=== PATIENT | female | born 1945 | race Caucasian/White ===

== ENCOUNTER 2017-08-01 13:46 | Inpatient (IN) | payer MEDICARE, BC ==
[2017-08-01] MEDS ORDERED: Sodium Chloride 0.9% 1,000 ML IV ONE ×2 (14:16→17:19)
[2017-08-01] MEDS ORDERED: Sodium Chloride 0.9% 10 ML Syringe FLUSH PRN (14:18)
--- NOTE | 2017-08-01 14:34 | EDM.PDOC ---
ED HPI GENERAL MEDICAL PROBLEM - General Chief Complaint: Neurological Problem Stated Complaint: WEAK,AND CONFUSED Time Seen by Provider: 08/01/17 14:34 Source of Information: Reports: Patient, Family (, daughter) History Limitations: Reports: No Limitations - History of Present Illness INITIAL COMMENTS - FREE TEXT/NARRATIVE: 68-year-old female presents with her and daughter for evaluation and treatment of confusion and weakness. Reportedly the first appreciated confusion yesterday. She is alert and orientated 3 will here in the ER. She does take longer than expected to respond to questions such as day, name and date of . She is currently denying any pain. She denies any chest pain, abdominal pain, headaches, cough, nausea and vomiting. Patient is a diabetic. Blood sugar upon arrival in the ER is 126. Patient has a diabetic foot ulcer to the right medial ball of her foot. Unclear exactly how long this has been going on for. Reportedly she has diabetic neuropathy. Right foots and distal lower leg are erythematous, swollen and warm to touch. Duration: Day(s): (2) - Related Data Allergies Allergy/AdvReac Type Severity Reaction Status Date / Time No Known Allergies Allergy Verified 07/03/14 19:52 Home Meds: Home Meds Pregabalin [Lyrica] 200 mg PO TID 07/03/14 [History] metFORMIN [Glucophage] 500 mg PO TIDM 07/03/14 [History] Insulin Glarg,Human.Rec.Analog [Lantus] 28 unit SUBCUT QPM 07/04/14 [History] Allopurinol [Zyloprim] 100 mg PO DAILY 08/01/17 [History] DULoxetine [Cymbalta] 60 mg PO BID 08/01/17 [History] Levothyroxine 75 mg PO DAILY 08/01/17 [History] Methocarbamol 500 - 1,000 mg PO TID PRN 08/01/17 [History] Metoprolol Tartrate 12.5 mg PO BID 08/01/17 [History] Simvastatin [Zocor] 10 mg PO BEDTIME 08/01/17 [History] fentaNYL [Fentanyl] 50 mcg TOP Q3D 08/01/17 [History] Social & Family History - Tobacco Use Smoking Status *Q: Never Smoker Second Hand Smoke Exposure: No - Alcohol Use Days Per Week of Alcohol Use: 0 - Recreational Drug Use Recreational Drug Use: No ED ROS GENERAL - Review of Systems Review Of Systems: See Below Constitutional: Reports: Weakness. Denies: Fever, Chills Respiratory: Denies: Shortness of Breath Cardiovascular: Denies: Chest Pain GI/Abdominal: Denies: Abdominal Pain, Nausea, Vomiting Skin: Reports: Wound (right ventral foot, diabetic foot ulcer) Neurological: Reports: Confusion, Weakness. Denies: Headache - Physical Exam Exam: See Below Exam Limited By: No Limitations General Appearance: Alert, WD/WN, No Apparent Distress Eye Exam: Bilateral Eye: PERRL Ears: Normal External Exam, Normal Canal, Hearing Grossly Normal, Normal TMs Nose: Normal Inspection Throat/Mouth: Other (dry muscus membranes) Neck: Normal Inspection, Full Range of Motion Respiratory/Chest: No Respiratory Distress, Lungs Clear, Normal Breath Sounds Cardiovascular: Normal Peripheral Pulses, Regular Rate, Rhythm, No Murmur GI/Abdominal: Normal Bowel Sounds, Soft, Non-Tender Neuro Exam (Abbreviated): Alert (AxOx3), Slow to Respond Skin Exam: Warm, Dry, Normal Color, Erythema (right foot and distal lower leg), Increased Warmth (right foot and distal lower leg), Wound/Incision ( approximately 2cm in diameter diabetic ulcer to the right medial ventral foot over the first metatarsal) EKG INTERPRETATION EKG Date: 08/01/17 Time: 15:35 Rhythm: NSR Rate (Beats/Min): 68 [place]: Normal P-Wave: Present QRS: Normal ST-T: Normal QT: Normal EKG Interpretation Comments: NSR at 68 bpm. No acute changes. Reviewed by myself a Dr. Gómez. Course - Vital Signs Last Recorded V/S: Last Vital Signs Temp 38.2 C H 08/01/17 17:38 Pulse 82 08/01/17 14:05 Resp 20 08/01/17 16:24 BP 146/62 H 08/01/17 16:24 Pulse Ox 95 08/01/17 16:24 - Orders/Labs/Meds Orders: Active Orders 24 hr Category Date Time Status Blood Glucose Check, Bedside [RC] ONETIME Care 08/01/17 14:05 Active Blood Glucose Check, Bedside [RC] QIDACANDBED Care 08/01/17 17:24 Active Cardiac Monitoring [RC] . DIRECTED Care 08/01/17 14:16 Active EKG Documentation Completion [RC] ASDIRECTED Care 08/01/17 14:17 Active Height and Weight [RC] DAILY Care 08/01/17 17:11 Active Intake and Output [RC] QSHIFT Care 08/01/17 17:11 Active Oxygen Therapy [RC] PRN Care 08/01/17 17:11 Active Peripheral IV Care [RC] . DIRECTED Care 08/01/17 14:18 Active RT Aerosol Therapy [RC] ASDIRECTED Care 08/01/17 17:15 Active Up With Assistance [RC] ASDIRECTED Care 08/01/17 17:11 Active Up ad [place] [RC] ASDIRECTED Care 08/01/17 17:11 Active VTE/DVT Education [RC] PER UNIT ROUTINE Care 08/01/17 17:11 Active Vital Signs [RC] Q4H Care 08/01/17 17:11 Active Consult to Case Management [CONS] Routine Cons 08/01/17 17:16 Active Consult to Diabetic Nurse Specialist [CONS] Routine Cons 08/01/17 17:16 Active Consult to Linux Network Engineer [CONS] Routine Cons 08/01/17 17:16 Active Consult to Cupola Melter Helper [CONS] Routine Cons 08/01/17 17:16 Active Consult to Spiritual Care [CONS] Routine Cons 08/01/17 17:16 Active OT Evaluation and Treatment [CONS] Routine Cons 08/01/17 17:16 Active PT Evaluation and Treatment [CONS] Routine Cons 08/01/17 17:16 Active Consistent Carbohydrate Diet [DIET] Diet 08/01/17 Dinner Active Chest 2V [CR] Stat Exams 08/01/17 14:16 Taken Foot Comp Min 3V Rt [CR] Stat Exams 08/01/17 14:18 Taken BASIC METABOLIC PANEL,BMP [CHEM] AM Lab 08/02/17 05:11 Ordered BASIC METABOLIC PANEL,BMP [CHEM] AM Lab 08/03/17 05:11 Ordered BASIC METABOLIC PANEL,BMP [CHEM] AM Lab 08/04/17 05:11 Ordered BASIC METABOLIC PANEL,BMP [CHEM] AM Lab 08/05/17 05:11 Ordered BASIC METABOLIC PANEL,BMP [CHEM] AM Lab 08/06/17 05:11 Ordered C-REACTIVE PROTEIN [CHEM] AM Lab 08/02/17 05:11 Ordered C-REACTIVE PROTEIN [CHEM] AM Lab 08/03/17 05:11 Ordered C-REACTIVE PROTEIN [CHEM] AM Lab 08/04/17 05:11 Ordered C-REACTIVE PROTEIN [CHEM] AM Lab 08/05/17 05:11 Ordered C-REACTIVE PROTEIN [CHEM] AM Lab 08/06/17 05:11 Ordered CBC WITH AUTO DIFF [HEME] AM Lab 08/02/17 05:11 Ordered CBC WITH AUTO DIFF [HEME] AM Lab 08/03/17 05:11 Ordered CBC WITH AUTO DIFF [HEME] AM Lab 08/04/17 05:11 Ordered CBC WITH AUTO DIFF [HEME] AM Lab 08/05/17 05:11 Ordered CBC WITH AUTO DIFF [HEME] AM Lab 08/06/17 05:11 Ordered CULTURE BLOOD [BC] Stat Lab 08/01/17 14:17 Ordered CULTURE BLOOD [BC] Stat Lab 08/01/17 14:41 Received CULTURE MRSA [RM] Stat Lab 08/01/17 17:16 Uncollected CULTURE URINE [RM] Stat Lab 08/01/17 15:45 Received MAGNESIUM [CHEM] AM Lab 08/02/17 05:11 Ordered MAGNESIUM [CHEM] AM Lab 08/03/17 05:11 Ordered MAGNESIUM [CHEM] AM Lab 08/04/17 05:11 Ordered MAGNESIUM [CHEM] AM Lab 08/05/17 05:11 Ordered VANCOMYCIN RANDOM [CHEM] Stat Lab 08/02/17 07:00 Ordered Acetaminophen [Tylenol] Med 08/01/17 17:11 Active 650 mg PO Q4H PRN Acetaminophen/HYDROcodone [[place] 325-5 MG] Med 08/01/17 17:11 Active 1 tab PO Q4H PRN Albuterol/Ipratropium [DuoNeb 3.0-0.5 MG/3 ML] Med 08/01/17 17:11 Active 3 ml NEB Q4H PRN Allopurinol [Zyloprim] Med 08/02/17 09:00 Active 100 mg PO DAILY Bisacodyl [Dulcolax] Med 08/01/17 17:11 Active 5 mg PO DAILY PRN DULoxetine [Cymbalta] Med 08/01/17 21:00 Active 60 mg PO BID Dextrose 50% in Water Med 08/01/17 17:24 Active 50 ml IVPUSH ASDIRECTED PRN Docusate Sodium [Colace] Med 08/01/17 17:11 Active 100 mg PO BID PRN Docusate Sodium/Sennosides [Senna Plus] Med 08/01/17 17:11 Active 1 tab PO BID PRN Enoxaparin [Lovenox] Med 08/02/17 09:00 Active 40 mg SUBCUT DAILY HYDROmorphone [Dilaudid] Med 08/01/17 17:11 Active 0.25 mg IVPUSH Q2H PRN Insulin Aspart [NovoLOG] Med 08/01/17 22:00 Active See Protocol SUBCUT QIDACANDBED Insulin Detemir [Levemir] Med 08/01/17 21:00 Active 14 unit SUBCUT BID LORazepam [Ativan] Med 08/01/17 17:11 Active 0.25 mg IV Q6H PRN Levothyroxine Med 08/02/17 09:00 Pending 75,000 mcg PO DAILY Magnesium Rep Pharmacy to Dose [Pharmacy to Dose - Med 08/01/17 17:30 Pending Magnesium Replacement] 1 dose .XX ASDIRECTED Methocarbamol [Robaxin] Med 08/01/17 17:19 Pending 500 - 1,000 mg PO TID PRN Metoprolol Tartrate [Lopressor] Med 08/01/17 21:00 Active 12.5 mg PO BID Metoprolol Tartrate [Lopressor] Med 08/01/17 17:21 Active 5 mg IVPUSH Q4H PRN Ondansetron [Zofran] Med 08/01/17 17:11 Active 4 mg IV Q6H PRN Piperacillin/Tazobactam [Zosyn] 4.5 gm Med 08/02/17 02:00 Active Sodium Chloride 0.9% [Normal Saline] 100 ml IV Q8H Polyethylene Glycol 3350 [MiraLAX] Med 08/01/17 17:11 Active 17 gm PO DAILY PRN Potassium Rep Pharmacy to Dose [Pharmacy to Dose - Med 08/01/17 17:30 Pending Potassium Replacement] 1 dose .XX ASDIRECTED Pregabalin Med 08/01/17 21:00 Pending 200 mg PO TID Promethazine [Phenergan] 12.5 mg Med 08/01/17 17:11 Active Sodium Chloride 0.9% [Normal Saline] 50 ml IV Q6H Saccharomyces Boulardii [Florastor] Med 08/01/17 21:00 Active 250 mg PO TID Simvastatin [Zocor] Med 08/01/17 21:00 Active 10 mg PO BEDTIME Sodium Chloride 0.9% [Normal Saline] 1,000 ml Med 08/01/17 17:15 Active IV ASDIRECTED Sodium Chloride 0.9% [Normal Saline] 1,000 ml Med 08/01/17 17:19 Active IV ONETIME Sodium Chloride 0.9% [Saline Flush] Med 08/01/17 14:18 Active 10 ml FLUSH ASDIRECTED PRN Temazepam [Restoril] Med 08/01/17 17:11 Active 7.5 mg PO BEDTIME PRN Vancomycin 1 gm Med 08/02/17 16:00 Active Vancomycin 250 mg Sodium Chloride 0.9% [Normal Saline] 500 ml IV Q24H Vancomycin Pharmacy to Dose [Pharmacy to Dose - Med 08/01/17 17:30 Pending Vancomycin] 1 dose .XX ASDIRECTED fentaNYL [Fentanyl] Med 08/01/17 17:30 Pending 50 mcg TOP Q3D hydrALAZINE [Apresoline] Med 08/01/17 17:21 Active 20 mg IVPUSH Q4H PRN metFORMIN [Glucophage] Med 08/02/17 07:00 Active 500 mg PO TIDM Blood Culture x2 Reflex Set [OM.PC] Stat Oth 08/01/17 14:16 Ordered Peripheral IV Insertion Adult [OM.PC] Routine Oth 08/01/17 14:18 Ordered Resuscitation Status Routine Resus Stat 08/01/17 17:11 Ordered EKG 12 Lead [EK] Stat Ther 08/01/17 14:16 Ordered Medication Orders Acetaminophen (Tylenol) 650 mg PO Q4H PRN PRN Reason: Pain (Mild 1-3)/fever Hydrocodone Bitart/Acetaminophen ([place] 325-5 Mg) 1 tab PO Q4H PRN PRN Reason: Pain (moderate 4-6) Albuterol/Ipratropium (Duoneb 3.0-0.5 Mg/3 Ml) 3 ml NEB Q4H PRN PRN Reason: Shortness Of Breath/wheezing Allopurinol (Zyloprim) 100 mg PO DAILY [facility]ENE Bisacodyl (Dulcolax) 5 mg PO DAILY PRN PRN Reason: Constipation Dextrose/Water (Dextrose 50% In Water) 50 ml IVPUSH ASDIRECTED PRN PRN Reason: Hypoglycemia Docusate Sodium (Colace) 100 mg PO BID PRN PRN Reason: Constipation Duloxetine HCl (Cymbalta) 60 mg PO BID [facility] Enoxaparin Sodium (Lovenox) 40 mg SUBCUT DAILY [facility] Hydralazine HCl (Apresoline) 20 mg IVPUSH Q4H PRN PRN Reason: Hypertension Hydromorphone HCl (Dilaudid) 0.25 mg IVPUSH Q2H PRN PRN Reason: Pain (severe 7-10) Sodium Chloride (Normal Saline) 1,000 mls @ 100 mls/hr IV ONETIME ONE Stop: 08/02/17 03:18 Last Admin: 08/01/17 17:24 Dose: 100 mls/hr Promethazine HCl 12.5 mg/ (Sodium Chloride) 50.5 mls @ 100 mls/hr IV Q6H PRN PRN Reason: Nausea/Vomiting Sodium Chloride (Normal Saline) 1,000 mls @ 50 mls/hr IV ASDIRECTED [facility] Piperacillin Sod/Tazobactam (Sod 4.5 gm/ Sodium Chloride) 100 mls @ 25 mls/hr IV Q8H [facility] Vancomycin HCl 1 gm/Vancomycin HCl 250 mg/ Sodium Chloride 500 mls @ 333.333 mls/hr IV Q24H [facility] Insulin Aspart (Novolog) 0 unit SUBCUT QIDACANDBED [facility] PRN Reason: Protocol Insulin Detemir (Levemir) 14 unit SUBCUT BID [facility] Levothyroxine Sodium (Levothyroxine) 75,000 mcg PO DAILY [facility] Lorazepam (Ativan) 0.25 mg IV Q6H PRN PRN Reason: Anxiety Magnesium Sulfate (Pharmacy To Dose - Magnesium Replacement) 1 dose .XX ASDIRECTED [facility] Metformin HCl (Glucophage) 500 mg PO TIDM [facility] Methocarbamol (Robaxin) 500 - 1,000 mg PO TID PRN PRN Reason: Spasms Metoprolol Tartrate (Lopressor) 12.5 mg PO BID [facility] Metoprolol Tartrate (Lopressor) 5 mg IVPUSH Q4H PRN PRN Reason: Tachycardia Non-Formulary Medication (Fentanyl [Fentanyl]) 50 mcg TOP Q3D [facility] Non-Formulary Medication (Pregabalin) 200 mg PO TID [facility] Ondansetron HCl (Zofran) 4 mg IV Q6H PRN PRN Reason: Nausea/Vomiting Polyethylene Glycol (Miralax) 17 gm PO DAILY PRN PRN Reason: Constipation Potassium Chloride (Pharmacy To Dose - Potassium Replacement) 1 dose .XX ASDIRECTED [facility] Saccharomyces Boulardii (Florastor) 250 mg PO TID HELENE Senna/Docusate Sodium (Senna Plus) 1 tab PO BID PRN PRN Reason: Constipation Simvastatin (Zocor) 10 mg PO BEDTIME [facility] Sodium Chloride (Saline Flush) 10 ml FLUSH ASDIRECTED PRN PRN Reason: Keep Vein Open Last Admin: 08/01/17 14:46 Dose: 10 ml Temazepam (Restoril) 7.5 mg PO BEDTIME PRN PRN Reason: Sleep Vancomycin HCl (Pharmacy To Dose - Vancomycin) 1 dose .XX ASDIRECTED [facility] Labs: Laboratory Tests 08/01/17 08/01/17 08/01/17 Range/Units 14:08 14:15 14:15 WBC 21.77 H (3.98-10.04) K/mm3 RBC 4.02 (3.98-5.22) M/mm3 Hgb 11.9 (11.2-15.7) gm/L Hct 36.6 (34.1-44.9) % MCV 91.0 (79.4-94.8) fl MCH 29.6 (25.6-32.2) pg MCHC 32.5 (32.2-35.5) g/dl RDW Std Deviation 47.3 H (36.4-46.3) fL Plt Count 245 (182-369) K/mm3 MPV 9.9 (9.4-12.3) fl Neutrophils % (Manual) 81 H (40-60) % Band Neutrophils % 2 (0-10) % Lymphocytes % (Manual) 13 L (20-40) % Atypical Lymphs % 0 % Monocytes % (Manual) 4 (2-10) % Eosinophils % (Manual) 0 L (0.7-5.8) % Basophils % (Manual) 0 L (0.1-1.2) Platelet Estimate Adequate RBC Morph Comment Normal ESR (0-20) mm/hr PT (8.0-13.0) SECONDS INR APTT (22-36) SECONDS Sodium 136 (136-145) mEq/L Potassium 3.8 (3.5-5.1) mEq/L Chloride 99 (98-107) mEq/L Carbon Dioxide 26 (21-32) mEq/L Anion Gap 14.8 (5-15) BUN 16 (7-18) mg/dL Creatinine 1.0 (0.55-1.02) mg/dL Est Cr Clr Drug Dosing 46.20 mL/min Estimated GFR (MDRD) 54 (>60) mL/min BUN/Creatinine Ratio 16.0 (14-18) Glucose 191 H (83-115) mg/dL POC Glucose 126 H (83-110) mg/dL Hemoglobin A1c (4.50-6.20) % Lactic Acid (0.4-2.0) mmol/L Calcium 8.8 (8.5-10.1) mg/dL Total Bilirubin 0.5 (0.2-1.0) mg/dL AST 37 (15-37) U/L ALT 19 (14-59) U/L Alkaline Phosphatase 58 (46-116) U/L CK-MB (CK-2) (0-3.6) ng/ml Troponin I (0.00-0.056) ng/mL C-Reactive Protein 16.0 H* (<1.0) mg/dL Total Protein 7.5 (6.4-8.2) g/dl Albumin 3.2 L (3.4-5.0) g/dl Globulin 4.3 gm/dL Albumin/Globulin Ratio 0.7 L (1-2) Urine Color (Yellow) Urine Appearance (Clear) Urine pH (5.0-8.0) Ur Specific [place] (1.005-1.030) Urine Protein (Negative) Urine Glucose (UA) (Negative) Urine Ketones (Negative) Urine Occult Blood (Negative) Urine Nitrite (Negative) Urine Bilirubin (Negative) Urine Urobilinogen (0.2-1.0) Ur Leukocyte Esterase (Negative) Urine RBC (0-5) /hpf Urine WBC (0-5) /hpf Ur Epithelial Cells (0-5) /hpf Urine Bacteria (FEW) /hpf Urine Mucus (FEW) /hpf Urine Opiates Screen (NEGATIVE) Ur Buprenorphine Scrn (NEGATIVE) Ur Oxycodone Screen (NEGATIVE) Urine Methadone Screen (NEGATIVE) Ur Propoxyphene Screen (NEGATIVE) Ur Barbiturates Screen (NEGATIVE) Ur Tricyclics Screen (NEGATIVE) Ur Phencyclidine Scrn (NEGATIVE) Ur Amphetamine Screen (NEGATIVE) U Methamphetamines Scrn (NEGATIVE) U Benzodiazepines Scrn (NEGATIVE) U Cocaine Metab Screen (NEGATIVE) U Marijuana (THC) Screen (NEGATIVE) Ethyl Alcohol 0.00 (0.00) gm% 08/01/17 08/01/17 08/01/17 Range/Units 14:15 14:15 14:15 WBC (3.98-10.04) K/mm3 RBC (3.98-5.22) M/mm3 Hgb (11.2-15.7) gm/L Hct (34.1-44.9) % MCV (79.4-94.8) fl MCH (25.6-32.2) pg MCHC (32.2-35.5) g/dl RDW Std Deviation (36.4-46.3) fL Plt Count (182-369) K/mm3 MPV (9.4-12.3) fl Neutrophils % (Manual) (40-60) % Band Neutrophils % (0-10) % Lymphocytes % (Manual) (20-40) % Atypical Lymphs % % Monocytes % (Manual) (2-10) % Eosinophils % (Manual) (0.7-5.8) % Basophils % (Manual) (0.1-1.2) Platelet Estimate RBC Morph Comment ESR 68 H (0-20) mm/hr PT 11.8 (8.0-13.0) SECONDS INR 1.08 APTT 29 (22-36) SECONDS Sodium (136-145) mEq/L Potassium (3.5-5.1) mEq/L Chloride (98-107) mEq/L Carbon Dioxide (21-32) mEq/L Anion Gap (5-15) BUN (7-18) mg/dL Creatinine (0.55-1.02) mg/dL Est Cr Clr Drug Dosing mL/min Estimated GFR (MDRD) (>60) mL/min BUN/Creatinine Ratio (14-18) Glucose (83-115) mg/dL POC Glucose (83-110) mg/dL Hemoglobin A1c (4.50-6.20) % Lactic Acid (0.4-2.0) mmol/L Calcium (8.5-10.1) mg/dL Total Bilirubin (0.2-1.0) mg/dL AST (15-37) U/L ALT (14-59) U/L Alkaline Phosphatase (46-116) U/L CK-MB (CK-2) 7.5 H (0-3.6) ng/ml Troponin I < 0.017 (0.00-0.056) ng/mL C-Reactive Protein (<1.0) mg/dL Total Protein (6.4-8.2) g/dl Albumin (3.4-5.0) g/dl Globulin gm/dL Albumin/Globulin Ratio (1-2) Urine Color (Yellow) Urine Appearance (Clear) Urine pH (5.0-8.0) Ur Specific [place] (1.005-1.030) Urine Protein (Negative) Urine Glucose (UA) (Negative) Urine Ketones (Negative) Urine Occult Blood (Negative) Urine Nitrite (Negative) Urine Bilirubin (Negative) Urine Urobilinogen (0.2-1.0) Ur Leukocyte Esterase (Negative) Urine RBC (0-5) /hpf Urine WBC (0-5) /hpf Ur Epithelial Cells (0-5) /hpf Urine Bacteria (FEW) /hpf Urine Mucus (FEW) /hpf Urine Opiates Screen (NEGATIVE) Ur Buprenorphine Scrn (NEGATIVE) Ur Oxycodone Screen (NEGATIVE) Urine Methadone Screen (NEGATIVE) Ur Propoxyphene Screen (NEGATIVE) Ur Barbiturates Screen (NEGATIVE) Ur Tricyclics Screen (NEGATIVE) Ur Phencyclidine Scrn (NEGATIVE) Ur Amphetamine Screen (NEGATIVE) U Methamphetamines Scrn (NEGATIVE) U Benzodiazepines Scrn (NEGATIVE) U Cocaine Metab Screen (NEGATIVE) U Marijuana (THC) Screen (NEGATIVE) Ethyl Alcohol (0.00) gm% 08/01/17 08/01/17 08/01/17 Range/Units 14:15 15:05 15:45 WBC (3.98-10.04) K/mm3 RBC (3.98-5.22) M/mm3 Hgb (11.2-15.7) gm/L Hct (34.1-44.9) % MCV (79.4-94.8) fl MCH (25.6-32.2) pg MCHC (32.2-35.5) g/dl RDW Std Deviation (36.4-46.3) fL Plt Count (182-369) K/mm3 MPV (9.4-12.3) fl Neutrophils % (Manual) (40-60) % Band Neutrophils % (0-10) % Lymphocytes % (Manual) (20-40) % Atypical Lymphs % % Monocytes % (Manual) (2-10) % Eosinophils % (Manual) (0.7-5.8) % Basophils % (Manual) (0.1-1.2) Platelet Estimate RBC Morph Comment ESR (0-20) mm/hr PT (8.0-13.0) SECONDS INR APTT (22-36) SECONDS Sodium (136-145) mEq/L Potassium (3.5-5.1) mEq/L Chloride (98-107) mEq/L Carbon Dioxide (21-32) mEq/L Anion Gap (5-15) BUN (7-18) mg/dL Creatinine (0.55-1.02) mg/dL Est Cr Clr Drug Dosing mL/min Estimated GFR (MDRD) (>60) mL/min BUN/Creatinine Ratio (14-18) Glucose (83-115) mg/dL POC Glucose (83-110) mg/dL Hemoglobin A1c 6.50 H (4.50-6.20) % Lactic Acid 1.9 (0.4-2.0) mmol/L Calcium (8.5-10.1) mg/dL Total Bilirubin (0.2-1.0) mg/dL AST (15-37) U/L ALT (14-59) U/L Alkaline Phosphatase (46-116) U/L CK-MB (CK-2) (0-3.6) ng/ml Troponin I (0.00-0.056) ng/mL C-Reactive Protein (<1.0) mg/dL Total Protein (6.4-8.2) g/dl Albumin (3.4-5.0) g/dl Globulin gm/dL Albumin/Globulin Ratio (1-2) Urine Color Yellow (Yellow) Urine Appearance Clear (Clear) Urine pH 5.5 (5.0-8.0) Ur Specific [place] 1.025 (1.005-1.030) Urine Protein 1+ H (Negative) Urine Glucose (UA) Negative (Negative) Urine Ketones Trace H (Negative) Urine Occult Blood Negative (Negative) Urine Nitrite Negative (Negative) Urine Bilirubin Negative (Negative) Urine Urobilinogen 0.2 (0.2-1.0) Ur Leukocyte Esterase Negative (Negative) Urine RBC 0-5 (0-5) /hpf Urine WBC 0-5 (0-5) /hpf Ur Epithelial Cells 0-5 (0-5) /hpf Urine Bacteria Moderate H (FEW) /hpf Urine Mucus Moderate H (FEW) /hpf Urine Opiates Screen (NEGATIVE) Ur Buprenorphine Scrn (NEGATIVE) Ur Oxycodone Screen (NEGATIVE) Urine Methadone Screen (NEGATIVE) Ur Propoxyphene Screen (NEGATIVE) Ur Barbiturates Screen (NEGATIVE) Ur Tricyclics Screen (NEGATIVE) Ur Phencyclidine Scrn (NEGATIVE) Ur Amphetamine Screen (NEGATIVE) U Methamphetamines Scrn (NEGATIVE) U Benzodiazepines Scrn (NEGATIVE) U Cocaine Metab Screen (NEGATIVE) U Marijuana (THC) Screen (NEGATIVE) Ethyl Alcohol (0.00) gm% 08/01/17 Range/Units 15:45 WBC (3.98-10.04) K/mm3 RBC (3.98-5.22) M/mm3 Hgb (11.2-15.7) gm/L Hct (34.1-44.9) % MCV (79.4-94.8) fl MCH (25.6-32.2) pg MCHC (32.2-35.5) g/dl RDW Std Deviation (36.4-46.3) fL Plt Count (182-369) K/mm3 MPV (9.4-12.3) fl Neutrophils % (Manual) (40-60) % Band Neutrophils % (0-10) % Lymphocytes % (Manual) (20-40) % Atypical Lymphs % % Monocytes % (Manual) (2-10) % Eosinophils % (Manual) (0.7-5.8) % Basophils % (Manual) (0.1-1.2) Platelet Estimate RBC Morph Comment ESR (0-20) mm/hr PT (8.0-13.0) SECONDS INR APTT (22-36) SECONDS Sodium (136-145) mEq/L Potassium (3.5-5.1) mEq/L Chloride (98-107) mEq/L Carbon Dioxide (21-32) mEq/L Anion Gap (5-15) BUN (7-18) mg/dL Creatinine (0.55-1.02) mg/dL Est Cr Clr Drug Dosing mL/min Estimated GFR (MDRD) (>60) mL/min BUN/Creatinine Ratio (14-18) Glucose (83-115) mg/dL POC Glucose (83-110) mg/dL Hemoglobin A1c (4.50-6.20) % Lactic Acid (0.4-2.0) mmol/L Calcium (8.5-10.1) mg/dL Total Bilirubin (0.2-1.0) mg/dL AST (15-37) U/L ALT (14-59) U/L Alkaline Phosphatase (46-116) U/L CK-MB (CK-2) (0-3.6) ng/ml Troponin I (0.00-0.056) ng/mL C-Reactive Protein (<1.0) mg/dL Total Protein (6.4-8.2) g/dl Albumin (3.4-5.0) g/dl Globulin gm/dL Albumin/Globulin Ratio (1-2) Urine Color (Yellow) Urine Appearance (Clear) Urine pH (5.0-8.0) Ur Specific [place] (1.005-1.030) Urine Protein (Negative) Urine Glucose (UA) (Negative) Urine Ketones (Negative) Urine Occult Blood (Negative) Urine Nitrite (Negative) Urine Bilirubin (Negative) Urine Urobilinogen (0.2-1.0) Ur Leukocyte Esterase (Negative) Urine RBC (0-5) /hpf Urine WBC (0-5) /hpf Ur Epithelial Cells (0-5) /hpf Urine Bacteria (FEW) /hpf Urine Mucus (FEW) /hpf Urine Opiates Screen Negative (NEGATIVE) Ur Buprenorphine Scrn Negative (NEGATIVE) Ur Oxycodone Screen Negative (NEGATIVE) Urine Methadone Screen Negative (NEGATIVE) Ur Propoxyphene Screen Negative (NEGATIVE) Ur Barbiturates Screen Negative (NEGATIVE) Ur Tricyclics Screen Negative (NEGATIVE) Ur Phencyclidine Scrn Negative (NEGATIVE) Ur Amphetamine Screen Negative (NEGATIVE) U Methamphetamines Scrn Negative (NEGATIVE) U Benzodiazepines Scrn Negative (NEGATIVE) U Cocaine Metab Screen Negative (NEGATIVE) U Marijuana (THC) Screen Negative (NEGATIVE) Ethyl Alcohol (0.00) gm% Meds: Medications Generic Name Dose Route Start Last Admin Trade Name Freq PRN Reason Stop Dose Admin Acetaminophen 650 mg 08/01/17 17:11 Tylenol PO Q4H PRN Pain (Mild 1-3)/fever Hydrocodone Bitart/Acetaminophen 1 tab 08/01/17 17:11 Varina 325-5 Mg PO Q4H PRN Pain (moderate 4-6) Albuterol/Ipratropium 3 ml 08/01/17 17:11 Duoneb 3.0-0.5 Mg/3 Ml NEB Q4H PRN Shortness Of Breath/wheezing Allopurinol 100 mg 08/02/17 09:00 Zyloprim PO DAILY [facility] Bisacodyl 5 mg 08/01/17 17:11 Dulcolax PO DAILY PRN Constipation Dextrose/Water 50 ml 08/01/17 17:24 Dextrose 50% In Water IVPUSH ASDIRECTED PRN Hypoglycemia Docusate Sodium 100 mg 08/01/17 17:11 Colace PO BID PRN Constipation Duloxetine HCl 60 mg 08/01/17 21:00 Cymbalta PO BID [facility] Enoxaparin Sodium 40 mg 08/02/17 09:00 Lovenox SUBCUT DAILY [facility] Hydralazine HCl 20 mg 08/01/17 17:21 Apresoline IVPUSH Q4H PRN Hypertension Hydromorphone HCl 0.25 mg 08/01/17 17:11 Dilaudid IVPUSH Q2H PRN Pain (severe 7-10) Sodium Chloride 1,000 mls @ 100 mls/hr 08/01/17 17:19 08/01/17 17:24 Normal Saline IV 08/02/17 03:18 100 mls/hr ONETIME ONE Administration Promethazine HCl 12.5 mg/ 50.5 mls @ 100 mls/hr 08/01/17 17:11 Sodium Chloride IV Q6H PRN Nausea/Vomiting Sodium Chloride 1,000 mls @ 50 mls/hr 08/01/17 17:15 Normal Saline IV ASDIRECTED [facility] Piperacillin Sod/Tazobactam 100 mls @ 25 mls/hr 08/02/17 02:00 Sod 4.5 gm/ Sodium Chloride IV Q8H [facility] Vancomycin HCl 1 gm/ 500 mls @ 333.333 mls/hr 08/02/17 16:00 Vancomycin HCl 250 mg/ Sodium IV Chloride Q24H [facility] Insulin Aspart 0 unit 08/01/17 22:00 Novolog SUBCUT QIDACANDBED [facility] Protocol Insulin Detemir 14 unit 08/01/17 21:00 Levemir SUBCUT BID [facility] Levothyroxine Sodium 75,000 mcg 08/02/17 09:00 Levothyroxine PO DAILY [facility] Lorazepam 0.25 mg 08/01/17 17:11 Ativan IV Q6H PRN Anxiety Magnesium Sulfate 1 dose 08/01/17 17:30 Pharmacy To Dose - Magnesium Replacement .XX ASDIRECTED [facility] [facility] Metformin HCl 500 mg 08/02/17 07:00 Glucophage PO TIDM [facility] Methocarbamol 500 - 1,000 mg 08/01/17 17:19 Robaxin PO TID PRN Spasms Metoprolol Tartrate 12.5 mg 08/01/17 21:00 Lopressor PO BID [facility] Metoprolol Tartrate 5 mg 08/01/17 17:21 Lopressor IVPUSH Q4H PRN Tachycardia Non-Formulary Medication 50 mcg 08/01/17 17:30 Fentanyl [Fentanyl] TOP Q3D [facility] Non-Formulary Medication 200 mg 08/01/17 21:00 Pregabalin PO TID [facility] Ondansetron HCl 4 mg 08/01/17 17:11 Zofran IV Q6H PRN Nausea/Vomiting Polyethylene Glycol 17 gm 08/01/17 17:11 Miralax PO DAILY PRN Constipation Potassium Chloride 1 dose 08/01/17 17:30 Pharmacy To Dose - Potassium Replacement .XX ASDIRECTED [facility] Saccharomyces Boulardii 250 mg 08/01/17 21:00 Florastor PO TID [facility] Senna/Docusate Sodium 1 tab 08/01/17 17:11 Senna Plus PO BID PRN Constipation Simvastatin 10 mg 08/01/17 21:00 Zocor PO BEDTIME [facility] Sodium Chloride 10 ml 08/01/17 14:18 08/01/17 14:46 Saline Flush FLUSH 10 ml ASDIRECTED PRN Administration Keep Vein Open Temazepam 7.5 mg 08/01/17 17:11 Restoril PO BEDTIME PRN Sleep Vancomycin HCl 1 dose 08/01/17 17:30 Pharmacy To Dose - Vancomycin .XX ASDIRECTED [facility] Discontinued Medications Generic Name Dose Route Start Last Admin Trade Name Freq PRN Reason Stop Dose Admin Acetaminophen 650 mg 08/01/17 17:30 08/01/17 17:38 Tylenol PO 08/01/17 17:31 650 mg NOW ONE Administration Sodium Chloride 1,000 mls @ 999 mls/hr 08/01/17 14:16 08/01/17 16:25 Normal Saline IV 08/01/17 15:16 999 mls/hr ONETIME ONE Infusion Ceftriaxone Sodium 2 gm/ 100 mls @ 200 mls/hr 08/01/17 16:01 Sodium Chloride IV 08/01/17 16:30 ONETIME ONE Vancomycin HCl 1 gm/ Sodium 250 mls @ 250 mls/hr 08/01/17 16:05 08/01/17 16: 26 Chloride IV 08/01/17 17:04 250 mls/hr ONETIME ONE Administration Piperacillin Sod/Tazobactam 100 mls @ 200 mls/hr 08/01/17 17:45 Sod 4.5 gm/ Sodium Chloride IV 08/01/17 18:14 ONETIME ONE Sodium Chloride Confirm 08/01/17 17:39 Normal Saline Administered 08/01/17 17:40 Dose 100 mls @ as directed .ROUTE .[facility] - Radiology Interpretation Free Text/Narrative:: Head CT Technique: Multiple axial sections brain were obtained. Intravenous contrast was not utilized. Comparison: No previous intracranial imaging is available. Findings: Ventricles along with basal cisterns and sulci over convexities are within normal limits for the patient's age. Very minimal areas of diminished density are noted within the periventricular white matter compatible with minimal small vessel ischemic demyelination change. No other abnormal parenchymal densities are seen. No evidence of intracranial hemorrhage. No midline shift or mass effect is seen. Bone window settings were reviewed which shows the visualized sinuses to appear clear. Incidental underaeration of the right mastoid sinus is noted as a normal variant. No acute calvarial abnormality is seen. Impression: 1. Incidental findings as described above. No acute intracranial abnormality is identified. Xray of the right foot shows no bony abnormality Xray of the chest shows no acute intrathoracic process. CT right foot Technique: Multiple axial sections through the right foot were obtained. Reconstructed coronal and sagittal images were obtained. Intravenous contrast was not utilized. Comparison: Previous plain film foot study performed on the same day (2:17 PM). Findings: Plantar spur is seen. Spur and several calcifications are seen at the attachment of the Achilles tendon to the calcaneus. Bony densities are seen off the medial malleolus compatible with old injury. Soft tissue swelling is seen dorsally. No acute fracture is seen. Soft tissue swelling also noted within the ball of the foot at the level of the first metatarsal. There is an area of focal osteoporosis within the shaft of the first metatarsal. This is likely due to focal osteopenia as no cortical erosions are seen in this area to indicate osteomyelitis. Other portions of the bony structures show no definite erosions. No acute fracture is identified. Impression: 1. Soft tissue swelling, calcaneal spurs and old bony densities are noted off the medial malleolus. 2. No acute bony abnormality is identified. If symptoms are persistent, MRI could be obtained to further evaluate for osteomyelitis. - Re-Assessments/Exams Free Text/Narrative Re-Assessment/Exam: 08/01/17 16:03 Awaiting influenza. Awaiting UA. Patient's lab results have (mostly) returned. Concern for sepsis. Etiology is urinary tract infection versus cellulitis. I'm still concerned for an osteomyelitis. We will obtain a CT of her foot to further evaluate. Nursing staff reports to me that the patient seems more confused than when she first arrived. She was alert and orientated 3 just slow to respond. She is now alert and orientated to person and place but not time. She has been receiving fluids at 100 an hour, asked nursing staff to give her a 1 L bolus. Case discussed with Dr. Gómez. Recommended starting vanco for concern over osteo. 08/01/17 17:15 Influenza returned negative UA has no nitrates and leukocytes. Moderate bacteria seen on microscopy. Urine has been sent for culture. Blood cultures are pending. CT returned. Osteomyelitis not identified on CT. I feel the cellulitis is likely the cause of her infection. I am concerned that she is septic. I discussed the case with Dr. Law, hospice on-call. He agrees to the admission. Departure - Departure Time of Disposition: 17:29 Disposition: Admitted As Inpatient 64 Condition: Poor Clinical Impression: Cellulitis of foot, Altered mental status - Discharge Information - My Orders Last 24 Hours: My Active Orders 08/01/17 14:05 Blood Glucose Check, Bedside [RC] ONETIME 08/01/17 14:16 Cardiac Monitoring [RC] . DIRECTED Chest 2V [CR] Stat Blood Culture x2 Reflex Set [OM.PC] Stat EKG 12 Lead [EK] Stat 08/01/17 14:17 EKG Documentation Completion [RC] ASDIRECTED CULTURE BLOOD [BC] Stat 08/01/17 14:18 Peripheral IV Care [RC] . DIRECTED Foot Comp Min 3V Rt [CR] Stat Sodium Chloride 0.9% [Saline Flush] 10 ml FLUSH ASDIRECTED PRN Peripheral IV Insertion Adult [OM.PC] Routine 08/01/17 14:41 CULTURE BLOOD [BC] Stat 08/01/17 15:45 CULTURE URINE [RM] Stat 08/01/17 17:19 Sodium Chloride 0.9% [Normal Saline] 1,000 ml IV ONETIME - Assessment/Plan Last 24 Hours: My Active Orders 08/01/17 14:05 Blood Glucose Check, Bedside [RC] ONETIME 08/01/17 14:16 Cardiac Monitoring [RC] . DIRECTED Chest 2V [CR] Stat Blood Culture x2 Reflex Set [OM.PC] Stat EKG 12 Lead [EK] Stat 08/01/17 14:17 EKG Documentation Completion [RC] ASDIRECTED CULTURE BLOOD [BC] Stat 08/01/17 14:18 Peripheral IV Care [RC] . DIRECTED Foot Comp Min 3V Rt [CR] Stat Sodium Chloride 0.9% [Saline Flush] 10 ml FLUSH ASDIRECTED PRN Peripheral IV Insertion Adult [OM.PC] Routine 08/01/17 14:41 CULTURE BLOOD [BC] Stat 08/01/17 15:45 CULTURE URINE [RM] Stat 08/01/17 17:19 Sodium Chloride 0.9% [Normal Saline] 1,000 ml IV ONETIME
--- NOTE | 2017-08-01 15:34 | CT ---
Head CT Technique: Multiple axial sections brain were obtained. Intravenous contrast was not utilized. Comparison: No previous intracranial imaging is available. Findings: Ventricles along with basal cisterns and sulci over convexities are within normal limits for the patient's age. Very minimal areas of diminished density are noted within the periventricular white matter compatible with minimal small vessel ischemic demyelination change. No other abnormal parenchymal densities are seen. No evidence of intracranial hemorrhage. No midline shift or mass effect is seen. Bone window settings were reviewed which shows the visualized sinuses to appear clear. Incidental underaeration of the right mastoid sinus is noted as a normal variant. No acute calvarial abnormality is seen. Impression: 1. Incidental findings as described above. No acute intracranial abnormality is identified. Diagnostic code #2
[2017-08-01] MEDS ORDERED: cefTRIAXone 2 GM in Sodium Chloride 0.9% 100 ML IV ONE (16:01)
--- NOTE | 2017-08-01 16:54 | CT ---
CT right foot Technique: Multiple axial sections through the right foot were obtained. Reconstructed coronal and sagittal images were obtained. Intravenous contrast was not utilized. Comparison: Previous plain film foot study performed on the same day (2:17 PM). Findings: Plantar spur is seen. Spur and several calcifications are seen at the attachment of the Achilles tendon to the calcaneus. Bony densities are seen off the medial malleolus compatible with old injury. Soft tissue swelling is seen dorsally. No acute fracture is seen. Soft tissue swelling also noted within the ball of the foot at the level of the first metatarsal. There is an area of focal osteoporosis within the shaft of the first metatarsal. This is likely due to focal osteopenia as no cortical erosions are seen in this area to indicate osteomyelitis. Other portions of the bony structures show no definite erosions. No acute fracture is identified. Impression: 1. Soft tissue swelling, calcaneal spurs and old bony densities are noted off the medial malleolus. 2. No acute bony abnormality is identified. If symptoms are persistent, MRI could be obtained to further evaluate for osteomyelitis. Diagnostic code #2
[2017-08-01] MEDS ORDERED: Acetaminophen 325 MG Tab PO PRN (17:11)
[2017-08-01] MEDS ORDERED: Ondansetron 4 MG/2 ML SDV IV PRN (17:11)
[2017-08-01] MEDS ORDERED: HYDROmorphone 0.5 MG/0.5 ML Syringe IVPUSH PRN (17:11)
[2017-08-01] MEDS ORDERED: Polyethylene Glycol 3350 Powder 17 GM Packet PO PRN (17:11)
[2017-08-01] MEDS ORDERED: Albuterol/Ipratropium 3.0-0.5 MG/3 ML Neb Soln NEB PRN (17:11)
[2017-08-01] MEDS ORDERED: Docusate Sodium 100 MG Cap PO PRN (17:11)
[2017-08-01] MEDS ORDERED: Acetaminophen/HYDROcodone 325-5 MG Tab PO PRN (17:11)
[2017-08-01] MEDS ORDERED: Temazepam 7.5 MG Cap PO PRN (17:11)
[2017-08-01] MEDS ORDERED: LORazepam 2 MG/ML MDV IV PRN (17:11)
[2017-08-01] MEDS ORDERED: Promethazine 12.5 MG in Sodium Chloride 0.9% 50 ML IV PRN (17:11)
[2017-08-01] MEDS ORDERED: Bisacodyl 5 MG Tab PO PRN (17:11)
--- NOTE | 2017-08-01 17:11 | PCM.HP ---
H&P History of Present Illness - General Date of Service: 08/01/17 Admit Problem/Dx: Follow Up Source of Information: Patient, Family, Old Records, Provider, RN Notes Reviewed History Limitations: Reports: Physical Impairment - History of Present Illness Initial Comments - Free Text/Narative: This is a 72 yo elderly white female with past medical hx/o hypertension, hyperlipidemia, peripheral neuropathy, opioid dependence for chronic pain syndrome, and hypothyroidism who was brought into the emergency department for evaluation of acute confusion associated with generalized weakness that started yesterday. Patient reports similar history back in 2013. However upon presentation to the emergency department, the patient was found to be alert awake and oriented 3. Patient carries a long-standing history of diabetes type 2. She reports having a good controlled blood sugar and an excellent A1c 6 months ago. In the emergency department, she was found to have an ulcerated foot localized to the right medial ball of her right foot. Her foot ulcers is associated with erythema and edema. However she denies any signs of systemic infections. Her initial workup in the emergency department shows a WBC of 21.77, RDW of 47.3 , 81% of neutrophils, lymphocytes of 18% and ESR of 68. Her coagulation studies are within normal limits. Her chemistry is remarkable for glucose of 191, hemoglobin A1c of 6.50, CK-MB of 7.5, CRP of 16 and albumin at 3.2. Her troponin is within normal limits. Her UA and UDS are within normal limits. Her blood alcohol level is 0. Head CT scan report reads no acute intracranial abnormality identified. Right foot CT scan without contrast report reads soft tissue edema, [place] heels spurs an old bony densities are noted of the medial malleolus. No acute abnormality is identified. Patient is being admitted for medical evaluation and management of altered mental status and diabetic foot ulcers/SSTI. She is CPR only. - Related Data Allergies/Adverse Reactions: Allergies Allergy/AdvReac Type Severity Reaction Status Date / Time No Known Allergies Allergy Verified 07/03/14 19:52 Home Medications: Home Meds Pregabalin [Lyrica] 200 mg PO TID 07/03/14 [History] metFORMIN [Glucophage] 500 mg PO TIDM 07/03/14 [History] Insulin Glarg,Human.Rec.Analog [Lantus] 28 unit SUBCUT QPM 07/04/14 [History] Allopurinol [Zyloprim] 100 mg PO DAILY 08/01/17 [History] DULoxetine [Cymbalta] 60 mg PO BID 08/01/17 [History] Levothyroxine 75 mg PO DAILY 08/01/17 [History] Methocarbamol 500 - 1,000 mg PO TID PRN 08/01/17 [History] Metoprolol Tartrate 12.5 mg PO BID 08/01/17 [History] Simvastatin [Zocor] 10 mg PO BEDTIME 08/01/17 [History] fentaNYL [Fentanyl] 50 mcg TOP Q3D 08/01/17 [History] Past Medical History HEENT History: Reports: Impaired Vision Cardiovascular History: Reports: High Cholesterol, Hypertension Genitourinary History: Reports: Renal Calculus Musculoskeletal History: Reports: Gout Neurological History: Reports: Neuropathy, Peripheral Endocrine/Metabolic History: Reports: Diabetes, Type II, Hypothyroidism - Past Surgical History HEENT Surgical History: Reports: Cataract Surgery, Oral Surgery Female Surgical History: Reports: Hysterectomy Musculoskeletal Surgical History: Reports: Other (See Below) Other Musculoskeletal Surgeries/Procedures:: left ankle surgery Social & Family History - Tobacco Use Smoking Status *Q: Never Smoker Second Hand Smoke Exposure: No - Caffeine Use Caffeine Use: Reports: Coffee, Soda - Alcohol Use Days Per Week of Alcohol Use: 0 - Recreational Drug Use Recreational Drug Use: No H&P Review of Systems - Review of Systems: Review Of Systems: See Below General: Reports: Weakness. Denies: Fever, Chills, Malaise, Fatigue, Night Sweats HEENT: Reports: No Symptoms Pulmonary: Denies: Shortness of Breath Cardiovascular: Reports: Edema. Denies: Chest Pain Gastrointestinal: Denies: Abdominal Pain, Nausea, Vomiting Genitourinary: Reports: No Symptoms Musculoskeletal: Reports: Leg Pain Skin: Reports: Erythema (right lower extremity), Other (dime like size black ulcer at the ball of the right foot) Psychiatric: Reports: Confusion. Denies: Mood Lability, Anxiety, Agitation, Suicidal Ideation, Homicidal Ideation Neurological: Reports: Weakness, Gait Disturbance. Denies: Dizziness, Difficulty Walking Hematologic/Lymphatic: Reports: No Symptoms Immunologic: Reports: No Symptoms Exam - Exam Exam: See Below - Vital Signs Vital Signs: Last Vital Signs Temp 37.8 C 08/01/17 16:24 Pulse 82 08/01/17 14:05 Resp 20 08/01/17 16:24 BP 146/62 H 08/01/17 16:24 Pulse Ox 95 08/01/17 16:24 Weight: 81.647 kg - Exam General: Alert, Oriented, Cooperative, Mild Distress HEENT: Conjunctiva Clear, EACs Clear, EOMI, Mucosa Moist & [place], Nares Patent, Normal Nasal Septum, Posterior Pharynx Clear, Pupils Equal, Pupils Reactive, TMs Clear, Other (Hearing Impairment). No: Hearing Intact Neck: Supple, Trachea Midline, +2 Carotid Pulse wo Bruit Lungs: Clear to Auscultation, Normal Respiratory Effort Cardiovascular: Regular Rate, Regular Rhythm GI/Abdominal Exam: Normal Bowel Sounds, Soft, Non-Tender, No Organomegaly, No Distention, No Abnormal Bruit, No Mass, Pelvis Stable (Female) Exam: Deferred Rectal (Female) Exam: Deferred Back Exam: Normal Inspection, Decreased Range of Motion Extremities: Normal Inspection (left lower extremity), Normal Range of Motion ( left lower extremity), Non-Tender (left lower extremity), No Pedal Edema (left lower extremity), Normal Capillary Refill (left lower extremity), Leg Pain ( right lower extremity), Limited Range of Motion (right lower extremity), Increased Warmth (right lower extremity), Redness (right lower extremity), Other (dime size ulcer on the medial ball of her right foot) Peripheral Pulses: 1+: Posterior Tibial (R), Dorsalis Pedis (R), 2+: Posterior Tibial (L), Dorsalis Pedis (L) Skin: Warm, Dry, Intact, Other (diabetic foot ulcer on right foot) Neuro Extensive - Mental Status: Oriented x3, Normal Cognition, Memory Intact Neuro Extensive - Motor, Sensory, Reflexes: CN II-XII Intact, Abnormal Gait Psychiatric: Alert, Normal Affect, Normal Mood - Patient Data Lab Results Last 24 hrs: Laboratory Results - last 24 hr 08/01/17 08/01/17 08/01/17 Range/Units 14:08 14:15 14:15 WBC 21.77 H (3.98-10.04) K/mm3 RBC 4.02 (3.98-5.22) M/mm3 Hgb 11.9 (11.2-15.7) gm/L Hct 36.6 (34.1-44.9) % MCV 91.0 (79.4-94.8) fl MCH 29.6 (25.6-32.2) pg MCHC 32.5 (32.2-35.5) g/dl RDW Std Deviation 47.3 H (36.4-46.3) fL Plt Count 245 (182-369) K/mm3 MPV 9.9 (9.4-12.3) fl Neutrophils % (Manual) 81 H (40-60) % Band Neutrophils % 2 (0-10) % Lymphocytes % (Manual) 13 L (20-40) % Atypical Lymphs % 0 % Monocytes % (Manual) 4 (2-10) % Eosinophils % (Manual) 0 L (0.7-5.8) % Basophils % (Manual) 0 L (0.1-1.2) Platelet Estimate Adequate RBC Morph Comment Normal PT (8.0-13.0) SECONDS INR APTT (22-36) SECONDS Sodium 136 (136-145) mEq/L Potassium 3.8 (3.5-5.1) mEq/L Chloride 99 (98-107) mEq/L Carbon Dioxide 26 (21-32) mEq/L Anion Gap 14.8 (5-15) BUN 16 (7-18) mg/dL Creatinine 1.0 (0.55-1.02) mg/dL Est Cr Clr Drug Dosing 46.20 mL/min Estimated GFR (MDRD) 54 (>60) mL/min BUN/Creatinine Ratio 16.0 (14-18) Glucose 191 H (83-115) mg/dL POC Glucose 126 H (83-110) mg/dL Lactic Acid (0.4-2.0) mmol/L Calcium 8.8 (8.5-10.1) mg/dL Total Bilirubin 0.5 (0.2-1.0) mg/dL AST 37 (15-37) U/L ALT 19 (14-59) U/L Alkaline Phosphatase 58 (46-116) U/L CK-MB (CK-2) (0-3.6) ng/ml Troponin I (0.00-0.056) ng/mL C-Reactive Protein 16.0 H* (<1.0) mg/dL Total Protein 7.5 (6.4-8.2) g/dl Albumin 3.2 L (3.4-5.0) g/dl Globulin 4.3 gm/dL Albumin/Globulin Ratio 0.7 L (1-2) Urine Color (Yellow) Urine Appearance (Clear) Urine pH (5.0-8.0) Ur Specific [place] (1.005-1.030) Urine Protein (Negative) Urine Glucose (UA) (Negative) Urine Ketones (Negative) Urine Occult Blood (Negative) Urine Nitrite (Negative) Urine Bilirubin (Negative) Urine Urobilinogen (0.2-1.0) Ur Leukocyte Esterase (Negative) Urine RBC (0-5) /hpf Urine WBC (0-5) /hpf Ur Epithelial Cells (0-5) /hpf Urine Bacteria (FEW) /hpf Urine Mucus (FEW) /hpf Urine Opiates Screen (NEGATIVE) Ur Buprenorphine Scrn (NEGATIVE) Ur Oxycodone Screen (NEGATIVE) Urine Methadone Screen (NEGATIVE) Ur Propoxyphene Screen (NEGATIVE) Ur Barbiturates Screen (NEGATIVE) Ur Tricyclics Screen (NEGATIVE) Ur Phencyclidine Scrn (NEGATIVE) Ur Amphetamine Screen (NEGATIVE) U Methamphetamines Scrn (NEGATIVE) U Benzodiazepines Scrn (NEGATIVE) U Cocaine Metab Screen (NEGATIVE) U Marijuana (THC) Screen (NEGATIVE) Ethyl Alcohol 0.00 (0.00) gm% 08/01/17 08/01/17 08/01/17 Range/Units 14:15 14:15 15:05 WBC (3.98-10.04) K/mm3 RBC (3.98-5.22) M/mm3 Hgb (11.2-15.7) gm/L Hct (34.1-44.9) % MCV (79.4-94.8) fl MCH (25.6-32.2) pg MCHC (32.2-35.5) g/dl RDW Std Deviation (36.4-46.3) fL Plt Count (182-369) K/mm3 MPV (9.4-12.3) fl Neutrophils % (Manual) (40-60) % Band Neutrophils % (0-10) % Lymphocytes % (Manual) (20-40) % Atypical Lymphs % % Monocytes % (Manual) (2-10) % Eosinophils % (Manual) (0.7-5.8) % Basophils % (Manual) (0.1-1.2) Platelet Estimate RBC Morph Comment PT 11.8 (8.0-13.0) SECONDS INR 1.08 APTT 29 (22-36) SECONDS Sodium (136-145) mEq/L Potassium (3.5-5.1) mEq/L Chloride (98-107) mEq/L Carbon Dioxide (21-32) mEq/L Anion Gap (5-15) BUN (7-18) mg/dL Creatinine (0.55-1.02) mg/dL Est Cr Clr Drug Dosing mL/min Estimated GFR (MDRD) (>60) mL/min BUN/Creatinine Ratio (14-18) Glucose (83-115) mg/dL POC Glucose (83-110) mg/dL Lactic Acid 1.9 (0.4-2.0) mmol/L Calcium (8.5-10.1) mg/dL Total Bilirubin (0.2-1.0) mg/dL AST (15-37) U/L ALT (14-59) U/L Alkaline Phosphatase (46-116) U/L CK-MB (CK-2) 7.5 H (0-3.6) ng/ml Troponin I < 0.017 (0.00-0.056) ng/mL C-Reactive Protein (<1.0) mg/dL Total Protein (6.4-8.2) g/dl Albumin (3.4-5.0) g/dl Globulin gm/dL Albumin/Globulin Ratio (1-2) Urine Color (Yellow) Urine Appearance (Clear) Urine pH (5.0-8.0) Ur Specific [place] (1.005-1.030) Urine Protein (Negative) Urine Glucose (UA) (Negative) Urine Ketones (Negative) Urine Occult Blood (Negative) Urine Nitrite (Negative) Urine Bilirubin (Negative) Urine Urobilinogen (0.2-1.0) Ur Leukocyte Esterase (Negative) Urine RBC (0-5) /hpf Urine WBC (0-5) /hpf Ur Epithelial Cells (0-5) /hpf Urine Bacteria (FEW) /hpf Urine Mucus (FEW) /hpf Urine Opiates Screen (NEGATIVE) Ur Buprenorphine Scrn (NEGATIVE) Ur Oxycodone Screen (NEGATIVE) Urine Methadone Screen (NEGATIVE) Ur Propoxyphene Screen (NEGATIVE) Ur Barbiturates Screen (NEGATIVE) Ur Tricyclics Screen (NEGATIVE) Ur Phencyclidine Scrn (NEGATIVE) Ur Amphetamine Screen (NEGATIVE) U Methamphetamines Scrn (NEGATIVE) U Benzodiazepines Scrn (NEGATIVE) U Cocaine Metab Screen (NEGATIVE) U Marijuana (THC) Screen (NEGATIVE) Ethyl Alcohol (0.00) gm% 08/01/17 08/01/17 Range/Units 15:45 15:45 WBC (3.98-10.04) K/mm3 RBC (3.98-5.22) M/mm3 Hgb (11.2-15.7) gm/L Hct (34.1-44.9) % MCV (79.4-94.8) fl MCH (25.6-32.2) pg MCHC (32.2-35.5) g/dl RDW Std Deviation (36.4-46.3) fL Plt Count (182-369) K/mm3 MPV (9.4-12.3) fl Neutrophils % (Manual) (40-60) % Band Neutrophils % (0-10) % Lymphocytes % (Manual) (20-40) % Atypical Lymphs % % Monocytes % (Manual) (2-10) % Eosinophils % (Manual) (0.7-5.8) % Basophils % (Manual) (0.1-1.2) Platelet Estimate RBC Morph Comment PT (8.0-13.0) SECONDS INR APTT (22-36) SECONDS Sodium (136-145) mEq/L Potassium (3.5-5.1) mEq/L Chloride (98-107) mEq/L Carbon Dioxide (21-32) mEq/L Anion Gap (5-15) BUN (7-18) mg/dL Creatinine (0.55-1.02) mg/dL Est Cr Clr Drug Dosing mL/min Estimated GFR (MDRD) (>60) mL/min BUN/Creatinine Ratio (14-18) Glucose (83-115) mg/dL POC Glucose (83-110) mg/dL Lactic Acid (0.4-2.0) mmol/L Calcium (8.5-10.1) mg/dL Total Bilirubin (0.2-1.0) mg/dL AST (15-37) U/L ALT (14-59) U/L Alkaline Phosphatase (46-116) U/L CK-MB (CK-2) (0-3.6) ng/ml Troponin I (0.00-0.056) ng/mL C-Reactive Protein (<1.0) mg/dL Total Protein (6.4-8.2) g/dl Albumin (3.4-5.0) g/dl Globulin gm/dL Albumin/Globulin Ratio (1-2) Urine Color Yellow (Yellow) Urine Appearance Clear (Clear) Urine pH 5.5 (5.0-8.0) Ur Specific [place] 1.025 (1.005-1.030) Urine Protein 1+ H (Negative) Urine Glucose (UA) Negative (Negative) Urine Ketones Trace H (Negative) Urine Occult Blood Negative (Negative) Urine Nitrite Negative (Negative) Urine Bilirubin Negative (Negative) Urine Urobilinogen 0.2 (0.2-1.0) Ur Leukocyte Esterase Negative (Negative) Urine RBC 0-5 (0-5) /hpf Urine WBC 0-5 (0-5) /hpf Ur Epithelial Cells 0-5 (0-5) /hpf Urine Bacteria Moderate H (FEW) /hpf Urine Mucus Moderate H (FEW) /hpf Urine Opiates Screen Negative (NEGATIVE) Ur Buprenorphine Scrn Negative (NEGATIVE) Ur Oxycodone Screen Negative (NEGATIVE) Urine Methadone Screen Negative (NEGATIVE) Ur Propoxyphene Screen Negative (NEGATIVE) Ur Barbiturates Screen Negative (NEGATIVE) Ur Tricyclics Screen Negative (NEGATIVE) Ur Phencyclidine Scrn Negative (NEGATIVE) Ur Amphetamine Screen Negative (NEGATIVE) U Methamphetamines Scrn Negative (NEGATIVE) U Benzodiazepines Scrn Negative (NEGATIVE) U Cocaine Metab Screen Negative (NEGATIVE) U Marijuana (THC) Screen Negative (NEGATIVE) Ethyl Alcohol (0.00) gm% Result Diagrams: 08/01/17 14:15 08/01/17 14:15 EKG INTERPRETATION EKG Date: 08/01/17 Time: 15:35 Rhythm: NSR Rate (Beats/Min): 68 [place]: Normal P-Wave: Present QRS: Normal ST-T: Normal QT: Normal *Q Meaningful Use (ADM) - VTE *Q VTE Criteria *Q: - Stroke *Q Stroke Criteria *Q: - AMI *Q AMI Criteria *Q: Problem List Initiated/Reviewed/Updated: Yes Orders Last 24hrs: Active Orders 24 hr Category Date Time Status Blood Glucose Check, Bedside [RC] ONETIME Care 08/01/17 14:05 Active Cardiac Monitoring [RC] . DIRECTED Care 08/01/17 14:16 Active EKG Documentation Completion [RC] ASDIRECTED Care 08/01/17 14:17 Active Peripheral IV Care [RC] . DIRECTED Care 08/01/17 14:18 Active Chest 2V [CR] Stat Exams 08/01/17 14:16 Taken Foot Comp Min 3V Rt [CR] Stat Exams 08/01/17 14:18 Taken CULTURE BLOOD [BC] Stat Lab 08/01/17 14:17 Ordered CULTURE BLOOD [BC] Stat Lab 08/01/17 14:41 Received CULTURE URINE [RM] Stat Lab 08/01/17 15:45 Received ESR [SEDIMENTATION RATE AUTO] [HEME] Stat Lab 08/01/17 14:15 Received INFLUENZA A+B AG SCREEN [RM] Stat Lab 08/01/17 16:36 Received Sodium Chloride 0.9% [Saline Flush] Med 08/01/17 14:18 Active 10 ml FLUSH ASDIRECTED PRN Blood Culture x2 Reflex Set [OM.PC] Stat Oth 08/01/17 14:16 Ordered Peripheral IV Insertion Adult [OM.PC] Routine Oth 08/01/17 14:18 Ordered EKG 12 Lead [EK] Stat Ther 08/01/17 14:16 Ordered Medication Orders Sodium Chloride (Saline Flush) 10 ml FLUSH ASDIRECTED PRN PRN Reason: Keep Vein Open Last Admin: 08/01/17 14:46 Dose: 10 ml Assessment/Plan Comment:: Assessment/Plan: Acute: AMS/Acute Encephalopathy -Likely from Home Meds: She is on the following Cymbalta 60 mg po BID, Robaxin 500-1000 mg po TID, Fentanyl 50 mcg po Q3D -She had similar presentation in 2014 "confused with lower extremity cellulitis" -UDS negative -Head CT scan showed no acute intra-cranial abnormality -She is no back to her baseline; very reasonable -Will work on adjusting her pain regimen; refer to pain clinic -She needs reversal agent on discharge Diabetic Foot Ulcer/SSTI -Right Lower Extremity -Foot CT Scan report: soft tissues swelling, calcaneal spurs and old bony densities are noted off the medial malleolus. No acute bony abnormality is identified -A1C 6.50 -WBC 21.77; CRP 16 -She runs in the low hundreds on average per patient -IV Levaquin and Vancomycin for pharmacy to dose -Oral Probiotic for supplement DM2 -Well controlled -20 year hx/o diabetes -A1C 6.50 -Accu-check and ISS QID AC and HS -No need for Diabetic Education Chronic: HTN HLD Hypothyroidism Gout Chronic Pain Syndrome-Opioid Dependent Peripheral Neuropathy Plan: Admit to the floor Resume Home Meds Routine AM Labs Blood Cultures UA negative DVT PPx: Lovenox SubQ daily PT/OT consult SW for possible Vibra placement Code status: CPR only
[2017-08-01] MEDS ORDERED: Sodium Chloride 0.9% 1,000 ML IV SCH (17:15)
[2017-08-01] MEDS ORDERED: Methocarbamol 500 MG Tab PO PRN (17:19)
[2017-08-01] MEDS ORDERED: hydrALAZINE 20 MG/ML SDV IVPUSH PRN (17:21)
[2017-08-01] MEDS ORDERED: Metoprolol Tartrate 5 MG/5 ML SDV IVPUSH PRN (17:21)
[2017-08-01] MEDS ORDERED: 50% Dextrose in Water 50 ML Syringe IVPUSH PRN (17:24)
[2017-08-01] MEDS ORDERED: Acetaminophen 325 MG Tab PO ONE (17:30)
[2017-08-01] MEDS ORDERED: Non-Formulary Medication 1 Each (Fentanyl [Fentanyl] 50 MCG) TOP SCH (17:30)
[2017-08-01] MEDS ORDERED: Sodium Chloride 0.9% 100 ML ONE (17:39)
[2017-08-01] MEDS ORDERED: Piperacillin/Tazobactam 4.5 GM in Sodium Chloride 0.9% 100 ML IV ONE ×2 (17:45→22:00)
[2017-08-01] MEDS ORDERED: PREGABALIN 200 MG PO SCH (21:00)
[2017-08-01] MEDS: Pregabalin 25 MG Cap PO SCH (21:56)
[2017-08-01] MEDS: Pregabalin 75 MG Cap PO SCH (21:56)
[2017-08-01] MEDS: Metoprolol Tartrate 25 MG Tab PO SCH (21:57)
[2017-08-01] MEDS: DULoxetine 30 MG Cap PO SCH (22:01)
[2017-08-01] MEDS: Saccharomyces Boulardii (Probiotic) 250 MG Cap PO SCH (22:02)
[2017-08-01] MEDS: Insulin Detemir 100 Units/ML 3 ML Pen SUBCUT SCH (22:34)
[2017-08-01] MEDS: Insulin Aspart 100 Units/ML 3 ML Pen SUBCUT SCH (22:34)
[2017-08-02] MEDS ORDERED: Piperacillin/Tazobactam 4.5 GM in Sodium Chloride 0.9% 100 ML IV SCH (02:00)
[2017-08-02] MEDS: Simvastatin 10 MG Tab PO SCH ×2 (02:47→20:55)
[2017-08-02] MEDS: Piperacillin/Tazobactam 4.5 GM in Sodium Chloride 0.9% 100 ML IV SCH ×4 (04:46→22:34)
[2017-08-02] MEDS: Insulin Aspart 100 Units/ML 3 ML Pen SUBCUT SCH ×4 (08:23→22:44)
[2017-08-02] MEDS: Saccharomyces Boulardii (Probiotic) 250 MG Cap PO SCH ×3 (08:40→20:53)
[2017-08-02] MEDS: Pregabalin 25 MG Cap PO SCH ×3 (08:40→20:54)
[2017-08-02] MEDS: Metoprolol Tartrate 25 MG Tab PO SCH ×2 (08:41→21:10)
--- NOTE | 2017-08-02 08:42 | CR ---
Right foot: Four views of the right foot were obtained. Comparison: No prior foot exam. Plantar spur is seen. Spur noted at the attachment of the Achilles tendon. Distal Achilles tendon calcifications are also incidentally noted. Soft tissue swelling is identified. No focal erosive change is seen. No acute fracture or other bony abnormality is appreciated. Impression: 1. Calcaneal spurs and soft tissue swelling. 2. No acute bony abnormality is identified on right foot study. Diagnostic code #2
--- NOTE | 2017-08-02 08:42 | CR ---
Chest: Two views of the chest were obtained. Comparison: Prior chest x-ray of 07/03/14. Heart size is normal. Tortuous thoracic aorta is seen. Lungs are clear with no acute infiltrates. Electro-stimulating device is noted within the lower thoracic spine. Impression: 1. Electro-stimulating device within the spine. Nothing acute is seen on two-view chest x-ray. Diagnostic code #2
[2017-08-02] MEDS: Allopurinol 100 MG Tab PO SCH (08:43)
[2017-08-02] MEDS: Pregabalin 75 MG Cap PO SCH ×3 (08:43→20:53)
[2017-08-02] MEDS: Levothyroxine 75 MCG Tab PO SCH (08:43)
[2017-08-02] MEDS: DULoxetine 30 MG Cap PO SCH ×2 (08:43→20:54)
[2017-08-02] MEDS: Enoxaparin 40 MG/0.4 ML Syringe SUBCUT SCH (08:44)
[2017-08-02] MEDS: Insulin Detemir 100 Units/ML 3 ML Pen SUBCUT SCH ×2 (08:44→22:38)
[2017-08-02] MEDS: metFORMIN 500 MG Tab PO SCH ×3 (08:44→17:34)
--- NOTE | 2017-08-02 09:45 | PCM.PN ---
- General Info Date of Service: 08/02/17 Admission Dx/Problem (Free Text): Follow Up Subjective Update: Follow Up Functional Status: Reports: Pain Controlled, Tolerating Diet, Urinating. Denies : New Symptoms - Review of Systems General: Denies: Fever, Weakness, Fatigue, Malaise, Chills HEENT: Reports: No Symptoms (Hard of Hearing), Other Pulmonary: Denies: Shortness of Breath Cardiovascular: Denies: Chest Pain Gastrointestinal: Denies: Abdominal Pain, Nausea, Vomiting Genitourinary: Reports: No Symptoms Musculoskeletal: Reports: Back Pain Skin: Reports: Rash Neurological: Denies: Confusion, Pre-Existing Deficit, Difficulty Walking, Weakness, Gait Disturbance Psychiatric: Denies: Depression, Anxiety, Agitation, Hallucinations Systems Review Comment:: No significant overnight or acute issues. She slept pretty good. Her pain is controlled. She has no new complaints. Her morning labs are better. Her vitals are stable. - Patient Data Vitals - Most Recent: Last Vital Signs Temp 36.6 C 08/02/17 07:58 Pulse 61 08/02/17 08:41 Resp 16 08/02/17 07:58 BP 138/59 L 08/02/17 08:41 Pulse Ox 93 L 08/02/17 07:58 Weight - Most Recent: 98.475 kg I&O - Last 24 Hours: Intake & Output 08/01/17 08/02/17 08/02/17 22:59 06:59 14:59 Intake Total 400 Output Total 1000 Balance -600 Lab Results Last 24 Hours: Laboratory Results - last 24 hr 08/01/17 08/01/17 08/02/17 Range/Units 21:39 23:00 06:59 WBC 16.76 H (3.98-10.04) K/mm3 RBC 3.73 L (3.98-5.22) M/mm3 Hgb 11.2 (11.2-15.7) gm/L Hct 33.8 L (34.1-44.9) % MCV 90.6 (79.4-94.8) fl MCH 30.0 (25.6-32.2) pg MCHC 33.1 (32.2-35.5) g/dl RDW Std Deviation 46.6 H (36.4-46.3) fL Plt Count 234 (182-369) K/mm3 MPV 9.9 (9.4-12.3) fl Neut % (Auto) 76.8 H (34.0-71.1) % Lymph % (Auto) 15.0 L (19.3-51.7) % Rich % (Auto) 7.3 (4.7-12.5) % Eos % (Auto) 0.3 L (0.7-5.8) Baso % (Auto) 0.2 (0.1-1.2) % Neut # (Auto) 12.88 H (1.56-6.13) K/mm3 Lymph # (Auto) 2.52 (1.18-3.74) K/mm3 Rich # (Auto) 1.22 H (0.24-0.36) K/mm3 Eos # (Auto) 0.05 (0.04-0.36) K/mm3 Baso # (Auto) 0.03 (0.01-0.08) K/mm3 Manual Slide Review Normal smear Sodium (136-145) mEq/L Potassium (3.5-5.1) mEq/L Chloride (98-107) mEq/L Carbon Dioxide (21-32) mEq/L Anion Gap (5-15) BUN (7-18) mg/dL Creatinine (0.55-1.02) mg/dL Est Cr Clr Drug Dosing mL/min Estimated GFR (MDRD) (>60) mL/min BUN/Creatinine Ratio (14-18) Glucose (83-115) mg/dL POC Glucose 149 H (83-110) mg/dL Uric Acid (2.6-6.0) mg/dL Calcium (8.5-10.1) mg/dL Magnesium (1.8-2.4) mg/dl C-Reactive Protein (<1.0) mg/dL Random Vancomycin ug/mL MRSA (PCR) Negative 08/02/17 08/02/17 Range/Units 06:59 06:59 WBC (3.98-10.04) K/mm3 RBC (3.98-5.22) M/mm3 Hgb (11.2-15.7) gm/L Hct (34.1-44.9) % MCV (79.4-94.8) fl MCH (25.6-32.2) pg MCHC (32.2-35.5) g/dl RDW Std Deviation (36.4-46.3) fL Plt Count (182-369) K/mm3 MPV (9.4-12.3) fl Neut % (Auto) (34.0-71.1) % Lymph % (Auto) (19.3-51.7) % Rich % (Auto) (4.7-12.5) % Eos % (Auto) (0.7-5.8) Baso % (Auto) (0.1-1.2) % Neut # (Auto) (1.56-6.13) K/mm3 Lymph # (Auto) (1.18-3.74) K/mm3 Rich # (Auto) (0.24-0.36) K/mm3 Eos # (Auto) (0.04-0.36) K/mm3 Baso # (Auto) (0.01-0.08) K/mm3 Manual Slide Review Sodium 140 (136-145) mEq/L Potassium 3.7 (3.5-5.1) mEq/L Chloride 104 (98-107) mEq/L Carbon Dioxide 24 (21-32) mEq/L Anion Gap 15.7 H (5-15) BUN 11 (7-18) mg/dL Creatinine 0.9 (0.55-1.02) mg/dL Est Cr Clr Drug Dosing 51.34 mL/min Estimated GFR (MDRD) > 60 (>60) mL/min BUN/Creatinine Ratio 12.2 L (14-18) Glucose 139 H (83-115) mg/dL POC Glucose (83-110) mg/dL Uric Acid 3.6 (2.6-6.0) mg/dL Calcium 8.6 (8.5-10.1) mg/dL Magnesium 1.6 L (1.8-2.4) mg/dl C-Reactive Protein 14.6 H* (<1.0) mg/dL Random Vancomycin 4.1 ug/mL MRSA (PCR) Med Orders - Current: Current Medications Acetaminophen (Tylenol) 650 mg PO Q4H PRN PRN Reason: Pain (Mild 1-3)/fever Hydrocodone Bitart/Acetaminophen ([place] 325-5 Mg) 1 tab PO Q4H PRN PRN Reason: Pain (moderate 4-6) Albuterol/Ipratropium (Duoneb 3.0-0.5 Mg/3 Ml) 3 ml NEB Q4H PRN PRN Reason: Shortness Of Breath/wheezing Allopurinol (Zyloprim) 100 mg PO DAILY [facility] Last Admin: 08/02/17 08:43 Dose: 100 mg Bisacodyl (Dulcolax) 5 mg PO DAILY PRN PRN Reason: Constipation Dextrose/Water (Dextrose 50% In Water) 50 ml IVPUSH ASDIRECTED PRN PRN Reason: Hypoglycemia Docusate Sodium (Colace) 100 mg PO BID PRN PRN Reason: Constipation Duloxetine HCl (Cymbalta) 60 mg PO BID [facility] Last Admin: 08/02/17 08:43 Dose: 60 mg Enoxaparin Sodium (Lovenox) 40 mg SUBCUT DAILY [facility] Last Admin: 08/02/17 08:44 Dose: 40 mg Hydralazine HCl (Apresoline) 20 mg IVPUSH Q4H PRN PRN Reason: Hypertension Hydromorphone HCl (Dilaudid) 0.25 mg IVPUSH Q2H PRN PRN Reason: Pain (severe 7-10) Promethazine HCl 12.5 mg/ (Sodium Chloride) 50.5 mls @ 100 mls/hr IV Q6H PRN PRN Reason: Nausea/Vomiting Sodium Chloride (Normal Saline) 1,000 mls @ 50 mls/hr IV ASDIRECTED [facility] Piperacillin Sod/Tazobactam (Sod 4.5 gm/ Sodium Chloride) 100 mls @ 25 mls/hr IV Q8H [facility] Last Admin: 08/02/17 08:22 Dose: Not Given Vancomycin HCl 1 gm/Vancomycin HCl 500 mg/ Sodium Chloride 500 mls @ 250 mls/ hr IV Q24H [facility] Magnesium Sulfate (Magnesium Sulfate 2 Gm In Water 50 Ml) 50 mls @ 25 mls/hr IV ONETIME ONE Stop: 08/02/17 11:59 Insulin Aspart (Novolog) 0 unit SUBCUT QIDACANDBED [facility] PRN Reason: Protocol Last Admin: 08/02/17 08:23 Dose: Not Given Insulin Detemir (Levemir) 14 unit SUBCUT BID [facility] Last Admin: 08/02/17 08:44 Dose: 14 units Levothyroxine Sodium (Levothyroxine) 75 mcg PO ACBREAKFAST [facility] Last Admin: 08/02/17 08:43 Dose: 75 mcg Lorazepam (Ativan) 0.25 mg IV Q6H PRN PRN Reason: Anxiety Magnesium Sulfate (Pharmacy To Dose - Magnesium Replacement) 1 dose .XX ASDIRECTED [facility] Metformin HCl (Glucophage) 500 mg PO TIDM [facility] Last Admin: 08/02/17 08:44 Dose: 500 mg Methocarbamol (Robaxin) 500 - 1,000 mg PO TID PRN PRN Reason: Spasms Metoprolol Tartrate (Lopressor) 12.5 mg PO BID [facility] Last Admin: 08/02/17 08:41 Dose: 12.5 mg Metoprolol Tartrate (Lopressor) 5 mg IVPUSH Q4H PRN PRN Reason: Tachycardia Non-Formulary Medication (Fentanyl [Fentanyl]) 50 mcg TOP Q3D [facility] Ondansetron HCl (Zofran) 4 mg IV Q6H PRN PRN Reason: Nausea/Vomiting Polyethylene Glycol (Miralax) 17 gm PO DAILY PRN PRN Reason: Constipation Potassium Chloride (Pharmacy To Dose - Potassium Replacement) 1 dose .XX ASDIRECTED [facility] Potassium Chloride (Klor-Con 10) 40 meq PO Q4H [facility] Stop: 08/02/17 14:01 Pregabalin (Lyrica) 50 mg PO TID [facility] Last Admin: 08/02/17 08:40 Dose: 50 mg Pregabalin (Lyrica) 150 mg PO TID [facility] Last Admin: 08/02/17 08:43 Dose: 150 mg Saccharomyces Boulardii (Florastor) 250 mg PO TID [facility] Last Admin: 08/02/17 08:40 Dose: 250 mg Senna/Docusate Sodium (Senna Plus) 1 tab PO BID PRN PRN Reason: Constipation Simvastatin (Zocor) 10 mg PO BEDTIME [facility] Last Admin: 08/02/17 02:47 Dose: Not Given Sodium Chloride (Saline Flush) 10 ml FLUSH ASDIRECTED PRN PRN Reason: Keep Vein Open Last Admin: 08/01/17 14:46 Dose: 10 ml Temazepam (Restoril) 7.5 mg PO BEDTIME PRN PRN Reason: Sleep Vancomycin HCl (Pharmacy To Dose - Vancomycin) 1 dose .XX ASDIRECTED [facility] Discontinued Medications Acetaminophen (Tylenol) 650 mg PO NOW ONE Stop: 08/01/17 17:31 Last Admin: 08/01/17 17:38 Dose: 650 mg Sodium Chloride (Normal Saline) 1,000 mls @ 999 mls/hr IV ONETIME ONE Stop: 08/01/17 15:16 Last Infusion: 08/01/17 16:25 Dose: 999 mls/hr Ceftriaxone Sodium 2 gm/ (Sodium Chloride) 100 mls @ 200 mls/hr IV ONETIME ONE Stop: 08/01/17 16:30 Vancomycin HCl 1 gm/ Sodium (Chloride) 250 mls @ 250 mls/hr IV ONETIME ONE Stop: 08/01/17 17:04 Last Admin: 08/01/17 16:26 Dose: 250 mls/hr Sodium Chloride (Normal Saline) 1,000 mls @ 100 mls/hr IV ONETIME ONE Stop: 08/02/17 03:18 Last Admin: 08/01/17 17:24 Dose: 100 mls/hr Piperacillin Sod/Tazobactam (Sod 4.5 gm/ Sodium Chloride) 100 mls @ 25 mls/hr IV Q8H HELENE Vancomycin HCl 1 gm/Vancomycin HCl 250 mg/ Sodium Chloride 500 mls @ 333.333 mls/hr IV Q24H HELENE Sodium Chloride (Normal Saline) Confirm Administered Dose 100 mls @ as directed .ROUTE .STK-MED ONE Stop: 08/01/17 17:40 Last Admin: 08/01/17 21:42 Dose: Not Given Piperacillin Sod/Tazobactam (Sod 4.5 gm/ Sodium Chloride) 100 mls @ 200 mls/hr IV ONETIME ONE Stop: 08/01/17 22:29 Last Admin: 08/01/17 22:37 Dose: 200 mls/hr Non-Formulary Medication (Pregabalin) 200 mg PO TID HELENE - Exam General: Alert, Oriented, Cooperative, No Acute Distress HEENT: Pupils Equal, Pupils Reactive, EOMI, Mucous Membr. Moist/[place] Neck: Supple, Trachea Midline, No JVD Lungs: Clear to Auscultation, Normal Respiratory Effort Cardiovascular: Regular Rate, Regular Rhythm GI/Abdominal Exam: Normal Bowel Sounds, Soft, Non-Tender, No Organomegaly, No Distention, No Abnormal Bruit, No Mass (Female) Exam: Deferred Back Exam: Normal Inspection, Decreased Range of Motion Extremities: Other (Right Leg: Erythema and Edema Improved; Left Leg- within normal limits) Peripheral Pulses: 2+: Dorsalis Pedis (L), Dorsalis Pedis (R) Skin: Warm, Dry, Intact Wound/Incisions: Erythema Improving Neurological: No New Focal Deficit Psy/Mental Status: Alert, Normal Affect, Normal Mood - Problem List Review Problem List Initiated/Reviewed/Updated: Yes - My Orders Last 24 Hours: My Active Orders 08/01/17 21:00 Pregabalin [Lyrica] 150 mg PO TID Pregabalin [Lyrica] 50 mg PO TID 08/02/17 06:00 Piperacillin/Tazobactam [Zosyn] 4.5 gm Sodium Chloride 0.9% [Normal Saline] 100 ml IV Q8H 08/02/17 10:00 Magnesium Sulfate/Water [Magnesium Sulfate 2 GM in Water 50 ML] 50 ml IV ONETIME Potassium Chloride [Klor-Con 10] 40 meq PO Q4H 08/02/17 12:00 Vancomycin 1 gm Vancomycin 500 mg Sodium Chloride 0.9% [Normal Saline] 500 ml IV Q24H 08/04/17 11:30 VANCOMYCIN TROUGH [CHEM] Routine - Plan Plan:: Assessment/Plan: Acute: Diabetic Foot Ulcer/SSTI -Right Lower Extremity -Foot CT Scan report: soft tissues swelling, calcaneal spurs and old bony densities are noted off the medial malleolus. No acute bony abnormality is identified -A1C 6.50 -WBC 21.77; CRP 16 -She runs in the low hundreds on average per patient -IV Levaquin and Vancomycin for pharmacy to dose -Oral Probiotic for supplement DM2 -BS well controlled -20 year hx/o diabetes -A1C 6.50 -Accu-check and ISS QID AC and HS -No need for Diabetic Education Chronic Pain Syndrome-Opioid Dependent -Cut down fentanyl dose to 25mcg Q3D -Oxycodone 5 mg po Q4H PRN for breakthrough pain -Refer to Dr. Swanson-Pain specialist in [facility] for further management Chronic: HTN HLD Hypothyroidism Gout Peripheral Neuropathy Plan: She is clinically better Routine AM Labs Influenza and UA negative Blood Culture pending DVT PPx: Lovenox SubQ daily Continue PT/OT Code status: CPR only Possibled d/c in AM
[2017-08-02] MEDS ORDERED: Magnesium Sulfate/Water 50 ML IV ONE ×2 (10:00→18:45)
[2017-08-02] MEDS ORDERED: oxyCODONE 5 MG Tab PO PRN (10:58)
[2017-08-02] MEDS: Vancomycin 1 GM, Vancomycin 500 MG in Sodium Chloride 0.9% 500 ML IV SCH (11:51)
[2017-08-02] MEDS: Potassium Chloride 10 MEQ Tab.ER PO SCH ×2 (11:52→14:11)
[2017-08-02] MEDS ORDERED: fentaNYL 25 MCG/HR Transdermal Patch TRDERM SCH (12:00)
[2017-08-03] MEDS: metFORMIN 500 MG Tab PO SCH ×2 (06:18→11:29)
[2017-08-03] MEDS: Levothyroxine 75 MCG Tab PO SCH (06:18)
[2017-08-03] MEDS: Piperacillin/Tazobactam 4.5 GM in Sodium Chloride 0.9% 100 ML IV SCH ×2 (06:19→14:20)
[2017-08-03] MEDS: Insulin Detemir 100 Units/ML 3 ML Pen SUBCUT SCH (08:36)
[2017-08-03] MEDS: Enoxaparin 40 MG/0.4 ML Syringe SUBCUT SCH (08:38)
[2017-08-03] MEDS: Insulin Aspart 100 Units/ML 3 ML Pen SUBCUT SCH ×2 (08:38→11:30)
[2017-08-03] MEDS: Pregabalin 75 MG Cap PO SCH ×2 (08:39→14:10)
[2017-08-03] MEDS: Pregabalin 25 MG Cap PO SCH ×2 (08:39→14:10)
[2017-08-03] MEDS: Metoprolol Tartrate 25 MG Tab PO SCH (08:39)
[2017-08-03] MEDS: DULoxetine 30 MG Cap PO SCH (08:40)
[2017-08-03] MEDS: Allopurinol 100 MG Tab PO SCH (08:40)
[2017-08-03] MEDS ORDERED: Saccharomyces Boulardii (Probiotic) 250 MG Cap PO SCH (09:00)
[2017-08-03] MEDS: Vancomycin 1 GM, Vancomycin 500 MG in Sodium Chloride 0.9% 500 ML IV SCH (11:39)
[2017-08-03 12:42] VITALS: BP 132/72
--- NOTE | 2017-08-03 15:06 | PCM.DCSUM1 ---
Discharge Summary - Hospital Course Brief History: This is a 72 yo elderly white female with past medical hx/o hypertension, hyperlipidemia, peripheral neuropathy, opioid dependence for chronic pain syndrome, and hypothyroidism who was brought into the emergency department for evaluation of acute confusion associated with generalized weakness. Patient reports similar history back in 2013. However upon presentation to the emergency department, the patient was found to be alert awake and oriented 3. - Discharge Data Discharge Date: 08/03/17 Discharge Disposition: Home, Self-Care 01 Condition: Good - Discharge Diagnosis/Problem(s) (1) Cellulitis of foot SNOMED Code(s): 845756679 ICD Code: L03.119 - CELLULITIS OF UNSPECIFIED PART OF LIMB Status: Acute Onset Date: 07/03/14 (2) Altered mental status SNOMED Code(s): 750704064 ICD Code: R41.82 - ALTERED MENTAL STATUS, UNSPECIFIED Status: Resolved Onset Date: 07/03/14 (3) Neuropathy SNOMED Code(s): 351154226 ICD Code: G62.9 - POLYNEUROPATHY, UNSPECIFIED Status: Chronic Onset Date : 07/03/14 (4) Chronic pain SNOMED Code(s): 03656361 ICD Code: G89.29 - OTHER CHRONIC PAIN Status: Chronic Qualifiers: Chronic pain type: chronic pain syndrome Qualified Code(s): G89.4 - Chronic pain syndrome (5) Opioid dependence with current use SNOMED Code(s): 952231100 ICD Code: F11.20 - OPIOID DEPENDENCE, UNCOMPLICATED Status: Chronic - Patient Summary/Data Operative Procedure(s) Performed: None Complications: None Consults: None Labs Pending at D/C: None Recommended Follow-up Testing/Procedures: None Planned Operative Procedure(s) after DC: None Hospital Course: Patient was primarily admitted for medical evaluation of acute altered mental status associated with right lower extremity diabetes foot ulcer. She carried a past history of it in the past with similar presentation. After initial workup to include diagnostic labs and review of her home routine medications, we believed the patient was overly sedated with multiple medications from opioids, muscle relaxant, antidepressant and neuropathic pain meds. Her head CT scan showed no acute intra-cranial abnormality. As for her right lower extremity cellulitis, we felt this was associated to her diabetes. However she improved immediately with intravenous antibiotic treatment. She was discharged immediately with additional course of antibiotic to take, after her blood cultures came back negative for 48 hrs. Her hospital course was uncomplicated. The rest of her chronic medical illness remained stable during this admission. Her chronic pain regimen was adjusted and patient was provided a reversal agent for possible opioid overdose. The patient was advised to follow-up with pain clinic and with her primary care doctor in 1-2 weeks. She was further advised to come back or seek immediate care should her symptoms persist or get worse. Patient expressed understanding and in agreement with the plans as discussed above. All questions were answered. - Patient Instructions Diet: Heart Healthy Diet, Usual Diet as Tolerated, Diabetic Diet Activity: As Tolerated Driving: Do Not Drive Showering/Bathing: May Shower Notify Provider of: Fever, Increased Pain, Nausea and/or Vomiting Other/Special Instructions: - Please take all new medications as directed. - Resume all home new medications except fentanyl. - Continue routine home activity w/o any restrictions. - Recommend you get a diabetic shoes. - Absolutely no barefoot walking! - Keep your appointment with Dr. Swanson once scheduled. - Follow up with your family doctor in 1 week. - Call your doctor for any questions or concerns right after discharge - Discharge Plan Prescriptions/Med Rec: Amoxicillin/Potassium Clav [Augmentin 875-125 Tablet] 1 each PO BID #14 tablet Bisacodyl [Dulcolax] 10 mg RC ASDIRECTED PRN #10 supp.rect PRN Reason: Other fentaNYL [Duragesic] 25 mcg TD Q72H #12 patch.td72 Lactobac Cmb #3/Fos/Pantethine [Probiotic & Acidophilus] 1 each PO BID #14 capsule Naloxone HCl [Narcan] 4 mg NS ASDIRECTED PRN #1 spray PRN Reason: Other oxyCODONE 5 mg PO Q4H PRN #15 tab PRN Reason: Pain Sennosides/Docusate Sodium [Senokot-S Tablet] 1 each PO BID #60 tablet Home Medications: Home Meds Pregabalin [Lyrica] 200 mg PO TID 07/03/14 [History] metFORMIN [Glucophage] 500 mg PO TIDM 07/03/14 [History] Insulin Glarg,Human.Rec.Analog [Lantus] 28 unit SUBCUT QPM 07/04/14 [History] Allopurinol [Zyloprim] 100 mg PO DAILY 08/01/17 [History] DULoxetine [Cymbalta] 60 mg PO BID 08/01/17 [History] Levothyroxine 75 mg PO DAILY 08/01/17 [History] Methocarbamol 500 - 1,000 mg PO TID PRN 08/01/17 [History] Metoprolol Tartrate 12.5 mg PO BID 08/01/17 [History] Simvastatin [Zocor] 10 mg PO BEDTIME 08/01/17 [History] Amoxicillin/Potassium Clav [Augmentin 875-125 Tablet] 1 each PO BID #14 tablet 08/03/17 [Rx] Bisacodyl [Dulcolax] 10 mg RC ASDIRECTED PRN #10 supp.rect 08/03/17 [Rx] Lactobac Cmb #3/Fos/Pantethine [Probiotic & Acidophilus] 1 each PO BID #14 capsule 08/03/17 [Rx] Naloxone HCl [Narcan] 4 mg NS ASDIRECTED PRN #1 spray 08/03/17 [Rx] Sennosides/Docusate Sodium [Senokot-S Tablet] 1 each PO BID #60 tablet 08/03/17 [Rx] fentaNYL [Duragesic] 25 mcg TD Q72H #12 patch.td72 08/03/17 [Rx] oxyCODONE 5 mg PO Q4H PRN #15 tab 08/03/17 [Rx] Referrals: Alejandro Swanson MD [Physician] - (Please schedule appointment with Dr Swanson at [facility] pain clinic on discharge. Spoke with Dr Swanson staff and per their request sent all clinicals and they will call patient with time and date of appointment. Dr Swanson [phone] fax [phone]) Vikash Cortez MD [Primary Care Provider] - 08/19/17 3:45 pm (Please follow up with Dr. Dawkins on Aug.19 at 1545. ) - Discharge Summary/Plan Comment DC Time >30 min.: Yes (45 mins) Discharge Summary/Plan Comment: Discharge to Home - General Info Date of Service: 08/03/17 Admission Dx/Problem (Free Text: Follow Up Subjective Update: Follow Up Functional Status: Reports: Pain Controlled, Tolerating Diet, Ambulating, Urinating. Denies: New Symptoms - Review of Systems General: Denies: Fever, Weakness, Fatigue, Malaise, Chills HEENT: Reports: No Symptoms Pulmonary: Denies: Shortness of Breath Cardiovascular: Denies: Chest Pain Gastrointestinal: Denies: Abdominal Pain, Nausea, Vomiting Genitourinary: Reports: No Symptoms Musculoskeletal: Reports: No Symptoms Skin: Denies: Rash Neurological: Denies: Confusion, Difficulty Walking, Weakness, Gait Disturbance Psychiatric: Denies: Depression, Anxiety, Agitation, Hallucinations Systems Review Comment: No significant overnight or acute issues. She had a pretty good night. Her pain is controlled. She has no new complaints. - Patient Data Vitals - Most Recent: Last Vital Signs Temp 36.8 C 08/03/17 12:04 Pulse 48 L 08/03/17 12:04 Resp 16 08/03/17 12:04 BP 132/72 08/03/17 12:04 Pulse Ox 100 08/03/17 12:04 Weight - Most Recent: 98.928 kg I&O - Last 24 hours: Intake & Output 08/03/17 08/03/17 08/03/17 06:59 14:59 22:59 Intake Total 1350 180 Output Total 1250 Balance 100 180 Lab Results - Last 24 hrs: Laboratory Results - last 24 hr 08/02/17 08/02/17 08/02/17 Range/Units 06:18 10:44 16:39 WBC (3.98-10.04) K/mm3 RBC (3.98-5.22) M/mm3 Hgb (11.2-15.7) gm/L Hct (34.1-44.9) % MCV (79.4-94.8) fl MCH (25.6-32.2) pg MCHC (32.2-35.5) g/dl RDW Std Deviation (36.4-46.3) fL Plt Count (182-369) K/mm3 MPV (9.4-12.3) fl Neut % (Auto) (34.0-71.1) % Lymph % (Auto) (19.3-51.7) % [place] % (Auto) (4.7-12.5) % Eos % (Auto) (0.7-5.8) Baso % (Auto) (0.1-1.2) % Neut # (Auto) (1.56-6.13) K/mm3 Lymph # (Auto) (1.18-3.74) K/mm3 [place] # (Auto) (0.24-0.36) K/mm3 Eos # (Auto) (0.04-0.36) K/mm3 Baso # (Auto) (0.01-0.08) K/mm3 Sodium (136-145) mEq/L Potassium (3.5-5.1) mEq/L Chloride (98-107) mEq/L Carbon Dioxide (21-32) mEq/L Anion Gap (5-15) BUN (7-18) mg/dL Creatinine (0.55-1.02) mg/dL Est Cr Clr Drug Dosing mL/min Estimated GFR (MDRD) (>60) mL/min BUN/Creatinine Ratio (14-18) Glucose (83-115) mg/dL POC Glucose 128 H 204 H 100 (83-110) mg/dL Calcium (8.5-10.1) mg/dL Magnesium (1.8-2.4) mg/dl C-Reactive Protein (<1.0) mg/dL 08/02/17 08/03/17 08/03/17 Range/Units 22:44 05:48 05:48 WBC 10.67 H (3.98-10.04) K/mm3 RBC 3.84 L (3.98-5.22) M/mm3 Hgb 11.3 (11.2-15.7) gm/L Hct 35.1 (34.1-44.9) % MCV 91.4 (79.4-94.8) fl MCH 29.4 (25.6-32.2) pg MCHC 32.2 (32.2-35.5) g/dl RDW Std Deviation 47.8 H (36.4-46.3) fL Plt Count 253 (182-369) K/mm3 MPV 10.6 (9.4-12.3) fl Neut % (Auto) 53.1 (34.0-71.1) % Lymph % (Auto) 33.2 (19.3-51.7) % [place] % (Auto) 8.4 (4.7-12.5) % Eos % (Auto) 4.6 (0.7-5.8) Baso % (Auto) 0.4 (0.1-1.2) % Neut # (Auto) 5.67 (1.56-6.13) K/mm3 Lymph # (Auto) 3.54 (1.18-3.74) K/mm3 [place] # (Auto) 0.90 H (0.24-0.36) K/mm3 Eos # (Auto) 0.49 H (0.04-0.36) K/mm3 Baso # (Auto) 0.04 (0.01-0.08) K/mm3 Sodium 144 (136-145) mEq/L Potassium 4.2 (3.5-5.1) mEq/L Chloride 109 H (98-107) mEq/L Carbon Dioxide 27 (21-32) mEq/L Anion Gap 12.2 (5-15) BUN 13 (7-18) mg/dL Creatinine 0.9 (0.55-1.02) mg/dL Est Cr Clr Drug Dosing 51.34 mL/min Estimated GFR (MDRD) > 60 (>60) mL/min BUN/Creatinine Ratio 14.4 (14-18) Glucose 93 (83-115) mg/dL POC Glucose 104 (83-110) mg/dL Calcium 8.9 (8.5-10.1) mg/dL Magnesium 2.3 (1.8-2.4) mg/dl C-Reactive Protein 8.3 H* (<1.0) mg/dL 08/03/17 08/03/17 Range/Units 06:14 10:55 WBC (3.98-10.04) K/mm3 RBC (3.98-5.22) M/mm3 Hgb (11.2-15.7) gm/L Hct (34.1-44.9) % MCV (79.4-94.8) fl MCH (25.6-32.2) pg MCHC (32.2-35.5) g/dl RDW Std Deviation (36.4-46.3) fL Plt Count (182-369) K/mm3 MPV (9.4-12.3) fl Neut % (Auto) (34.0-71.1) % Lymph % (Auto) (19.3-51.7) % [place] % (Auto) (4.7-12.5) % Eos % (Auto) (0.7-5.8) Baso % (Auto) (0.1-1.2) % Neut # (Auto) (1.56-6.13) K/mm3 Lymph # (Auto) (1.18-3.74) K/mm3 [place] # (Auto) (0.24-0.36) K/mm3 Eos # (Auto) (0.04-0.36) K/mm3 Baso # (Auto) (0.01-0.08) K/mm3 Sodium (136-145) mEq/L Potassium (3.5-5.1) mEq/L Chloride (98-107) mEq/L Carbon Dioxide (21-32) mEq/L Anion Gap (5-15) BUN (7-18) mg/dL Creatinine (0.55-1.02) mg/dL Est Cr Clr Drug Dosing mL/min Estimated GFR (MDRD) (>60) mL/min BUN/Creatinine Ratio (14-18) Glucose (83-115) mg/dL POC Glucose 95 100 (83-110) mg/dL Calcium (8.5-10.1) mg/dL Magnesium (1.8-2.4) mg/dl C-Reactive Protein (<1.0) mg/dL Med Orders - Current: Current Medications Acetaminophen (Tylenol) 650 mg PO Q4H PRN PRN Reason: Pain (Mild 1-3)/fever Hydrocodone Bitart/Acetaminophen ([place] 325-5 Mg) 1 tab PO Q4H PRN PRN Reason: Pain (moderate 4-6) Albuterol/Ipratropium (Duoneb 3.0-0.5 Mg/3 Ml) 3 ml NEB Q4H PRN PRN Reason: Shortness Of Breath/wheezing Allopurinol (Zyloprim) 100 mg PO DAILY [facility] Last Admin: 08/03/17 08:40 Dose: 100 mg Bisacodyl (Dulcolax) 5 mg PO DAILY PRN PRN Reason: Constipation Dextrose/Water (Dextrose 50% In Water) 50 ml IVPUSH ASDIRECTED PRN PRN Reason: Hypoglycemia Docusate Sodium (Colace) 100 mg PO BID PRN PRN Reason: Constipation Duloxetine HCl (Cymbalta) 60 mg PO BID [facility] Last Admin: 08/03/17 08:40 Dose: 60 mg Enoxaparin Sodium (Lovenox) 40 mg SUBCUT DAILY [facility] Last Admin: 08/03/17 08:38 Dose: 40 mg Fentanyl (Duragesic) 25 mcg TRDERM Q72H [facility] Last Admin: 08/02/17 12:24 Dose: 25 mcg Hydralazine HCl (Apresoline) 20 mg IVPUSH Q4H PRN PRN Reason: Hypertension Last Admin: 08/02/17 21:09 Dose: 20 mg Hydromorphone HCl (Dilaudid) 0.25 mg IVPUSH Q2H PRN PRN Reason: Pain (severe 7-10) Promethazine HCl 12.5 mg/ (Sodium Chloride) 50.5 mls @ 100 mls/hr IV Q6H PRN PRN Reason: Nausea/Vomiting Piperacillin Sod/Tazobactam (Sod 4.5 gm/ Sodium Chloride) 100 mls @ 25 mls/hr IV Q8H [facility] Last Admin: 08/03/17 14:20 Dose: 25 mls/hr Vancomycin HCl 1 gm/Vancomycin HCl 500 mg/ Sodium Chloride 500 mls @ 250 mls/ hr IV Q24H [facility] Last Admin: 08/03/17 11:39 Dose: 250 mls/hr Insulin Aspart (Novolog) 0 unit SUBCUT QIDACANDBED [facility] PRN Reason: Protocol Last Admin: 08/03/17 11:30 Dose: Not Given Insulin Detemir (Levemir) 14 unit SUBCUT BID [facility] Last Admin: 08/03/17 08:36 Dose: 14 units Levothyroxine Sodium (Levothyroxine) 75 mcg PO ACBREAKFAST [facility] Last Admin: 08/03/17 06:18 Dose: 75 mcg Lorazepam (Ativan) 0.25 mg IV Q6H PRN PRN Reason: Anxiety Magnesium Sulfate (Pharmacy To Dose - Magnesium Replacement) 1 dose .XX ASDIRECTED [facility] Metformin HCl (Glucophage) 500 mg PO TIDM [facility] Last Admin: 08/03/17 11:29 Dose: 500 mg Methocarbamol (Robaxin) 500 - 1,000 mg PO TID PRN PRN Reason: Spasms Metoprolol Tartrate (Lopressor) 12.5 mg PO BID [facility] Last Admin: 08/03/17 08:39 Dose: 12.5 mg Metoprolol Tartrate (Lopressor) 5 mg IVPUSH Q4H PRN PRN Reason: Tachycardia Miscellaneous Information (Remove Patch) 0 ea TRDERM Q72H [facility] Last Admin: 08/02/17 12:29 Dose: 1 ea Ondansetron HCl (Zofran) 4 mg IV Q6H PRN PRN Reason: Nausea/Vomiting Oxycodone HCl (Oxycodone) 5 mg PO Q4H PRN PRN Reason: Pain Polyethylene Glycol (Miralax) 17 gm PO DAILY PRN PRN Reason: Constipation Potassium Chloride (Pharmacy To Dose - Potassium Replacement) 1 dose .XX ASDIRECTED [facility] Pregabalin (Lyrica) 50 mg PO TID [facility] Last Admin: 08/03/17 14:10 Dose: 50 mg Pregabalin (Lyrica) 150 mg PO TID [facility] Last Admin: 08/03/17 14:10 Dose: 150 mg Saccharomyces Boulardii (Florastor) 250 mg PO BID [facility] Last Admin: 08/03/17 08:38 Dose: 250 mg Senna/Docusate Sodium (Senna Plus) 1 tab PO BID PRN PRN Reason: Constipation Simvastatin (Zocor) 10 mg PO BEDTIME [facility] Last Admin: 08/02/17 20:55 Dose: 10 mg Sodium Chloride (Saline Flush) 10 ml FLUSH ASDIRECTED PRN PRN Reason: Keep Vein Open Last Admin: 08/01/17 14:46 Dose: 10 ml Temazepam (Restoril) 7.5 mg PO BEDTIME PRN PRN Reason: Sleep Vancomycin HCl (Pharmacy To Dose - Vancomycin) 1 dose .XX ASDIRECTED [facility] Discontinued Medications Acetaminophen (Tylenol) 650 mg PO NOW ONE Stop: 08/01/17 17:31 Last Admin: 08/01/17 17:38 Dose: 650 mg Sodium Chloride (Normal Saline) 1,000 mls @ 999 mls/hr IV ONETIME ONE Stop: 08/01/17 15:16 Last Infusion: 08/01/17 16:25 Dose: 999 mls/hr Ceftriaxone Sodium 2 gm/ (Sodium Chloride) 100 mls @ 200 mls/hr IV ONETIME ONE Stop: 08/01/17 16:30 Last Admin: 08/02/17 13:29 Dose: Not Given Vancomycin HCl 1 gm/ Sodium (Chloride) 250 mls @ 250 mls/hr IV ONETIME ONE Stop: 08/01/17 17:04 Last Admin: 08/01/17 16:26 Dose: 250 mls/hr Sodium Chloride (Normal Saline) 1,000 mls @ 100 mls/hr IV ONETIME ONE Stop: 08/02/17 03:18 Last Admin: 08/01/17 17:24 Dose: 100 mls/hr Sodium Chloride (Normal Saline) 1,000 mls @ 50 mls/hr IV ASDIRECTED [facility] Piperacillin Sod/Tazobactam (Sod 4.5 gm/ Sodium Chloride) 100 mls @ 25 mls/hr IV Q8H HELENE Vancomycin HCl 1 gm/Vancomycin HCl 250 mg/ Sodium Chloride 500 mls @ 333.333 mls/hr IV Q24H [facility] Sodium Chloride (Normal Saline) Confirm Administered Dose 100 mls @ as directed .ROUTE .STK-MED ONE Stop: 08/01/17 17:40 Last Admin: 08/01/17 21:42 Dose: Not Given Piperacillin Sod/Tazobactam (Sod 4.5 gm/ Sodium Chloride) 100 mls @ 200 mls/hr IV ONETIME ONE Stop: 08/01/17 22:29 Last Admin: 08/01/17 22:37 Dose: 200 mls/hr Magnesium Sulfate (Magnesium Sulfate 2 Gm In Water 50 Ml) 50 mls @ 25 mls/hr IV ONETIME ONE Stop: 08/02/17 11:59 Last Admin: 08/02/17 18:38 Dose: Not Given Magnesium Sulfate (Magnesium Sulfate 2 Gm In Water 50 Ml) 50 mls @ 25 mls/hr IV ONETIME ONE Stop: 08/02/17 20:44 Last Admin: 08/02/17 18:42 Dose: 25 mls/hr Non-Formulary Medication (Fentanyl [Fentanyl]) 50 mcg TOP Q3D [facility] Last Admin: 08/02/17 13:30 Dose: Not Given Non-Formulary Medication (Pregabalin) 200 mg PO TID [facility] Potassium Chloride (Klor-Con 10) 40 meq PO Q4H [facility] Stop: 08/02/17 14:01 Last Admin: 08/02/17 14:11 Dose: 40 meq Saccharomyces Boulardii (Florastor) 250 mg PO TID [facility] Last Admin: 08/02/17 20:53 Dose: 250 mg - Exam General: Reports: Alert, Oriented, Cooperative, No Acute Distress HEENT: Reports: Pupils Equal, Pupils Reactive, EOMI, Mucous Membr. Moist/[place] Neck: Reports: Supple, Trachea Midline, No JVD Lungs: Reports: Clear to Auscultation, Normal Respiratory Effort Cardiovascular: Reports: Regular Rate, Regular Rhythm GI/Abdominal Exam: Normal Bowel Sounds, Soft, Non-Tender, No Organomegaly, No Distention, No Abnormal Bruit (Female) Exam: Deferred Rectal (Female) Exam: Deferred Back Exam: Reports: Normal Inspection, Decreased Range of Motion Extremities: Normal Inspection (left leg), Normal Range of Motion (left leg), Non-Tender (left leg), No Pedal Edema (left leg), Normal Capillary Refill (left leg), Pedal Edema (right leg but better), Increased Warmth. No: Leg Pain Skin: Reports: Warm, Dry, Intact Wound/Incisions: Reports: Erythema Improving (right leg) Neurological: Reports: No New Focal Deficit Psy/Mental Status: Reports: Alert, Normal Affect, Normal Mood *Q Meaningful Use (DIS) - VTE *Q VTE Criteria *Q: - Stroke *Q Stroke Criteria *Q: - AMI *Q AMI Criteria *Q:
== END 2017-08-03 16:36 | disposition home or self-care (01) | DRG 948 ==
LOC: JD.ED 13:46 → UNDOADMIN 17:27 → JD.MS 17:27 → UNDODISIN 08-03 16:36
PROVIDERS: ADMIT Internal Medicine; ATTEND Internal Medicine
DX: R41.82 Altered mental status, unspecified (principal); L03.115 Cellulitis of right lower limb; F11.20 Opioid dependence, uncomplicated; R53.1 Weakness; I10 Essential (primary) hypertension; E78.5 Hyperlipidemia, unspecified; E11.42 Type 2 diabetes mellitus with diabetic polyneuropathy; E11.621 Type 2 diabetes mellitus with foot ulcer; L97.519 Non-pressure chronic ulcer of other part of right foot with unspecified severity; G89.4 Chronic pain syndrome; E03.9 Hypothyroidism, unspecified; H54.7 Unspecified visual loss; E78.00 Pure hypercholesterolemia, unspecified; M10.9 Gout, unspecified; Z79.84 Long term (current) use of oral hypoglycemic drugs; Z79.4 Long term (current) use of insulin; Z79.899 Other long term (current) drug therapy
CPT/HCPCS: 36415; 70450; 71046; 73630; 73700; 80053; 80306; 81001; 82553; 82962; 83036; 83605; 84484; 85025; 85610; 85652; 85730; 86140; 87040 ×2; 87086; 87804 ×2; 93005; 96361; 96365; 99285; G0480; J3370; J7040 ×2; J7050 ×2; P9612; 80048; 80202; 83735; 84550; 87641; 93010; 97161-GP; 97165-GO; 97530-GO; 99284; A9270-GY; J0360; J1650; J1815-GY; J2543; J3475; J7030

== ENCOUNTER 2019-04-03 18:07 | Inpatient (IN) | payer MEDICARE, BC ==
[2019-04-03] MEDS ORDERED: Sodium Chloride 0.9% 10 ML Syringe FLUSH PRN (18:19)
[2019-04-03] MEDS ORDERED: Sodium Chloride 0.9% 1,000 ML IV SCH ×2 (18:30→19:15)
--- NOTE | 2019-04-03 18:45 | CT ---
Head CT Technique: Multiple axial sections through the brain were obtained. Intravenous contrast was not utilized. Comparison: No prior intracranial imaging. Findings: Ventricles along with basal cisterns and sulci over the convexities appear within normal limits for the patient's age. No abnormal parenchymal densities are seen. No evidence of intracranial hemorrhage. No midline shift or mass effect is seen. Bone window settings were reviewed which show nothing acute within the visualized mastoid sinuses or visualized paranasal sinuses. No acute calvarial abnormality is appreciated. Impression: 1. Nothing acute is appreciated on noncontrast head CT exam. If patient has persistent symptoms, MRI could then be considered. Diagnostic code #2
--- NOTE | 2019-04-03 19:03 | EDM.PDOC ---
<Eduardo Sandoval Juanis - Last Filed: 04/03/19 20:05> ED HPI GENERAL MEDICAL PROBLEM - General Chief Complaint: Neuro Symptoms/Deficits Stated Complaint: [facility] Time Seen by Provider: 04/03/19 18:16 Source of Information: Reports: EMS, Family (), RN Notes Reviewed - History of Present Illness INITIAL COMMENTS - FREE TEXT/NARRATIVE: 74 rolled lady has been brought in by [facility] for altered mental status. Her states that she was fine this past morning at about 9:00. At point she was walking talking with no unusual symptoms. He states she then laid down for a nap and did not wake up. He "Suresh for supper he was able to arouse her but she could not speak in a normal fashion. At that point he called EMS which was just a short time ago. This was called as a stroke alert due to her speech difficulty. Last known time a wellness about 9 hours ago. She does have history of diabetes on insulin. Her states her blood sugars been running okay. According to her she does not have history of hypertension, heart disease or stroke. He states she has been feeling fine with no recent vomiting diarrhea cough fever or other unusual symptoms up until this evening. - Related Data Allergies Allergy/AdvReac Type Severity Reaction Status Date / Time No Known Allergies Allergy Verified 04/04/19 01:57 Home Meds: Home Meds Pregabalin [Lyrica] 200 mg PO TID 07/03/14 [History] metFORMIN [Glucophage] 1,500 mg PO DAILY 07/03/14 [History] Insulin Glarg,Human.Rec.Analog [Lantus] 28 unit SUBCUT QPM 07/04/14 [History] Allopurinol [Zyloprim] 100 mg PO DAILY 08/01/17 [History] Levothyroxine 75 mg PO DAILY 08/01/17 [History] Metoprolol Tartrate 12.5 mg PO BID 08/01/17 [History] Simvastatin [Zocor] 10 mg PO BEDTIME 08/01/17 [History] Folic Acid 0.8 mg PO DAILY 04/03/19 [History] Garlic [Garlic Oil] 1,000 mg PO DAILY 04/03/19 [History] DULoxetine [Cymbalta] 60 mg PO DAILY 04/04/19 [History] fentaNYL [Duragesic] 50 mcg TRDERM ASDIRECTED 04/04/19 [History] Past Medical History HEENT History: Reports: Impaired Vision Cardiovascular History: Reports: High Cholesterol, Hypertension Genitourinary History: Reports: Renal Calculus Musculoskeletal History: Reports: Gout Neurological History: Reports: Neuropathy, Peripheral Psychiatric History: Reports: Depression Endocrine/Metabolic History: Reports: Diabetes, Type II, Hypothyroidism Hematologic History: Reports: None - Infectious Disease History Infectious Disease History: Reports: Chicken Pox, Measles - Past Surgical History HEENT Surgical History: Reports: Cataract Surgery, Oral Surgery GI Surgical History: Reports: Appendectomy Female Surgical History: Reports: Hysterectomy Musculoskeletal Surgical History: Reports: Other (See Below) Other Musculoskeletal Surgeries/Procedures:: left ankle surgery Social & Family History - Family History Family Medical History: Noncontributory - Tobacco Use Smoking Status *Q: Never Smoker - Caffeine Use Caffeine Use: Reports: Coffee - Recreational Drug Use Recreational Drug Use: No ED ROS GENERAL - Review of Systems Review Of Systems: Unable To Obtain (Unable obtain ROS from patient, what information I am getting is from her ) Constitutional: Reports: Fever (Patient does have fever on arrival to ED but had not been aware of prior fever at home) HEENT: Reports: No Symptoms Respiratory: Denies: Shortness of Breath, Cough Cardiovascular: Denies: Chest Pain GI/Abdominal: Denies: Abdominal Pain, Diarrhea, Vomiting Neurological: Reports: Trouble Speaking ED EXAM, NEURO - Physical Exam Exam: See Below General Appearance: Other (Patient is awake on arrival to ED but speech is very slow and somewhat limited. She can tell me her name but is not able to tell me where she is at) Eye Exam: Bilateral Eye: PERRL Throat/Mouth: Other (Oral mucosa very dry) Neck: Supple Respiratory/Chest: No Respiratory Distress, Lungs Clear, Normal Breath Sounds Cardiovascular: Regular Rate, Rhythm GI/Abdominal: Soft, Non-Tender Neurological: Other (Patient is awake but very slow to respond verbally to questions, ) Course - Vital Signs Last Recorded V/S: Last Vital Signs Temp 36.5 C 04/04/19 04:00 Pulse 64 04/04/19 04:00 Resp 20 04/04/19 04:00 BP 127/57 L 04/04/19 04:00 Pulse Ox 100 04/04/19 04:00 - Orders/Labs/Meds Orders: Active Orders 24 hr Category Date Time Status Patient Status [ADT] Routine ADT 04/04/19 00:43 Active Antiembolic Devices [RC] PER UNIT ROUTINE Care 04/03/19 23:14 Active Blood Glucose Check, Bedside [RC] QIDACANDBED Care 04/03/19 23:17 Active Height and Weight [RC] 0400 Care 04/03/19 23:10 Active Intake and Output [RC] 0400,1600 Care 04/03/19 23:13 Active Oxygen Therapy [RC] PRN Care 04/03/19 23:10 Active POC Glucose [Blood Glucose Check, Bedside] [RC] ONETIME Care 04/03/19 18:19 Active RT Aerosol Therapy [RC] ASDIRECTED Care 04/03/19 23:14 Active Up With Assistance [RC] 1600 Care 04/03/19 23:10 Active Up ad Sammie [RC] 1600 Care 04/03/19 23:10 Active VTE/DVT Education [RC] 1600 Care 04/03/19 23:10 Active Vital Signs [RC] Q4HR Care 04/03/19 23:10 Active Consult to Case Management/Shift Coordinator [CONS] Cons 04/03/19 23:10 Active Routine Consult to Primary Care Sales Representative [CONS] Routine Cons 04/03/19 23:10 Active Consult to Spiritual Care [CONS] Routine Cons 04/03/19 23:10 Active OT Evaluation and Treatment [CONS] Routine Cons 04/03/19 23:10 Active PT Evaluation and Treatment [CONS] Routine Cons 04/03/19 23:10 Active Heart Healthy Diet [DIET] Diet 04/04/19 Breakfast Active Chest 1V Frontal [CR] Stat Exams 04/03/19 18:18 Taken BASIC METABOLIC PANEL,BMP [CHEM] AM Lab 04/04/19 04:55 Received BASIC METABOLIC PANEL,BMP [CHEM] AM Lab 04/05/19 05:11 Ordered BASIC METABOLIC PANEL,BMP [CHEM] AM Lab 04/06/19 05:11 Ordered BASIC METABOLIC PANEL,BMP [CHEM] AM Lab 04/07/19 05:11 Ordered BASIC METABOLIC PANEL,BMP [CHEM] AM Lab 04/08/19 05:11 Ordered C-REACTIVE PROTEIN [CHEM] AM Lab 04/04/19 04:55 Received C-REACTIVE PROTEIN [CHEM] AM Lab 04/05/19 05:11 Ordered C-REACTIVE PROTEIN [CHEM] AM Lab 04/06/19 05:11 Ordered C-REACTIVE PROTEIN [CHEM] AM Lab 04/07/19 05:11 Ordered C-REACTIVE PROTEIN [CHEM] AM Lab 04/08/19 05:11 Ordered CBC WITH AUTO DIFF [HEME] AM Lab 04/04/19 04:55 Results CBC WITH AUTO DIFF [HEME] AM Lab 04/05/19 05:11 Ordered CBC WITH AUTO DIFF [HEME] AM Lab 04/06/19 05:11 Ordered CBC WITH AUTO DIFF [HEME] AM Lab 04/07/19 05:11 Ordered CBC WITH AUTO DIFF [HEME] AM Lab 04/08/19 05:11 Ordered CULTURE BLOOD [BC] Stat Lab 04/03/19 18:46 Received CULTURE BLOOD [BC] Stat Lab 04/03/19 19:20 Received CULTURE URINE [RM] Stat Lab 04/03/19 18:55 Received MAGNESIUM [CHEM] AM Lab 04/04/19 04:55 Received MAGNESIUM [CHEM] AM Lab 04/05/19 05:11 Ordered MAGNESIUM [CHEM] AM Lab 04/06/19 05:11 Ordered MAGNESIUM [CHEM] AM Lab 04/07/19 05:11 Ordered MAGNESIUM [CHEM] AM Lab 04/08/19 05:11 Ordered Albuterol/Ipratropium [DuoNeb 3.0-0.5 MG/3 ML] Med 04/03/19 23:10 Active 3 ml NEB Q4H PRN Bisacodyl [Dulcolax] Med 04/03/19 23:10 Active 5 mg PO DAILY PRN Dextrose 50% in Water Med 04/03/19 23:17 Active 50 ml IVPUSH ASDIRECTED PRN Docusate Sodium [Colace] Med 04/03/19 23:10 Active 100 mg PO BID PRN Docusate Sodium/Sennosides [Senna Plus] Med 04/03/19 23:10 Active 1 tab PO BID PRN Insulin Lispro [HumaLOG] Med 04/04/19 07:00 Active See Protocol SUBCUT QIDACANDBED Ondansetron [Zofran] Med 04/03/19 23:10 Active 4 mg IV Q6H PRN Promethazine [Phenergan] 6.25 mg Med 04/03/19 23:10 Active Sodium Chloride 0.9% [Normal Saline] 50 ml IV Q6H Sodium Chloride 0.9% [Normal Saline] 1,000 ml Med 04/03/19 23:30 Active IV ASDIRECTED Sodium Chloride 0.9% [Normal Saline] 1,000 ml Med 04/03/19 18:30 Active IV ONETIME Sodium Chloride 0.9% [Normal Saline] 1,000 ml Med 04/03/19 19:15 Active IV ONETIME Sodium Chloride 0.9% [Saline Flush] Med 04/03/19 18:19 Active 10 ml FLUSH ASDIRECTED PRN Peripheral IV Insertion Adult [OM.PC] Stat Ot 04/03/19 18:19 Ordered Sequential Compression Device [OM.PC] Per Unit Routine Oth 04/03/19 23:13 Ordered Resuscitation Status Routine Resus Stat 04/03/19 23:10 Ordered Medication Orders Albuterol/Ipratropium (Duoneb 3.0-0.5 Mg/3 Ml) 3 ml NEB Q4H PRN PRN Reason: Shortness Of Breath/wheezing Bisacodyl (Dulcolax) 5 mg PO DAILY PRN PRN Reason: Constipation Dextrose/Water (Dextrose 50% In Water) 50 ml IVPUSH ASDIRECTED PRN PRN Reason: Hypoglycemia Docusate Sodium (Colace) 100 mg PO BID PRN PRN Reason: Constipation Sodium Chloride (Normal Saline) 1,000 mls @ 999 mls/hr IV ONETIME [facility] Last Admin: 04/03/19 19:15 Dose: 999 mls/hr Sodium Chloride (Normal Saline) 1,000 mls @ 999 mls/hr IV ONETIME [facility] Promethazine HCl 6.25 mg/ (Sodium Chloride) 50.25 mls @ 100 mls/hr IV Q6H PRN PRN Reason: Nausea/Vomiting Sodium Chloride (Normal Saline) 1,000 mls @ 100 mls/hr IV ASDIRECTED [facility] Last Admin: 04/04/19 01:29 Dose: 100 mls/hr Insulin Human Lispro (Humalog) 0 unit SUBCUT QIDACANDBED [facility]; Protocol Ondansetron HCl (Zofran) 4 mg IV Q6H PRN PRN Reason: Nausea/Vomiting Senna/Docusate Sodium (Senna Plus) 1 tab PO BID PRN PRN Reason: Constipation Sodium Chloride (Saline Flush) 10 ml FLUSH ASDIRECTED PRN PRN Reason: Keep Vein Open Last Admin: 04/03/19 19:23 Dose: 10 ml Labs: Laboratory Tests 04/03/19 04/03/19 04/03/19 Range/Units 18:30 18:46 18:46 WBC 24.44 H (3.98-10.04) K/mm3 RBC 4.46 (3.98-5.22) M/mm3 Hgb 13.2 D (11.2-15.7) gm/dl Hct 40.8 (34.1-44.9) % MCV 91.5 (79.4-94.8) fl MCH 29.6 (25.6-32.2) pg MCHC 32.4 (32.2-35.5) g/dl RDW Std Deviation 45.7 (36.4-46.3) fL Plt Count 255 (182-369) K/mm3 MPV 10.5 (9.4-12.3) fl Neutrophils % (Manual) 86 H (40-60) % Band Neutrophils % 0 (0-10) % Lymphocytes % (Manual) 11 L (20-40) % Atypical Lymphs % 0 % Monocytes % (Manual) 3 (2-10) % Eosinophils % (Manual) 0 L (0.7-5.8) % Basophils % (Manual) 0 L (0.1-1.2) Platelet Estimate Adequate RBC Morph Comment Normal Sodium 137 (136-145) mEq/L Potassium 4.9 (3.5-5.1) mEq/L Chloride 102 (98-107) mEq/L Carbon Dioxide 27 (21-32) mEq/L Anion Gap 12.9 (5-15) BUN 16 (7-18) mg/dL Creatinine 1.0 (0.55-1.02) mg/dL Est Cr Clr Drug Dosing 48.28 mL/min Estimated GFR (MDRD) 54 (>60) mL/min BUN/Creatinine Ratio 16.0 (14-18) Glucose 137 H (83-115) mg/dL POC Glucose 147 H (83-110) mg/dL Lactic Acid (0.4-2.0) mmol/L Calcium 9.1 (8.5-10.1) mg/dL Total Bilirubin 0.7 (0.2-1.0) mg/dL AST 19 (15-37) U/L ALT 20 (14-59) U/L Alkaline Phosphatase 48 (46-116) U/L Troponin I < 0.017 (0.00-0.056) ng/mL Total Protein 7.5 (6.4-8.2) g/dl Albumin 3.5 (3.4-5.0) g/dl Globulin 4.0 gm/dL Albumin/Globulin Ratio 0.9 L (1-2) Urine Color (Yellow) Urine Appearance (Clear) Urine pH (5.0-8.0) Ur Specific [place] (1.005-1.030) Urine Protein (Negative) Urine Glucose (UA) (Negative) Urine Ketones (Negative) Urine Occult Blood (Negative) Urine Nitrite (Negative) Urine Bilirubin (Negative) Urine Urobilinogen (0.2-1.0) Ur Leukocyte Esterase (Negative) Urine RBC (0-5) /hpf Urine WBC (0-5) /hpf Ur Squamous Epith Cells (0-5) /hpf Urine Bacteria (FEW) /hpf Urine Mucus (FEW) /hpf 04/03/19 04/03/19 04/03/19 Range/Units 18:55 22:04 23:25 WBC (3.98-10.04) K/mm3 RBC (3.98-5.22) M/mm3 Hgb (11.2-15.7) gm/dl Hct (34.1-44.9) % MCV (79.4-94.8) fl MCH (25.6-32.2) pg MCHC (32.2-35.5) g/dl RDW Std Deviation (36.4-46.3) fL Plt Count (182-369) K/mm3 MPV (9.4-12.3) fl Neutrophils % (Manual) (40-60) % Band Neutrophils % (0-10) % Lymphocytes % (Manual) (20-40) % Atypical Lymphs % % Monocytes % (Manual) (2-10) % Eosinophils % (Manual) (0.7-5.8) % Basophils % (Manual) (0.1-1.2) Platelet Estimate RBC Morph Comment Sodium (136-145) mEq/L Potassium (3.5-5.1) mEq/L Chloride (98-107) mEq/L Carbon Dioxide (21-32) mEq/L Anion Gap (5-15) BUN (7-18) mg/dL Creatinine (0.55-1.02) mg/dL Est Cr Clr Drug Dosing mL/min Estimated GFR (MDRD) (>60) mL/min BUN/Creatinine Ratio (14-18) Glucose (83-115) mg/dL POC Glucose 133 H (83-110) mg/dL Lactic Acid 1.3 (0.4-2.0) mmol/L Calcium (8.5-10.1) mg/dL Total Bilirubin (0.2-1.0) mg/dL AST (15-37) U/L ALT (14-59) U/L Alkaline Phosphatase (46-116) U/L Troponin I (0.00-0.056) ng/mL Total Protein (6.4-8.2) g/dl Albumin (3.4-5.0) g/dl Globulin gm/dL Albumin/Globulin Ratio (1-2) Urine Color Yellow (Yellow) Urine Appearance Clear (Clear) Urine pH 7.5 (5.0-8.0) Ur Specific [place] 1.020 (1.005-1.030) Urine Protein Negative (Negative) Urine Glucose (UA) Negative (Negative) Urine Ketones Negative (Negative) Urine Occult Blood Negative (Negative) Urine Nitrite Negative (Negative) Urine Bilirubin Negative (Negative) Urine Urobilinogen 0.2 (0.2-1.0) Ur Leukocyte Esterase Negative (Negative) Urine RBC 0-5 (0-5) /hpf Urine WBC 0-5 (0-5) /hpf Ur Squamous Epith Cells Not seen (0-5) /hpf Urine Bacteria Few (FEW) /hpf Urine Mucus Not seen (FEW) /hpf Meds: Medications Generic Name Dose Route Start Last Admin Trade Name Freq PRN Reason Stop Dose Admin Albuterol/Ipratropium 3 ml 04/03/19 23:10 Duoneb 3.0-0.5 Mg/3 Ml NEB Q4H PRN Shortness Of Breath/wheezing Bisacodyl 5 mg 04/03/19 23:10 Dulcolax PO DAILY PRN Constipation Dextrose/Water 50 ml 04/03/19 23:17 Dextrose 50% In Water IVPUSH ASDIRECTED PRN Hypoglycemia Docusate Sodium 100 mg 04/03/19 23:10 Colace PO BID PRN Constipation Sodium Chloride 1,000 mls @ 999 mls/hr 04/03/19 18:30 04/03/19 19:15 Normal Saline IV 999 mls/hr ONETIME [facility] Administration Sodium Chloride 1,000 mls @ 999 mls/hr 04/03/19 19:15 Normal Saline IV ONETIME [facility] Promethazine HCl 6.25 mg/ 50.25 mls @ 100 mls/hr 04/03/19 23:10 Sodium Chloride IV Q6H PRN Nausea/Vomiting Sodium Chloride 1,000 mls @ 100 mls/hr 04/03/19 23:30 04/04/19 01:29 Normal Saline IV 100 mls/hr ASDIRECTED [facility] Administration Insulin Human Lispro 0 unit 04/04/19 07:00 Humalog SUBCUT QIDACANDBED [facility] Protocol Ondansetron HCl 4 mg 04/03/19 23:10 Zofran IV Q6H PRN Nausea/Vomiting Senna/Docusate Sodium 1 tab 04/03/19 23:10 Senna Plus PO BID PRN Constipation Sodium Chloride 10 ml 04/03/19 18:19 04/03/19 19:23 Saline Flush FLUSH 10 ml ASDIRECTED PRN Administration Keep Vein Open Discontinued Medications Generic Name Dose Route Start Last Admin Trade Name Freq PRN Reason Stop Dose Admin Acetaminophen 650 mg 04/03/19 19:15 04/03/19 19:23 Tylenol RECTAL 04/03/19 19:16 650 mg NOW ONE Administration Ceftriaxone Sodium Confirm 04/03/19 19:19 04/03/19 19:24 Rocephin Administered 04/03/19 19:20 Not Given Dose 2 gm IV .STK-MED ONE Ceftriaxone Sodium 2 gm/ 100 mls @ 200 mls/hr 04/03/19 19:14 Sodium Chloride IV 04/03/19 19:43 ONETIME ONE Ceftriaxone Sodium 2 gm/ 100 mls @ 200 mls/hr 04/03/19 19:21 04/03/19 19:23 Sodium Chloride IV 04/03/19 19:50 200 mls/hr NOW STA Administration Sodium Chloride Confirm 04/03/19 19:19 04/03/19 19:24 Normal Saline Administered 04/03/19 19:20 Not Given Dose 100 mls @ as directed .ROUTE .STK-MED ONE Lorazepam 0.5 mg 04/04/19 00:14 04/04/19 00:22 Ativan IVPUSH 04/04/19 00:15 0.5 mg ONETIME STA Administration Lorazepam 0.5 mg 04/04/19 00:16 04/04/19 00:23 Ativan IVPUSH 04/04/19 00:17 0.5 mg ONETIME ONE Administration Naloxone HCl 0.4 mg 04/03/19 23:16 04/04/19 00:01 Narcan IVPUSH 04/03/19 23:17 0.4 mg ONETIME ONE Administration Quetiapine Fumarate 12.5 mg 04/04/19 00:46 04/04/19 01:59 Seroquel PO 04/04/19 00:47 12.5 mg ONETIME ONE Administration - Re-Assessments/Exams Free Text/Narrative Re-Assessment/Exam: 04/03/19 19:15. Change of shift, old records show that she did present with altered mental status Thompson. 16, somewhat similar to today. Her head CT did come back normal. This was called as a stroke alert due to her altered mental status on arrival to ED, speech difficulty. Rectal temp was 102.4. With cultures 2 have been ordered. Catheter urine has been drawn, reported to appear somewhat foul looking. Rocephin 2 g IV has been ordered. Have transferred care to Dr. Melgar at change of shift. Departure - Departure Disposition: Admitted As Inpatient 64 Clinical Impression: Change in mental status - Discharge Information - My Orders Last 24 Hours: My Active Orders 04/04/19 00:43 Patient Status [ADT] Routine - Assessment/Plan Last 24 Hours: My Active Orders 04/04/19 00:43 Patient Status [ADT] Routine <Armando Melgar - Last Filed: 04/04/19 05:26> ED HPI GENERAL MEDICAL PROBLEM Generalized Pain Score (Numeric/FACES): 0 Course - Re-Assessments/Exams Free Text/Narrative Re-Assessment/Exam: 04/03/19 22:55 Dr. Quintero in the housing staff did find a room for her to go and observation he would like to attempt to adjust her medications. We are in the process of getting settled.. Departure - Departure Time of Disposition: 18:00 - My Orders Last 24 Hours: My Active Orders 04/04/19 00:43 Patient Status [ADT] Routine - Assessment/Plan Last 24 Hours: My Active Orders 04/04/19 00:43 Patient Status [ADT] Routine
[2019-04-03] MEDS ORDERED: cefTRIAXone 2 GM in Sodium Chloride 0.9% 100 ML IV ONE (19:14)
[2019-04-03] MEDS ORDERED: Acetaminophen 650 MG Supp RECTAL ONE (19:15)
[2019-04-03] MEDS ORDERED: Sodium Chloride 0.9% 100 ML ONE (19:19)
[2019-04-03] MEDS ORDERED: cefTRIAXone 2 GM AdvVial IV ONE (19:19)
[2019-04-03] MEDS ORDERED: cefTRIAXone 2 GM in Sodium Chloride 0.9% 100 ML IV STA (19:21)
[2019-04-03] MEDS ORDERED: Promethazine 6.25 MG in Sodium Chloride 0.9% 50 ML IV PRN (23:10)
[2019-04-03] MEDS ORDERED: Docusate Sodium 100 MG Cap PO PRN (23:10)
[2019-04-03] MEDS ORDERED: Ondansetron 4 MG/2 ML SDV IV PRN (23:10)
[2019-04-03] MEDS ORDERED: Albuterol/Ipratropium 3.0-0.5 MG/3 ML Neb Soln NEB PRN (23:10)
[2019-04-03] MEDS ORDERED: Bisacodyl 5 MG Tab PO PRN (23:10)
[2019-04-03] MEDS ORDERED: Naloxone 0.4 MG/ML SDV IVPUSH ONE (23:16)
[2019-04-03] MEDS ORDERED: 50% Dextrose in Water 50 ML Syringe IVPUSH PRN (23:17)
[2019-04-04] MEDS ORDERED: LORazepam 2 MG/ML SDV IVPUSH STA (00:14)
[2019-04-04] MEDS ORDERED: LORazepam 2 MG/ML SDV IVPUSH ONE (00:16)
[2019-04-04] MEDS ORDERED: QUEtiapine 25 MG Tab PO ONE (00:46)
[2019-04-04] MEDS: Sodium Chloride 0.9% 1,000 ML IV SCH ×2 (01:29→13:01)
[2019-04-04] MEDS: Insulin Lispro 100 Units/ML 3 ML Vial SUBCUT SCH ×4 (07:57→21:34)
--- NOTE | 2019-04-04 08:00 | PCM.HP.2 ---
H&P History of Present Illness - General Date of Service: 04/04/19 Admit Problem/Dx: Admission Diagnosis/Problem Admission Diagnosis/Problem Altered mental status Source of Information: Patient, Family, Old Records, Provider, RN Notes Reviewed History Limitations: Reports: Altered Mental Status - History of Present Illness Initial Comments - Free Text/Narative: This is a 74 yo with past medical hx/o HTN, HLD, Hypothyroidism, Gout, Chronic Pain Syndrome-Opioid Dependent, Back Pain S/p Stimulator Device Placement, Peripheral Neuropathy and Class I Obesity who presents to ED for evaluation of AMS. Her last known well was 9 AM yesterday. Her states that she did not wake up after laid down for a nap. He tried to wake her up but was difficult to arouse. He called EMS and she was brought over for evaluation of stroke. Her head CT scan revealed no acute intra-cranial abnormality. Her initial work up in ED showed a CBC remarkable for WBC of 24.44, Neutrophils of 86% and Lymphocytes of 11%. Her Chemistry was fairly unremarkable. Her UA was negative for UTI. Patient received initial treatment before she was sent to the unit for further treatment. She was primarily admitted for AMS and Left Lower Leg Cellulitis. Generalized Pain Score (Numeric/FACES): 0 - Related Data Allergies/Adverse Reactions: Allergies Allergy/AdvReac Type Severity Reaction Status Date / Time No Known Allergies Allergy Verified 04/04/19 01:57 Home Medications: Home Meds Pregabalin [Lyrica] 200 mg PO TID 07/03/14 [History] metFORMIN [Glucophage] 1,500 mg PO DAILY 07/03/14 [History] Insulin Glarg,Human.Rec.Analog [Lantus] 28 unit SUBCUT QPM 07/04/14 [History] Allopurinol [Zyloprim] 100 mg PO DAILY 08/01/17 [History] Levothyroxine 75 mg PO DAILY 08/01/17 [History] Metoprolol Tartrate 12.5 mg PO BID 08/01/17 [History] Simvastatin [Zocor] 10 mg PO BEDTIME 08/01/17 [History] Folic Acid 0.8 mg PO DAILY 04/03/19 [History] Garlic [Garlic Oil] 1,000 mg PO DAILY 04/03/19 [History] DULoxetine [Cymbalta] 60 mg PO DAILY 04/04/19 [History] fentaNYL [Duragesic] 50 mcg TRDERM ASDIRECTED 04/04/19 [History] Past Medical History HEENT History: Reports: Impaired Vision Cardiovascular History: Reports: High Cholesterol, Hypertension Genitourinary History: Reports: Renal Calculus Musculoskeletal History: Reports: Gout Neurological History: Reports: Neuropathy, Peripheral Psychiatric History: Reports: Depression Endocrine/Metabolic History: Reports: Diabetes, Type II, Hypothyroidism Hematologic History: Reports: None - Infectious Disease History Infectious Disease History: Reports: Chicken Pox, Measles - Past Surgical History HEENT Surgical History: Reports: Cataract Surgery, Oral Surgery GI Surgical History: Reports: Appendectomy Female Surgical History: Reports: Hysterectomy Musculoskeletal Surgical History: Reports: Other (See Below) Other Musculoskeletal Surgeries/Procedures:: left ankle surgery Social & Family History - Family History Family Medical History: Noncontributory - Tobacco Use Smoking Status *Q: Unknown Ever Smoked - Caffeine Use Caffeine Use: Reports: Coffee - Recreational Drug Use Recreational Drug Use: No Recreational Drug Type: Reports: Other (see below) Other Recreational Drug Type: Unable to answer questions at this time. Patient is lethargic non verbal no family is present H&P Review of Systems - Review of Systems: Review Of Systems: See Below General: Reports: Malaise. Denies: Fever, Chills, Weakness, Fatigue HEENT: Reports: No Symptoms Pulmonary: Denies: Shortness of Breath, Wheezing, Pleuritic Chest Pain Cardiovascular: Denies: Chest Pain, Dyspnea on Exertion, Lightheadedness Gastrointestinal: Denies: Abdominal Pain, Nausea, Vomiting Genitourinary: Reports: No Symptoms Musculoskeletal: Reports: No Symptoms Skin: Denies: Cyanosis, Bruising Psychiatric: Denies: Confusion, Depression, Mood Lability, Anxiety, Hallucinations, Suicidal Ideation, Homicidal Ideation, Hallucinations (Auditory) , Hallucinations (Visual) Neurological: Reports: Difficulty Walking, Gait Disturbance. Denies: Confusion , Weakness Hematologic/Lymphatic: Reports: No Symptoms Immunologic: Reports: No Symptoms Exam - Exam Exam: See Below - Vital Signs Vital Signs: Last Vital Signs Temp 36.5 C 04/04/19 04:00 Pulse 64 04/04/19 04:00 Resp 20 04/04/19 04:00 BP 127/57 L 04/04/19 04:00 Pulse Ox 100 04/04/19 04:00 Weight: 100.45 kg - Exam General: Alert, Oriented, Cooperative HEENT: Conjunctiva Clear, EACs Clear, EOMI, Hearing Intact, Mucosa Moist & Alex , Nares Patent, Normal Nasal Septum, Posterior Pharynx Clear, Pupils Equal, Pupils Reactive Neck: Supple, Trachea Midline Lungs: Normal Respiratory Effort, Decreased Breath Sounds Cardiovascular: Regular Rate, Regular Rhythm GI/Abdominal Exam: Normal Bowel Sounds, Soft, Non-Tender, No Organomegaly, No Distention, No Abnormal Bruit, No Mass (Female) Exam: Deferred Rectal (Female) Exam: Deferred Back Exam: Normal Inspection, Decreased Range of Motion Extremities: Normal Inspection, Normal Range of Motion, Non-Tender, No Pedal Edema, Normal Capillary Refill Peripheral Pulses: 2+: Posterior Tibial (L), Posterior Tibial (R), Dorsalis Pedis (L), Dorsalis Pedis (R) Skin: Warm, Dry, Intact Neuro Extensive - Mental Status: Normal Mood/Affect, Memory Intact Neuro Extensive - Motor, Sensory, Reflexes: CN II-XII Intact (grossly intact), Abnormal Gait (limited but grossly intact) Psychiatric: Alert, Normal Affect, Normal Mood - Patient Data Lab Results Last 24 hrs: Laboratory Results - last 24 hr 04/03/19 04/03/19 04/03/19 Range/Units 18:30 18:46 18:46 WBC 24.44 H (3.98-10.04) K/mm3 RBC 4.46 (3.98-5.22) M/mm3 Hgb 13.2 D (11.2-15.7) gm/dl Hct 40.8 (34.1-44.9) % MCV 91.5 (79.4-94.8) fl MCH 29.6 (25.6-32.2) pg MCHC 32.4 (32.2-35.5) g/dl RDW Std Deviation 45.7 (36.4-46.3) fL Plt Count 255 (182-369) K/mm3 MPV 10.5 (9.4-12.3) fl Neut % (Auto) (34.0-71.1) % Lymph % (Auto) (19.3-51.7) % [place] % (Auto) (4.7-12.5) % Eos % (Auto) (0.7-5.8) Baso % (Auto) (0.1-1.2) % Neut # (Auto) (1.56-6.13) K/mm3 Lymph # (Auto) (1.18-3.74) K/mm3 [place] # (Auto) (0.24-0.36) K/mm3 Eos # (Auto) (0.04-0.36) K/mm3 Baso # (Auto) (0.01-0.08) K/mm3 Neutrophils % (Manual) 86 H (40-60) % Band Neutrophils % 0 (0-10) % Lymphocytes % (Manual) 11 L (20-40) % Atypical Lymphs % 0 % Monocytes % (Manual) 3 (2-10) % Eosinophils % (Manual) 0 L (0.7-5.8) % Basophils % (Manual) 0 L (0.1-1.2) Manual Slide Review Platelet Estimate Adequate RBC Morph Comment Normal Sodium 137 (136-145) mEq/L Potassium 4.9 (3.5-5.1) mEq/L Chloride 102 (98-107) mEq/L Carbon Dioxide 27 (21-32) mEq/L Anion Gap 12.9 (5-15) BUN 16 (7-18) mg/dL Creatinine 1.0 (0.55-1.02) mg/dL Est Cr Clr Drug Dosing 48.28 mL/min Estimated GFR (MDRD) 54 (>60) mL/min BUN/Creatinine Ratio 16.0 (14-18) Glucose 137 H (83-115) mg/dL POC Glucose 147 H (83-110) mg/dL Lactic Acid (0.4-2.0) mmol/L Calcium 9.1 (8.5-10.1) mg/dL Magnesium (1.8-2.4) mg/dl Total Bilirubin 0.7 (0.2-1.0) mg/dL AST 19 (15-37) U/L ALT 20 (14-59) U/L Alkaline Phosphatase 48 (46-116) U/L Troponin I < 0.017 (0.00-0.056) ng/mL C-Reactive Protein (<1.0) mg/dL Total Protein 7.5 (6.4-8.2) g/dl Albumin 3.5 (3.4-5.0) g/dl Globulin 4.0 gm/dL Albumin/Globulin Ratio 0.9 L (1-2) Urine Color (Yellow) Urine Appearance (Clear) Urine pH (5.0-8.0) Ur Specific [place] (1.005-1.030) Urine Protein (Negative) Urine Glucose (UA) (Negative) Urine Ketones (Negative) Urine Occult Blood (Negative) Urine Nitrite (Negative) Urine Bilirubin (Negative) Urine Urobilinogen (0.2-1.0) Ur Leukocyte Esterase (Negative) Urine RBC (0-5) /hpf Urine WBC (0-5) /hpf Ur Squamous Epith Cells (0-5) /hpf Urine Bacteria (FEW) /hpf Urine Mucus (FEW) /hpf 04/03/19 04/03/19 04/03/19 Range/Units 18:55 22:04 23:25 WBC (3.98-10.04) K/mm3 RBC (3.98-5.22) M/mm3 Hgb (11.2-15.7) gm/dl Hct (34.1-44.9) % MCV (79.4-94.8) fl MCH (25.6-32.2) pg MCHC (32.2-35.5) g/dl RDW Std Deviation (36.4-46.3) fL Plt Count (182-369) K/mm3 MPV (9.4-12.3) fl Neut % (Auto) (34.0-71.1) % Lymph % (Auto) (19.3-51.7) % [place] % (Auto) (4.7-12.5) % Eos % (Auto) (0.7-5.8) Baso % (Auto) (0.1-1.2) % Neut # (Auto) (1.56-6.13) K/mm3 Lymph # (Auto) (1.18-3.74) K/mm3 [place] # (Auto) (0.24-0.36) K/mm3 Eos # (Auto) (0.04-0.36) K/mm3 Baso # (Auto) (0.01-0.08) K/mm3 Neutrophils % (Manual) (40-60) % Band Neutrophils % (0-10) % Lymphocytes % (Manual) (20-40) % Atypical Lymphs % % Monocytes % (Manual) (2-10) % Eosinophils % (Manual) (0.7-5.8) % Basophils % (Manual) (0.1-1.2) Manual Slide Review Platelet Estimate RBC Morph Comment Sodium (136-145) mEq/L Potassium (3.5-5.1) mEq/L Chloride (98-107) mEq/L Carbon Dioxide (21-32) mEq/L Anion Gap (5-15) BUN (7-18) mg/dL Creatinine (0.55-1.02) mg/dL Est Cr Clr Drug Dosing mL/min Estimated GFR (MDRD) (>60) mL/min BUN/Creatinine Ratio (14-18) Glucose (83-115) mg/dL POC Glucose 133 H (83-110) mg/dL Lactic Acid 1.3 (0.4-2.0) mmol/L Calcium (8.5-10.1) mg/dL Magnesium (1.8-2.4) mg/dl Total Bilirubin (0.2-1.0) mg/dL AST (15-37) U/L ALT (14-59) U/L Alkaline Phosphatase (46-116) U/L Troponin I (0.00-0.056) ng/mL C-Reactive Protein (<1.0) mg/dL Total Protein (6.4-8.2) g/dl Albumin (3.4-5.0) g/dl Globulin gm/dL Albumin/Globulin Ratio (1-2) Urine Color Yellow (Yellow) Urine Appearance Clear (Clear) Urine pH 7.5 (5.0-8.0) Ur Specific [place] 1.020 (1.005-1.030) Urine Protein Negative (Negative) Urine Glucose (UA) Negative (Negative) Urine Ketones Negative (Negative) Urine Occult Blood Negative (Negative) Urine Nitrite Negative (Negative) Urine Bilirubin Negative (Negative) Urine Urobilinogen 0.2 (0.2-1.0) Ur Leukocyte Esterase Negative (Negative) Urine RBC 0-5 (0-5) /hpf Urine WBC 0-5 (0-5) /hpf Ur Squamous Epith Cells Not seen (0-5) /hpf Urine Bacteria Few (FEW) /hpf Urine Mucus Not seen (FEW) /hpf 04/04/19 04/04/19 04/04/19 Range/Units 04:55 04:55 06:27 WBC 20.87 H (3.98-10.04) K/mm3 RBC 3.88 L (3.98-5.22) M/mm3 Hgb 11.8 (11.2-15.7) gm/dl Hct 35.6 (34.1-44.9) % MCV 91.8 (79.4-94.8) fl MCH 30.4 (25.6-32.2) pg MCHC 33.1 (32.2-35.5) g/dl RDW Std Deviation 45.7 (36.4-46.3) fL Plt Count 206 (182-369) K/mm3 MPV 10.5 (9.4-12.3) fl Neut % (Auto) 85.1 H (34.0-71.1) % Lymph % (Auto) 9.6 L (19.3-51.7) % [place] % (Auto) 4.8 (4.7-12.5) % Eos % (Auto) 0 L (0.7-5.8) Baso % (Auto) 0.1 (0.1-1.2) % Neut # (Auto) 17.75 H (1.56-6.13) K/mm3 Lymph # (Auto) 2.01 (1.18-3.74) K/mm3 [place] # (Auto) 1.01 H (0.24-0.36) K/mm3 Eos # (Auto) 0.00 L (0.04-0.36) K/mm3 Baso # (Auto) 0.02 (0.01-0.08) K/mm3 Neutrophils % (Manual) (40-60) % Band Neutrophils % (0-10) % Lymphocytes % (Manual) (20-40) % Atypical Lymphs % % Monocytes % (Manual) (2-10) % Eosinophils % (Manual) (0.7-5.8) % Basophils % (Manual) (0.1-1.2) Manual Slide Review Abnormal smear Platelet Estimate RBC Morph Comment Sodium 138 (136-145) mEq/L Potassium 3.9 (3.5-5.1) mEq/L Chloride 103 (98-107) mEq/L Carbon Dioxide 25 (21-32) mEq/L Anion Gap 13.9 (5-15) BUN 15 (7-18) mg/dL Creatinine 1.0 (0.55-1.02) mg/dL Est Cr Clr Drug Dosing 48.28 mL/min Estimated GFR (MDRD) 54 (>60) mL/min BUN/Creatinine Ratio 15.0 (14-18) Glucose 135 H (83-115) mg/dL POC Glucose 130 H (83-110) mg/dL Lactic Acid (0.4-2.0) mmol/L Calcium 7.8 L (8.5-10.1) mg/dL Magnesium 1.5 L (1.8-2.4) mg/dl Total Bilirubin (0.2-1.0) mg/dL AST (15-37) U/L ALT (14-59) U/L Alkaline Phosphatase (46-116) U/L Troponin I (0.00-0.056) ng/mL C-Reactive Protein 7.7 H* (<1.0) mg/dL Total Protein (6.4-8.2) g/dl Albumin (3.4-5.0) g/dl Globulin gm/dL Albumin/Globulin Ratio (1-2) Urine Color (Yellow) Urine Appearance (Clear) Urine pH (5.0-8.0) Ur Specific [place] (1.005-1.030) Urine Protein (Negative) Urine Glucose (UA) (Negative) Urine Ketones (Negative) Urine Occult Blood (Negative) Urine Nitrite (Negative) Urine Bilirubin (Negative) Urine Urobilinogen (0.2-1.0) Ur Leukocyte Esterase (Negative) Urine RBC (0-5) /hpf Urine WBC (0-5) /hpf Ur Squamous Epith Cells (0-5) /hpf Urine Bacteria (FEW) /hpf Urine Mucus (FEW) /hpf Result Diagrams: 04/05/19 04:45 04/05/19 04:45 Problem List Initiated/Reviewed/Updated: Yes Orders Last 24hrs: Active Orders 24 hr Category Date Time Status Patient Status [ADT] Routine ADT 04/04/19 00:43 Active Antiembolic Devices [RC] PER UNIT ROUTINE Care 04/03/19 23:14 Active Blood Glucose Check, Bedside [RC] QIDACANDBED Care 04/03/19 23:17 Active Height and Weight [RC] 0400 Care 04/03/19 23:10 Active Intake and Output [RC] 0400,1600 Care 04/03/19 23:13 Active Oxygen Therapy [RC] PRN Care 04/03/19 23:10 Active RT Aerosol Therapy [RC] ASDIRECTED Care 04/03/19 23:14 Active Up With Assistance [RC] 1600 Care 04/03/19 23:10 Active Up ad Sammie [RC] 1600 Care 04/03/19 23:10 Active VTE/DVT Education [RC] 1600 Care 04/03/19 23:10 Active Vital Signs [RC] Q4HR Care 04/03/19 23:10 Active Consult to Case Management/Buffet Server [CONS] Cons 04/03/19 23:10 Active Routine Consult to Plastic Manager [CONS] Routine Cons 04/03/19 23:10 Active Consult to Spiritual Care [CONS] Routine Cons 04/03/19 23:10 Active OT Evaluation and Treatment [CONS] Routine Cons 04/03/19 23:10 Active PT Evaluation and Treatment [CONS] Routine Cons 04/03/19 23:10 Active Heart Healthy Diet [DIET] Diet 04/04/19 Breakfast Active Chest 1V Frontal [CR] Stat Exams 04/03/19 18:18 Taken BASIC METABOLIC PANEL,BMP [CHEM] AM Lab 04/05/19 05:11 Ordered BASIC METABOLIC PANEL,BMP [CHEM] AM Lab 04/06/19 05:11 Ordered BASIC METABOLIC PANEL,BMP [CHEM] AM Lab 04/07/19 05:11 Ordered BASIC METABOLIC PANEL,BMP [CHEM] AM Lab 04/08/19 05:11 Ordered C-REACTIVE PROTEIN [CHEM] AM Lab 04/05/19 05:11 Ordered C-REACTIVE PROTEIN [CHEM] AM Lab 04/06/19 05:11 Ordered C-REACTIVE PROTEIN [CHEM] AM Lab 04/07/19 05:11 Ordered C-REACTIVE PROTEIN [CHEM] AM Lab 04/08/19 05:11 Ordered CBC WITH AUTO DIFF [HEME] AM Lab 04/05/19 05:11 Ordered CBC WITH AUTO DIFF [HEME] AM Lab 04/06/19 05:11 Ordered CBC WITH AUTO DIFF [HEME] AM Lab 04/07/19 05:11 Ordered CBC WITH AUTO DIFF [HEME] AM Lab 04/08/19 05:11 Ordered CULTURE BLOOD [BC] Stat Lab 04/03/19 18:46 Received CULTURE BLOOD [BC] Stat Lab 04/03/19 19:20 Received CULTURE URINE [RM] Stat Lab 04/03/19 18:55 Received MAGNESIUM [CHEM] AM Lab 04/05/19 05:11 Ordered MAGNESIUM [CHEM] AM Lab 04/06/19 05:11 Ordered MAGNESIUM [CHEM] AM Lab 04/07/19 05:11 Ordered MAGNESIUM [CHEM] AM Lab 04/08/19 05:11 Ordered Albuterol/Ipratropium [DuoNeb 3.0-0.5 MG/3 ML] Med 04/03/19 23:10 Active 3 ml NEB Q4H PRN Bisacodyl [Dulcolax] Med 04/03/19 23:10 Active 5 mg PO DAILY PRN Dextrose 50% in Water Med 04/03/19 23:17 Active 50 ml IVPUSH ASDIRECTED PRN Docusate Sodium [Colace] Med 04/03/19 23:10 Active 100 mg PO BID PRN Docusate Sodium/Sennosides [Senna Plus] Med 04/03/19 23:10 Active 1 tab PO BID PRN Insulin Lispro [HumaLOG] Med 04/04/19 07:00 Active See Protocol SUBCUT QIDACANDBED Ondansetron [Zofran] Med 04/03/19 23:10 Active 4 mg IV Q6H PRN Promethazine [Phenergan] 6.25 mg Med 04/03/19 23:10 Active Sodium Chloride 0.9% [Normal Saline] 50 ml IV Q6H Sodium Chloride 0.9% [Normal Saline] 1,000 ml Med 04/03/19 23:30 Active IV ASDIRECTED Sodium Chloride 0.9% [Normal Saline] 1,000 ml Med 04/03/19 18:30 Active IV ONETIME Sodium Chloride 0.9% [Normal Saline] 1,000 ml Med 04/03/19 19:15 Active IV ONETIME Sodium Chloride 0.9% [Saline Flush] Med 04/03/19 18:19 Active 10 ml FLUSH ASDIRECTED PRN Peripheral IV Insertion Adult [OM.PC] Stat Oth 04/03/19 18:19 Ordered Sequential Compression Device [OM.PC] Per Unit Routine Oth 04/03/19 23:13 Ordered Resuscitation Status Routine Resus Stat 04/03/19 23:10 Ordered Medication Orders Albuterol/Ipratropium (Duoneb 3.0-0.5 Mg/3 Ml) 3 ml NEB Q4H PRN PRN Reason: Shortness Of Breath/wheezing Bisacodyl (Dulcolax) 5 mg PO DAILY PRN PRN Reason: Constipation Dextrose/Water (Dextrose 50% In Water) 50 ml IVPUSH ASDIRECTED PRN PRN Reason: Hypoglycemia Docusate Sodium (Colace) 100 mg PO BID PRN PRN Reason: Constipation Sodium Chloride (Normal Saline) 1,000 mls @ 999 mls/hr IV ONETIME HELENE Last Admin: 04/03/19 19:15 Dose: 999 mls/hr Sodium Chloride (Normal Saline) 1,000 mls @ 999 mls/hr IV ONETIME HELENE Promethazine HCl 6.25 mg/ (Sodium Chloride) 50.25 mls @ 100 mls/hr IV Q6H PRN PRN Reason: Nausea/Vomiting Sodium Chloride (Normal Saline) 1,000 mls @ 100 mls/hr IV ASDIRECTED [facility] Last Admin: 04/04/19 01:29 Dose: 100 mls/hr Insulin Human Lispro (Humalog) 0 unit SUBCUT QIDACANDBED [facility]; Protocol Last Admin: 04/04/19 07:57 Dose: Not Given Ondansetron HCl (Zofran) 4 mg IV Q6H PRN PRN Reason: Nausea/Vomiting Senna/Docusate Sodium (Senna Plus) 1 tab PO BID PRN PRN Reason: Constipation Sodium Chloride (Saline Flush) 10 ml FLUSH ASDIRECTED PRN PRN Reason: Keep Vein Open Last Admin: 04/03/19 19:23 Dose: 10 ml Assessment/Plan Comment:: Assessment: Acute: AMS - 2/2 Metabolic Encephalopathy - Negative Head CT scan - She appears to be back at baseline after her fentanyl patch was removed and received a dose of Narcan last night - Offered Brain MRI and Head and Neck MRA to r/o stroke- patient wants to speak with her first SSTI/right LE Cellulitis - She is diabetes - Continue IV Rocephin 1 gram BID Leukocytosis - WBC of 24.44-->20.87 - CRP of 7.7 - Treat underlying cause Hypomagnesemia - Mg of 1.4 - Replete and monitor Class I Obesity - Dietary consult for weight management Chronic: HTN, HLD, Hypothyroidism, Gout, Chronic [place] Syndrome-Opioid Dependent, Back Pain S/p Stimulator Device Placement, Peripheral Neuropathy and Class I Obesity Plan: Admitted overnight in ICU Resume Some Home Meds Routine AM Labs ADA diet Accu-check QID with ISS Aspiration/Fall Precautions PT/OT to assess and treat DVT/GI Prophylaxis SW/CM for d/c planning Code status: CPR only Additional orders as above - Mortality Measure Prognosis:: Good
[2019-04-04] MEDS ORDERED: Magnesium Sulfate/Water 4 GM in Premix Bag 1 BAG IV ONE (08:45)
[2019-04-04] MEDS: Saccharomyces Boulardii (Probiotic) 250 MG Cap PO SCH (09:24)
--- NOTE | 2019-04-04 09:40 | CR ---
Chest: Portable view of the chest was obtained. Comparison: Prior chest x-ray of 08/01/17. Heart size is within normal limits for portable technique. Tortuous thoracic aorta is noted. Central lung markings are slightly increased. Difficult to exclude mild bronchitis. Minimal atelectasis is also noted within the left lung base. Lungs otherwise are clear. Electrostimulating device is seen overlying the lower thoracic spine. Impression: 1. Difficult to exclude mild bronchitis. Slight left basilar atelectasis is noted. 2. Other findings which are felt incidental. Diagnostic code #3
[2019-04-04] MEDS ORDERED: Sodium Chloride 0.9% 500 ML IV ONE (11:57)
[2019-04-04] MEDS: Enoxaparin 40 MG/0.4 ML Syringe SUBCUT SCH (13:01)
[2019-04-04] MEDS ORDERED: Aspirin 81 MG Tab.EC PO SCH (15:15)
[2019-04-04] MEDS ORDERED: oxyCODONE 5 MG Tab PO PRN (18:53)
[2019-04-04] MEDS ORDERED: HYDROmorphone 1 MG/ML Syringe IVPUSH PRN (18:53)
[2019-04-04] MEDS ORDERED: cefTRIAXone 1 GM in Sodium Chloride 0.9% 100 ML IV SCH (19:00)
[2019-04-04] MEDS: oxyCODONE ER 20 MG TAB.ER PO SCH (20:22)
[2019-04-04] MEDS: Pregabalin 25 MG Cap PO SCH (20:23)
[2019-04-04] MEDS: Pregabalin 75 MG Cap PO SCH (20:24)
[2019-04-04] MEDS: Simvastatin 10 MG Tab PO SCH (20:24)
[2019-04-04] MEDS: Metoprolol Tartrate 25 MG Tab PO SCH (20:31)
[2019-04-04] MEDS ORDERED: Simvastatin 20 MG Tab PO SCH (21:00)
[2019-04-05] MEDS: cefTRIAXone 1 GM in Sodium Chloride 0.9% 100 ML IV SCH ×2 (06:10→17:46)
[2019-04-05] MEDS: Levothyroxine 75 MCG Tab PO SCH (06:10)
[2019-04-05] MEDS: Insulin Lispro 100 Units/ML 3 ML Vial SUBCUT SCH ×4 (06:42→21:01)
--- NOTE | 2019-04-05 07:15 | PCM.PN ---
- General Info Date of Service: 04/05/19 Admission Dx/Problem (Free Text): Admission Diagnosis/Problem Admission Diagnosis/Problem Altered mental status Subjective Update: Follow Up Functional Status: Reports: Pain Controlled, Tolerating Diet, Ambulating, Urinating. Denies: New Symptoms - Review of Systems General: Denies: Fever, Weakness, Fatigue, Malaise, Chills HEENT: Reports: No Symptoms Pulmonary: Denies: Shortness of Breath Cardiovascular: Denies: Chest Pain, Dyspnea on Exertion, Lightheadedness Gastrointestinal: Denies: Abdominal Pain, Nausea, Vomiting Genitourinary: Reports: No Symptoms Musculoskeletal: Reports: No Symptoms Skin: Denies: No Symptoms, Mottled, Pallor, Diaphoresis, Bruising Neurological: Reports: Weakness, Gait Disturbance. Denies: Confusion Psychiatric: Denies: Depression, Anxiety, Agitation, Hallucinations Systems Review Comment:: Slept good and doing okay. She appears to be at baseline with cognition. - Patient Data Vitals - Most Recent: Last Vital Signs Temp 36.8 C 04/04/19 20:00 Pulse 60 04/05/19 04:00 Resp 18 04/04/19 23:44 BP 123/55 L 04/05/19 04:00 Pulse Ox 94 L 04/04/19 23:44 Weight - Most Recent: 100.45 kg I&O - Last 24 Hours: Intake & Output 04/04/19 04/05/19 04/05/19 22:59 06:59 14:59 Intake Total 2051 1200 Output Total 1400 Balance 651 1200 Lab Results Last 24 Hours: Laboratory Results - last 24 hr 04/04/19 04/04/19 04/04/19 Range/Units 04:55 12:38 17:48 WBC (3.98-10.04) K/mm3 RBC (3.98-5.22) M/mm3 Hgb (11.2-15.7) gm/dl Hct (34.1-44.9) % MCV (79.4-94.8) fl MCH (25.6-32.2) pg MCHC (32.2-35.5) g/dl RDW Std Deviation (36.4-46.3) fL Plt Count (182-369) K/mm3 MPV (9.4-12.3) fl Neut % (Auto) (34.0-71.1) % Lymph % (Auto) (19.3-51.7) % Trigg % (Auto) (4.7-12.5) % Eos % (Auto) (0.7-5.8) Baso % (Auto) (0.1-1.2) % Neut # (Auto) (1.56-6.13) K/mm3 Lymph # (Auto) (1.18-3.74) K/mm3 Trigg # (Auto) (0.24-0.36) K/mm3 Eos # (Auto) (0.04-0.36) K/mm3 Baso # (Auto) (0.01-0.08) K/mm3 Manual Slide Review Abnormal smear Sodium (136-145) mEq/L Potassium (3.5-5.1) mEq/L Chloride (98-107) mEq/L Carbon Dioxide (21-32) mEq/L Anion Gap (5-15) BUN (7-18) mg/dL Creatinine (0.55-1.02) mg/dL Est Cr Clr Drug Dosing mL/min Estimated GFR (MDRD) (>60) mL/min BUN/Creatinine Ratio (14-18) Glucose (83-115) mg/dL POC Glucose 181 H 152 H (83-110) mg/dL Calcium (8.5-10.1) mg/dL Magnesium (1.8-2.4) mg/dl C-Reactive Protein (<1.0) mg/dL Triglycerides (<150) mg/dL Cholesterol (<200) mg/dL LDL Cholesterol Direct (<100) mg/dL HDL Cholesterol (40-59) mg/dL 04/04/19 04/05/19 04/05/19 Range/Units 21:33 04:45 04:45 WBC 12.69 H (3.98-10.04) K/mm3 RBC 3.85 L (3.98-5.22) M/mm3 Hgb 11.5 (11.2-15.7) gm/dl Hct 35.4 (34.1-44.9) % MCV 91.9 (79.4-94.8) fl MCH 29.9 (25.6-32.2) pg MCHC 32.5 (32.2-35.5) g/dl RDW Std Deviation 47.2 H (36.4-46.3) fL Plt Count 193 (182-369) K/mm3 MPV 10.5 (9.4-12.3) fl Neut % (Auto) 70.7 (34.0-71.1) % Lymph % (Auto) 20.7 (19.3-51.7) % Trigg % (Auto) 7.4 (4.7-12.5) % Eos % (Auto) 0.8 (0.7-5.8) Baso % (Auto) 0.2 (0.1-1.2) % Neut # (Auto) 8.96 H (1.56-6.13) K/mm3 Lymph # (Auto) 2.63 (1.18-3.74) K/mm3 Trigg # (Auto) 0.94 H (0.24-0.36) K/mm3 Eos # (Auto) 0.10 (0.04-0.36) K/mm3 Baso # (Auto) 0.03 (0.01-0.08) K/mm3 Manual Slide Review Sodium 139 (136-145) mEq/L Potassium 4.0 (3.5-5.1) mEq/L Chloride 105 (98-107) mEq/L Carbon Dioxide 25 (21-32) mEq/L Anion Gap 13.0 (5-15) BUN 13 (7-18) mg/dL Creatinine 0.9 (0.55-1.02) mg/dL Est Cr Clr Drug Dosing 53.86 mL/min Estimated GFR (MDRD) > 60 (>60) mL/min BUN/Creatinine Ratio 14.4 (14-18) Glucose 132 H (83-115) mg/dL POC Glucose 207 H (83-110) mg/dL Calcium 8.3 L (8.5-10.1) mg/dL Magnesium 2.2 (1.8-2.4) mg/dl C-Reactive Protein 11.2 H* (<1.0) mg/dL Triglycerides 99 (<150) mg/dL Cholesterol 109 (<200) mg/dL LDL Cholesterol Direct 56 (<100) mg/dL HDL Cholesterol 43.0 (40-59) mg/dL 04/05/19 Range/Units 06:19 WBC (3.98-10.04) K/mm3 RBC (3.98-5.22) M/mm3 Hgb (11.2-15.7) gm/dl Hct (34.1-44.9) % MCV (79.4-94.8) fl MCH (25.6-32.2) pg MCHC (32.2-35.5) g/dl RDW Std Deviation (36.4-46.3) fL Plt Count (182-369) K/mm3 MPV (9.4-12.3) fl Neut % (Auto) (34.0-71.1) % Lymph % (Auto) (19.3-51.7) % Trigg % (Auto) (4.7-12.5) % Eos % (Auto) (0.7-5.8) Baso % (Auto) (0.1-1.2) % Neut # (Auto) (1.56-6.13) K/mm3 Lymph # (Auto) (1.18-3.74) K/mm3 Trigg # (Auto) (0.24-0.36) K/mm3 Eos # (Auto) (0.04-0.36) K/mm3 Baso # (Auto) (0.01-0.08) K/mm3 Manual Slide Review Sodium (136-145) mEq/L Potassium (3.5-5.1) mEq/L Chloride (98-107) mEq/L Carbon Dioxide (21-32) mEq/L Anion Gap (5-15) BUN (7-18) mg/dL Creatinine (0.55-1.02) mg/dL Est Cr Clr Drug Dosing mL/min Estimated GFR (MDRD) (>60) mL/min BUN/Creatinine Ratio (14-18) Glucose (83-115) mg/dL POC Glucose 134 H (83-110) mg/dL Calcium (8.5-10.1) mg/dL Magnesium (1.8-2.4) mg/dl C-Reactive Protein (<1.0) mg/dL Triglycerides (<150) mg/dL Cholesterol (<200) mg/dL LDL Cholesterol Direct (<100) mg/dL HDL Cholesterol (40-59) mg/dL Eyad Results Last 24 Hours: Microbiology 04/03/19 19:20 Aerobic Blood Culture - Preliminary Blood NO GROWTH AFTER 1 DAY Anaerobic Blood Culture - Preliminary NO GROWTH AFTER 1 DAY 04/03/19 18:46 Aerobic Blood Culture - Preliminary Blood NO GROWTH AFTER 1 DAY Anaerobic Blood Culture - Preliminary NO GROWTH AFTER 1 DAY Med Orders - Current: Current Medications Albuterol/Ipratropium (Duoneb 3.0-0.5 Mg/3 Ml) 3 ml NEB Q4H PRN PRN Reason: Shortness Of Breath/wheezing Allopurinol (Zyloprim) 100 mg PO DAILY [facility] Aspirin (Halfprin) 81 mg PO DAILY [facility] Bisacodyl (Dulcolax) 5 mg PO DAILY PRN PRN Reason: Constipation Dextrose/Water (Dextrose 50% In Water) 50 ml IVPUSH ASDIRECTED PRN PRN Reason: Hypoglycemia Docusate Sodium (Colace) 100 mg PO BID PRN PRN Reason: Constipation Duloxetine HCl (Cymbalta) 60 mg PO DAILY [facility] Enoxaparin Sodium (Lovenox) 40 mg SUBCUT DAILY [facility] Last Admin: 04/04/19 13:01 Dose: 40 mg Hydromorphone HCl (Dilaudid) 1 mg IVPUSH Q4H PRN PRN Reason: Pain (severe 7-10) Sodium Chloride (Normal Saline) 1,000 mls @ 999 mls/hr IV ONETIME [facility] Last Admin: 04/03/19 19:15 Dose: 999 mls/hr Sodium Chloride (Normal Saline) 1,000 mls @ 999 mls/hr IV ONETIME [facility] Promethazine HCl 6.25 mg/ (Sodium Chloride) 50.25 mls @ 100 mls/hr IV Q6H PRN PRN Reason: Nausea/Vomiting Sodium Chloride (Normal Saline) 1,000 mls @ 100 mls/hr IV ASDIRECTED [facility] Last Admin: 04/04/19 13:01 Dose: 100 mls/hr Ceftriaxone Sodium 1 gm/ (Sodium Chloride) 100 mls @ 200 mls/hr IV Q12H [facility] Last Admin: 04/05/19 06:10 Dose: 200 mls/hr Insulin Glargine (Lantus) 28 unit SUBCUT QPM [facility] Insulin Human Lispro (Humalog) 0 unit SUBCUT QIDACANDBED [facility]; Protocol Last Admin: 04/05/19 06:42 Dose: Not Given Levothyroxine Sodium (Levothyroxine) 75 mcg PO DAILY@0700 [facility] Last Admin: 04/05/19 06:10 Dose: 75 mcg Metoprolol Tartrate (Lopressor) 12.5 mg PO BID [facility] Last Admin: 04/04/19 20:31 Dose: 12.5 mg Ondansetron HCl (Zofran) 4 mg IV Q6H PRN PRN Reason: Nausea/Vomiting Oxycodone HCl (Oxycodone) 5 mg PO Q4H PRN PRN Reason: Pain Oxycodone HCl (Oxycontin) 20 mg PO Q12HR [facility] Last Admin: 04/04/19 20:22 Dose: 20 mg Pregabalin (Lyrica) 150 mg PO TID [facility] Last Admin: 04/04/19 20:24 Dose: 150 mg Pregabalin (Lyrica) 50 mg PO TID [facility] Last Admin: 04/04/19 20:23 Dose: 50 mg Saccharomyces Boulardii (Florastor) 500 mg PO DAILY [facility] Last Admin: 04/04/19 09:24 Dose: 500 mg Senna/Docusate Sodium (Senna Plus) 1 tab PO BID PRN PRN Reason: Constipation Simvastatin (Zocor) 20 mg PO BEDTIME [facility] Last Admin: 04/04/19 20:24 Dose: 20 mg Simvastatin (Zocor) 10 mg PO BEDTIME [facility] Last Admin: 04/04/19 20:24 Dose: 10 mg Sodium Chloride (Saline Flush) 10 ml FLUSH ASDIRECTED PRN PRN Reason: Keep Vein Open Last Admin: 04/03/19 19:23 Dose: 10 ml Discontinued Medications Acetaminophen (Tylenol) 650 mg RECTAL NOW ONE Stop: 04/03/19 19:16 Last Admin: 04/03/19 19:23 Dose: 650 mg Aspirin (Halfprin) 81 mg PO DAILY [facility] Last Admin: 04/04/19 16:14 Dose: 81 mg Ceftriaxone Sodium (Rocephin) Confirm Administered Dose 2 gm IV .STK-MED ONE Stop: 04/03/19 19:20 Last Admin: 04/03/19 19:24 Dose: Not Given Ceftriaxone Sodium 2 gm/ (Sodium Chloride) 100 mls @ 200 mls/hr IV ONETIME ONE Stop: 04/03/19 19:43 Last Admin: 04/04/19 07:58 Dose: Not Given Ceftriaxone Sodium 2 gm/ (Sodium Chloride) 100 mls @ 200 mls/hr IV NOW STA Stop: 04/03/19 19:50 Last Admin: 04/03/19 19:23 Dose: 200 mls/hr Sodium Chloride (Normal Saline) Confirm Administered Dose 100 mls @ as directed .ROUTE .STK-MED ONE Stop: 04/03/19 19:20 Last Admin: 04/03/19 19:24 Dose: Not Given Ceftriaxone Sodium 1 gm/ (Sodium Chloride) 100 mls @ 200 mls/hr IV Q24H [facility] Last Admin: 04/04/19 18:00 Dose: 200 mls/hr Magnesium Sulfate 4 gm/ Premix 50 mls @ 12.5 mls/hr IV ONETIME ONE Stop: 04/04/19 12:44 Last Admin: 04/04/19 09:24 Dose: 12.5 mls/hr Sodium Chloride (Normal Saline) 500 mls @ 999 mls/hr IV .BOLUS ONE Stop: 04/04/19 12:27 Last Admin: 04/04/19 16:10 Dose: Not Given Lorazepam (Ativan) 0.5 mg IVPUSH ONETIME STA Stop: 04/04/19 00:15 Last Admin: 04/04/19 00:22 Dose: 0.5 mg Lorazepam (Ativan) 0.5 mg IVPUSH ONETIME ONE Stop: 04/04/19 00:17 Last Admin: 04/04/19 00:23 Dose: 0.5 mg Naloxone HCl (Narcan) 0.4 mg IVPUSH ONETIME ONE Stop: 04/03/19 23:17 Last Admin: 04/04/19 00:01 Dose: 0.4 mg Quetiapine Fumarate (Seroquel) 12.5 mg PO ONETIME ONE Stop: 04/04/19 00:47 Last Admin: 04/04/19 01:59 Dose: 12.5 mg - Exam General: Alert, Oriented, Cooperative, No Acute Distress HEENT: Pupils Equal, Pupils Reactive, EOMI, Mucous Membr. Moist/[place] Neck: Supple Lungs: Clear to Auscultation, Normal Respiratory Effort Cardiovascular: Regular Rate, Regular Rhythm GI/Abdominal Exam: Normal Bowel Sounds, Soft, Non-Tender, No Organomegaly, No Distention, No Abnormal Bruit (Female) Exam: Deferred Back Exam: Normal Inspection, Decreased Range of Motion Extremities: Normal Inspection, Normal Range of Motion, Non-Tender, Normal Capillary Refill, Pedal Edema (on left foot), Increased Warmth (lefy lower extremity), Redness (left leg: improved), Other (left lower leg trace edema) Peripheral Pulses: 2+: Dorsalis Pedis (L), Dorsalis Pedis (R) Skin: Warm, Dry, Intact Neurological: No New Focal Deficit. No: Normal Gait Psy/Mental Status: Alert, Normal Affect, Normal Mood - Problem List Review Problem List Initiated/Reviewed/Updated: Yes - My Orders Last 24 Hours: My Active Orders 04/04/19 07:00 Insulin Lispro [HumaLOG] See Protocol SUBCUT QIDACANDBED 04/04/19 09:00 Saccharomyces Boulardii [Florastor] 500 mg PO DAILY 04/04/19 11:00 Enoxaparin [Lovenox] 40 mg SUBCUT DAILY 04/04/19 18:53 HYDROmorphone [Dilaudid] 1 mg IVPUSH Q4H PRN oxyCODONE 5 mg PO Q4H PRN 04/04/19 21:00 Metoprolol Tartrate [Lopressor] 12.5 mg PO BID Pregabalin [Lyrica] 150 mg PO TID Pregabalin [Lyrica] 50 mg PO TID Simvastatin [Zocor] 10 mg PO BEDTIME Simvastatin [Zocor] 20 mg PO BEDTIME oxyCODONE ER [OxyCONTIN] 20 mg PO Q12HR 04/04/19 Breakfast Heart Healthy Diet [DIET] 04/05/19 06:00 cefTRIAXone [Rocephin] 1 gm Sodium Chloride 0.9% [Normal Saline] 100 ml IV Q12H 04/05/19 07:00 Levothyroxine 75 mcg PO DAILY@0700 04/05/19 08:00 Ang Head wo Cont [MR] Stat Ang Neck w Cont [MR] Stat Brain wo Cont [MR] Stat 04/05/19 09:00 Allopurinol [Zyloprim] 100 mg PO DAILY Aspirin [Halfprin] 81 mg PO DAILY DULoxetine [Cymbalta] 60 mg PO DAILY 04/05/19 18:00 Insulin Glarg,Human.Rec.Analog [LantUS] 28 unit SUBCUT QPM 04/06/19 05:11 BASIC METABOLIC PANEL,BMP [CHEM] AM C-REACTIVE PROTEIN [CHEM] AM CBC WITH AUTO DIFF [HEME] AM MAGNESIUM [CHEM] AM 04/07/19 05:11 BASIC METABOLIC PANEL,BMP [CHEM] AM C-REACTIVE PROTEIN [CHEM] AM CBC WITH AUTO DIFF [HEME] AM MAGNESIUM [CHEM] AM 04/08/19 05:11 BASIC METABOLIC PANEL,BMP [CHEM] AM C-REACTIVE PROTEIN [CHEM] AM CBC WITH AUTO DIFF [HEME] AM MAGNESIUM [CHEM] AM - Plan Plan:: Assessment: Acute: S/p AMS - She is at baseline - 2/2 Metabolic Encephalopathy - Negative Head CT scan - She appears to be back at baseline after her fentanyl patch was removed and received a dose of Narcan last night - Brain MRI and Head and Neck MRA: report read as no acute diffusion abnormalities seen/no additional abnormality is appreciated on MRI SSTI/right LE Cellulitis, Improved - She is diabetes - Continue IV Rocephin 1 gram BID Leukocytosis, Improving - WBC of 24.44--> 20.87-->12.69 - CRP of 7.7-->11.2 - Treat underlying cause S/p Hypomagnesemia - Mg of 1.4-->2.2 - Replete and monitor Class I Obesity - Dietary consult for weight management Chronic: HTN, HLD, Hypothyroidism, Gout, 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
[2019-04-05] MEDS: Enoxaparin 40 MG/0.4 ML Syringe SUBCUT SCH (10:06)
[2019-04-05] MEDS: Pregabalin 75 MG Cap PO SCH ×3 (10:08→20:38)
[2019-04-05] MEDS: Allopurinol 100 MG Tab PO SCH (10:08)
[2019-04-05] MEDS: DULoxetine 30 MG Cap PO SCH (10:08)
[2019-04-05] MEDS: Saccharomyces Boulardii (Probiotic) 250 MG Cap PO SCH (10:08)
[2019-04-05] MEDS: Pregabalin 25 MG Cap PO SCH ×3 (10:08→20:38)
[2019-04-05] MEDS: Aspirin 81 MG Tab.EC PO SCH (10:08)
[2019-04-05] MEDS: oxyCODONE ER 20 MG TAB.ER PO SCH ×2 (10:09→20:35)
[2019-04-05] MEDS: Metoprolol Tartrate 25 MG Tab PO SCH ×2 (10:09→20:34)
--- NOTE | 2019-04-05 10:50 | MR ---
MR angiogram of brain Technique: Multiple MR angiogram [id number] images were obtained. Study was centered to the deering of [place]. Multiple MIP images were then obtained in multiple projections. Findings: Both distal vertebral arteries and basilar artery are patent. Posterior cerebral arteries are also patent. No focal occlusions are seen. There is focal area of apparent narrowing within the carotid siphon on both sides. This narrows the lumen by slightly greater than 50% on the right side and about 50% on the left side. This is symmetric but I see no corresponding artifact as an etiology. Other portions of the anterior and middle cerebral arteries are patent. No focal occlusion is seen. No discrete aneurysm is appreciated. Impression: 1. Findings suspicious for focal areas of narrowing within the carotid siphon which is slightly greater than 50% on the right side and about 50% on the left side. 2. No additional abnormality is appreciated on MR angiogram of the brain. Diagnostic code #3
--- NOTE | 2019-04-05 10:50 | MR ---
MRI brain Technique: T1 sagittal; T2, T2 FLAIR, T1 and diffusion axial; T1 and T2 gradient echo coronal images were obtained of the brain. Comparison: Prior head CT study of 04/03/19. Findings: Ventricles along with basal cisterns and sulci over the convexities appear within normal limits for the patient's age. Normal signal void is seen within the major cerebral arteries within the skull base. Mild areas of increased signal are scattered within the periventricular white matter which are most likely due to small vessel ischemic demyelination change. No midline shift or mass effect is appreciated. No acute diffusion abnormalities are appreciated. Impression: 1. Mild areas of increased signal within the periventricular white matter which most likely represents small vessel ischemic demyelination change. 2. No acute diffusion abnormalities are seen. Diagnostic code #2
[2019-04-05] MEDS ORDERED: Insulin Glarg,Human.Rec.Analog 100 UNIT/ML ML SUBCUT SCH (18:00)
[2019-04-05] MEDS: Simvastatin 10 MG Tab PO SCH (20:35)
[2019-04-06] MEDS: cefTRIAXone 1 GM in Sodium Chloride 0.9% 100 ML IV SCH (06:04)
[2019-04-06] MEDS: Levothyroxine 75 MCG Tab PO SCH (06:04)
[2019-04-06] MEDS: Insulin Lispro 100 Units/ML 3 ML Vial SUBCUT SCH ×2 (06:31→11:34)
[2019-04-06 08:22] VITALS: BP 132/87
[2019-04-06] MEDS: Pregabalin 75 MG Cap PO SCH (08:42)
[2019-04-06] MEDS: Saccharomyces Boulardii (Probiotic) 250 MG Cap PO SCH (08:42)
[2019-04-06] MEDS: Aspirin 81 MG Tab.EC PO SCH (08:42)
[2019-04-06] MEDS: Allopurinol 100 MG Tab PO SCH (08:42)
[2019-04-06] MEDS: DULoxetine 30 MG Cap PO SCH (08:43)
[2019-04-06] MEDS: Pregabalin 25 MG Cap PO SCH (08:43)
[2019-04-06] MEDS: Metoprolol Tartrate 25 MG Tab PO SCH (08:43)
[2019-04-06 08:45] VITALS: PULSE 62
[2019-04-06] MEDS: Enoxaparin 40 MG/0.4 ML Syringe SUBCUT SCH (08:45)
[2019-04-06] MEDS: oxyCODONE ER 20 MG TAB.ER PO SCH (09:46)
--- NOTE | 2019-04-06 12:43 | PCM.DCSUM1 ---
Discharge Summary - Hospital Course HPI Initial Comments: This is a 74 yo with past medical hx/o HTN, HLD, Hypothyroidism, Gout, Chronic Pain Syndrome-Opioid Dependent, Back Pain S/p Stimulator Device Placement, Peripheral Neuropathy and Class I Obesity who presents to ED for evaluation of AMS. Her last known well was 9 AM yesterday. Her states that she did not wake up after laid down for a nap. He tried to wake her up but was difficult to arouse. He called EMS and she was brought over for evaluation of stroke. Her head CT scan revealed no acute intra-cranial abnormality. Her initial work up in ED showed a CBC remarkable for WBC of 24.44, Neutrophils of 86% and Lymphocytes of 11%. Her Chemistry was fairly unremarkable. Her UA was negative for UTI. Patient received initial treatment before she was sent to the unit for further treatment. She was primarily admitted for AMS and Right Lower Leg Cellulitis. Diagnosis: Stroke: No - Discharge Data Discharge Date: 04/06/19 Discharge Disposition: Home, Self-Care 01 Condition: Good - Referral to Home Health Primary Care Physician: Vikash Cortez MD - Patient Summary/Data Operative Procedure(s) Performed: None Complications: None Consults: Consultations 04/03/19 23:10 Consult to Case Management/Geographic Information Scientist [CONS] Routine Consult to Marketing Services Rep [CONS] Routine Consult to Spiritual Care [CONS] Routine OT Evaluation and Treatment [CONS] Routine PT Evaluation and Treatment [CONS] Routine Labs Pending at D/C: None Recommended Follow-up Testing/Procedures: None Planned Operative Procedure(s) after DC: None Hospital Course: Patient was primarily admitted for evaluation of unresponsiveness felt to be stroke but all her imaging studies (Head CT scan and MRI/MRA) revealed no acute intra-cranial abnormalities. However after reviewing her home medications, we strongly believed that her altered mental status was due to polypharmacy. This was evident when she woke up after she received a small dose of Narcan. Her hospital course was uncomplicated but she was found to have right lower leg cellulitis. She received intravenous antibacterial agent and was sent home with oral agent to complete a total of 5 day course of antibiotic treatment. Patient was educated about the synergistic effects of her Fentanyl, Lyrica and Cymbalta. We advised to cut her Fentanyl dose down to 25 from 50 mcg and possibly explore medical marijuana outpatient. She was further advised to follow up with her PCP after discharge. - Patient Instructions Diet: Usual Diet as Tolerated, Diabetic Diet Activity: As Tolerated Driving: Do Not Drive Showering/Bathing: May Shower Wound/Incision Care: Keep Operative Site/Wound Site Clean and Dry Notify Provider of: Fever, Increased Pain, Swelling and Redness, Drainage, Nausea and/or Vomiting Other/Special Instructions: - Please take all new medications as directed. - Resume routine home medications and activity as tolerated. - Call or follow up with your doctor for any concerns or issues after discharge. - Follow up with your doctor in 1 week. - Come back or seek immediate care should your symptoms persist or get worse - Discharge Plan *PRESCRIPTION DRUG MONITORING PROGRAM REVIEWED*: Not Applicable *COPY OF PRESCRIPTION DRUG MONITORING REPORT IN PATIENT MANISH: Not Applicable Prescriptions/Med Rec: Cephalexin [Keflex] 500 mg PO BID #8 capsule Saccharomyces Boulardii [Florastor] 250 mg PO BID #10 capsule Home Medications: Home Meds Pregabalin [Lyrica] 200 mg PO TID 07/03/14 [History] metFORMIN [Glucophage] 1,500 mg PO DAILY 07/03/14 [History] Insulin Glarg,Human.Rec.Analog [Lantus] 28 unit SUBCUT QPM 07/04/14 [History] Allopurinol [Zyloprim] 100 mg PO DAILY 08/01/17 [History] Levothyroxine 75 mg PO DAILY 08/01/17 [History] Metoprolol Tartrate 12.5 mg PO BID 08/01/17 [History] Simvastatin [Zocor] 10 mg PO BEDTIME 08/01/17 [History] Folic Acid 0.8 mg PO DAILY 04/03/19 [History] Garlic [Garlic Oil] 1,000 mg PO DAILY 04/03/19 [History] DULoxetine [Cymbalta] 60 mg PO DAILY 04/04/19 [History] Cephalexin [Keflex] 500 mg PO BID #8 capsule 04/06/19 [Rx] Saccharomyces Boulardii [Florastor] 250 mg PO BID #10 capsule 04/06/19 [Rx] fentaNYL [Duragesic] 25 mcg TRDERM ASDIRECTED #0 04/06/19 [Rx] Oxygen Therapy Mode: Room Air Patient Handouts: Confusion, Opioid Pain Medicine Information, Pain Medicine Instructions, [id number], Erysipelas Referrals: Vikash Cortez MD [Primary Care Provider] - - Discharge Summary/Plan Comment DC Time >30 min.: No Discharge Summary/Plan Comment: Discharge to Home - General Info Date of Service: 04/06/19 Admission Dx/Problem (Free Text: Admission Diagnosis/Problem Admission Diagnosis/Problem Altered mental status Subjective Update: Follow Up Functional Status: Reports: Pain Controlled, Tolerating Diet, Ambulating, Urinating, New Symptoms. Denies: Incentive Spirometry - Review of Systems General: Denies: Fever, Weakness, Fatigue, Malaise, Chills HEENT: Reports: No Symptoms Pulmonary: Denies: Shortness of Breath, Pleuritic Chest Pain Cardiovascular: Denies: Chest Pain, Dyspnea on Exertion, Orthopnea, Lightheadedness, Other Gastrointestinal: Denies: Abdominal Pain, Nausea, Vomiting Genitourinary: Denies: Dysuria, Urgency Musculoskeletal: Reports: Back Pain. Denies: Neck Pain, Shoulder Pain Skin: Reports: No Symptoms Neurological: Denies: Confusion, Difficulty Walking, Weakness Psychiatric: Denies: Depression, Mood Lability, Anxiety, Agitation, Cravings, Hallucinations, Suicidal Ideation - Patient Data Vitals - Most Recent: Last Vital Signs Temp 36.3 C 04/06/19 08:22 Pulse 62 04/06/19 08:43 Resp 16 04/06/19 08:22 BP 132/87 04/06/19 08:43 Pulse Ox 97 04/06/19 08:22 Weight - Most Recent: 100.516 kg I&O - Last 24 hours: Intake & Output 04/05/19 04/06/19 04/06/19 22:59 06:59 14:59 Intake Total 1600 550 420 Output Total 1400 300 Balance 200 250 420 Lab Results - Last 24 hrs: Laboratory Results - last 24 hr 04/05/19 04/05/19 04/05/19 Range/Units 12:45 17:36 20:19 WBC (3.98-10.04) K/mm3 RBC (3.98-5.22) M/mm3 Hgb (11.2-15.7) gm/dl Hct (34.1-44.9) % MCV (79.4-94.8) fl MCH (25.6-32.2) pg MCHC (32.2-35.5) g/dl RDW Std Deviation (36.4-46.3) fL Plt Count (182-369) K/mm3 MPV (9.4-12.3) fl Neut % (Auto) (34.0-71.1) % Lymph % (Auto) (19.3-51.7) % Allen % (Auto) (4.7-12.5) % Eos % (Auto) (0.7-5.8) Baso % (Auto) (0.1-1.2) % Neut # (Auto) (1.56-6.13) K/mm3 Lymph # (Auto) (1.18-3.74) K/mm3 Allen # (Auto) (0.24-0.36) K/mm3 Eos # (Auto) (0.04-0.36) K/mm3 Baso # (Auto) (0.01-0.08) K/mm3 Sodium (136-145) mEq/L Potassium (3.5-5.1) mEq/L Chloride (98-107) mEq/L Carbon Dioxide (21-32) mEq/L Anion Gap (5-15) BUN (7-18) mg/dL Creatinine (0.55-1.02) mg/dL Est Cr Clr Drug Dosing mL/min Estimated GFR (MDRD) (>60) mL/min BUN/Creatinine Ratio (14-18) Glucose (83-115) mg/dL POC Glucose 211 H 144 H 201 H (83-110) mg/dL Calcium (8.5-10.1) mg/dL Magnesium (1.8-2.4) mg/dl C-Reactive Protein (<1.0) mg/dL 04/06/19 04/06/19 04/06/19 Range/Units 04:20 04:20 06:03 WBC 10.67 H (3.98-10.04) K/mm3 RBC 3.93 L (3.98-5.22) M/mm3 Hgb 11.6 (11.2-15.7) gm/dl Hct 36.2 (34.1-44.9) % MCV 92.1 (79.4-94.8) fl MCH 29.5 (25.6-32.2) pg MCHC 32.0 L (32.2-35.5) g/dl RDW Std Deviation 47.1 H (36.4-46.3) fL Plt Count 225 (182-369) K/mm3 MPV 10.9 (9.4-12.3) fl Neut % (Auto) 44.8 (34.0-71.1) % Lymph % (Auto) 42.3 (19.3-51.7) % Allen % (Auto) 9.2 (4.7-12.5) % Eos % (Auto) 3.2 (0.7-5.8) Baso % (Auto) 0.3 (0.1-1.2) % Neut # (Auto) 4.79 (1.56-6.13) K/mm3 Lymph # (Auto) 4.51 H (1.18-3.74) K/mm3 Allen # (Auto) 0.98 H (0.24-0.36) K/mm3 Eos # (Auto) 0.34 (0.04-0.36) K/mm3 Baso # (Auto) 0.03 (0.01-0.08) K/mm3 Sodium 142 (136-145) mEq/L Potassium 4.0 (3.5-5.1) mEq/L Chloride 107 (98-107) mEq/L Carbon Dioxide 26 (21-32) mEq/L Anion Gap 13.0 (5-15) BUN 15 (7-18) mg/dL Creatinine 0.9 (0.55-1.02) mg/dL Est Cr Clr Drug Dosing 53.86 mL/min Estimated GFR (MDRD) > 60 (>60) mL/min BUN/Creatinine Ratio 16.7 (14-18) Glucose 105 (83-115) mg/dL POC Glucose 104 (83-110) mg/dL Calcium 8.7 (8.5-10.1) mg/dL Magnesium 2.1 (1.8-2.4) mg/dl C-Reactive Protein 6.2 H* (<1.0) mg/dL 04/06/19 Range/Units 11:24 WBC (3.98-10.04) K/mm3 RBC (3.98-5.22) M/mm3 Hgb (11.2-15.7) gm/dl Hct (34.1-44.9) % MCV (79.4-94.8) fl MCH (25.6-32.2) pg MCHC (32.2-35.5) g/dl RDW Std Deviation (36.4-46.3) fL Plt Count (182-369) K/mm3 MPV (9.4-12.3) fl Neut % (Auto) (34.0-71.1) % Lymph % (Auto) (19.3-51.7) % Allen % (Auto) (4.7-12.5) % Eos % (Auto) (0.7-5.8) Baso % (Auto) (0.1-1.2) % Neut # (Auto) (1.56-6.13) K/mm3 Lymph # (Auto) (1.18-3.74) K/mm3 Allen # (Auto) (0.24-0.36) K/mm3 Eos # (Auto) (0.04-0.36) K/mm3 Baso # (Auto) (0.01-0.08) K/mm3 Sodium (136-145) mEq/L Potassium (3.5-5.1) mEq/L Chloride (98-107) mEq/L Carbon Dioxide (21-32) mEq/L Anion Gap (5-15) BUN (7-18) mg/dL Creatinine (0.55-1.02) mg/dL Est Cr Clr Drug Dosing mL/min Estimated GFR (MDRD) (>60) mL/min BUN/Creatinine Ratio (14-18) Glucose (83-115) mg/dL POC Glucose 184 H (83-110) mg/dL Calcium (8.5-10.1) mg/dL Magnesium (1.8-2.4) mg/dl C-Reactive Protein (<1.0) mg/dL STEWATR Results - Last 24 hrs: Microbiology 04/03/19 19:20 Aerobic Blood Culture - Preliminary Blood NO GROWTH AFTER 2 DAYS Anaerobic Blood Culture - Preliminary NO GROWTH AFTER 2 DAYS 04/03/19 18:46 Aerobic Blood Culture - Preliminary Blood NO GROWTH AFTER 2 DAYS Anaerobic Blood Culture - Preliminary NO GROWTH AFTER 2 DAYS 04/03/19 18:55 Urine Culture - Final Urine, Catheterized NO GROWTH AFTER 2 DAYS Med Orders - Current: Current Medications Albuterol/Ipratropium (Duoneb 3.0-0.5 Mg/3 Ml) 3 ml NEB Q4H PRN PRN Reason: Shortness Of Breath/wheezing Allopurinol (Zyloprim) 100 mg PO DAILY [facility] [place] Last Admin: 04/06/19 08:42 Dose: 100 mg Aspirin (Halfprin) 81 mg PO DAILY [facility] [place] Last Admin: 04/06/19 08:42 Dose: 81 mg Bisacodyl (Dulcolax) 5 mg PO DAILY PRN PRN Reason: Constipation Dextrose/Water (Dextrose 50% In Water) 50 ml IVPUSH ASDIRECTED PRN PRN Reason: Hypoglycemia Docusate Sodium (Colace) 100 mg PO BID PRN PRN Reason: Constipation Duloxetine HCl (Cymbalta) 60 mg PO DAILY [facility] [place] Last Admin: 04/06/19 08:43 Dose: 60 mg Enoxaparin Sodium (Lovenox) 40 mg SUBCUT DAILY [facility] [place] Last Admin: 04/06/19 08:45 Dose: 40 mg Hydromorphone HCl (Dilaudid) 1 mg IVPUSH Q4H PRN PRN Reason: Pain (severe 7-10) Promethazine HCl 6.25 mg/ (Sodium Chloride) 50.25 mls @ 100 mls/hr IV Q6H PRN PRN Reason: Nausea/Vomiting Ceftriaxone Sodium 1 gm/ (Sodium Chloride) 100 mls @ 200 mls/hr IV Q12H [facility] [place] Last Admin: 04/06/19 06:04 Dose: 200 mls/hr Insulin Glargine (Lantus) 28 unit SUBCUT QPM [facility] [place] Last Admin: 04/05/19 17:46 Dose: 28 units Insulin Human Lispro (Humalog) 0 unit SUBCUT QIDACANDBED [facility] [place]; Protocol Last Admin: 04/06/19 11:34 Dose: 1 units Levothyroxine Sodium (Levothyroxine) 75 mcg PO DAILY@0700 [facility] [place] Last Admin: 04/06/19 06:04 Dose: 75 mcg Metoprolol Tartrate (Lopressor) 12.5 mg PO BID [facility] [place] Last Admin: 04/06/19 08:43 Dose: 12.5 mg Ondansetron HCl (Zofran) 4 mg IV Q6H PRN PRN Reason: Nausea/Vomiting Oxycodone HCl (Oxycodone) 5 mg PO Q4H PRN PRN Reason: Pain Oxycodone HCl (Oxycontin) 20 mg PO Q12HR [facility] [place] Last Admin: 04/06/19 09:46 Dose: Not Given Pregabalin (Lyrica) 150 mg PO TID [facility] [place] Last Admin: 04/06/19 08:42 Dose: 150 mg Pregabalin (Lyrica) 50 mg PO TID [facility] [place] Last Admin: 04/06/19 08:43 Dose: 50 mg Saccharomyces Boulardii (Florastor) 500 mg PO DAILY [facility] [place] Last Admin: 04/06/19 08:42 Dose: 500 mg Senna/Docusate Sodium (Senna Plus) 1 tab PO BID PRN PRN Reason: Constipation Simvastatin (Zocor) 10 mg PO BEDTIME [facility] [place] Last Admin: 04/05/19 20:35 Dose: 10 mg Sodium Chloride (Saline Flush) 10 ml FLUSH ASDIRECTED PRN PRN Reason: Keep Vein Open Last Admin: 04/03/19 19:23 Dose: 10 ml Discontinued Medications Acetaminophen (Tylenol) 650 mg RECTAL NOW ONE Stop: 04/03/19 19:16 Last Admin: 04/03/19 19:23 Dose: 650 mg Aspirin (Halfprin) 81 mg PO DAILY [facility] [place] Last Admin: 04/04/19 16:14 Dose: 81 mg Ceftriaxone Sodium (Rocephin) Confirm Administered Dose 2 gm IV .STK-MED ONE Stop: 04/03/19 19:20 Last Admin: 04/03/19 19:24 Dose: Not Given Sodium Chloride (Normal Saline) 1,000 mls @ 999 mls/hr IV ONETIME [facility] [place] Last Admin: 04/03/19 19:15 Dose: 999 mls/hr Sodium Chloride (Normal Saline) 1,000 mls @ 999 mls/hr IV ONETIME [facility] [place] Ceftriaxone Sodium 2 gm/ (Sodium Chloride) 100 mls @ 200 mls/hr IV ONETIME ONE Stop: 04/03/19 19:43 Last Admin: 04/04/19 07:58 Dose: Not Given Ceftriaxone Sodium 2 gm/ (Sodium Chloride) 100 mls @ 200 mls/hr IV NOW STA Stop: 04/03/19 19:50 Last Admin: 04/03/19 19:23 Dose: 200 mls/hr Sodium Chloride (Normal Saline) Confirm Administered Dose 100 mls @ as directed .ROUTE .STK-MED ONE Stop: 04/03/19 19:20 Last Admin: 04/03/19 19:24 Dose: Not Given Sodium Chloride (Normal Saline) 1,000 mls @ 100 mls/hr IV ASDIRECTED [facility] [place] Last Admin: 04/04/19 13:01 Dose: 100 mls/hr Ceftriaxone Sodium 1 gm/ (Sodium Chloride) 100 mls @ 200 mls/hr IV Q24H [facility] [place] Last Admin: 04/04/19 18:00 Dose: 200 mls/hr Magnesium Sulfate 4 gm/ Premix 50 mls @ 12.5 mls/hr IV ONETIME ONE Stop: 04/04/19 12:44 Last Admin: 04/04/19 09:24 Dose: 12.5 mls/hr Sodium Chloride (Normal Saline) 500 mls @ 999 mls/hr IV .BOLUS ONE Stop: 04/04/19 12:27 Last Admin: 04/04/19 16:10 Dose: Not Given Lorazepam (Ativan) 0.5 mg IVPUSH ONETIME STA Stop: 04/04/19 00:15 Last Admin: 04/04/19 00:22 Dose: 0.5 mg Lorazepam (Ativan) 0.5 mg IVPUSH ONETIME ONE Stop: 04/04/19 00:17 Last Admin: 04/04/19 00:23 Dose: 0.5 mg Naloxone HCl (Narcan) 0.4 mg IVPUSH ONETIME ONE Stop: 04/03/19 23:17 Last Admin: 04/04/19 00:01 Dose: 0.4 mg Quetiapine Fumarate (Seroquel) 12.5 mg PO ONETIME ONE Stop: 04/04/19 00:47 Last Admin: 04/04/19 01:59 Dose: 12.5 mg Simvastatin (Zocor) 20 mg PO BEDTIME [facility] [place] Last Admin: 04/04/19 20:24 Dose: 20 mg - Exam General: Reports: Alert, Oriented, Cooperative HEENT: Reports: Pupils Equal, Pupils Reactive, EOMI, Mucous Membr. Moist/[place] Neck: Reports: Supple Lungs: Reports: Normal Respiratory Effort Cardiovascular: Reports: Regular Rate, Regular Rhythm GI/Abdominal Exam: Normal Bowel Sounds, Soft, Non-Tender, No Organomegaly, No Distention, No Abnormal Bruit, No Mass, Other (Obese) (Female) Exam: Deferred Rectal (Female) Exam: Deferred Back Exam: Reports: Normal Inspection, Decreased Range of Motion, Other (Spinal stimulator device) Extremities: Normal Inspection, Normal Range of Motion, Non-Tender, No Pedal Edema, Normal Capillary Refill Skin: Reports: Warm, Dry, Intact Wound/Incisions: Reports: Erythema Improving (on right lower extermity) Neurological: Reports: No New Focal Deficit Psy/Mental Status: Reports: Alert, Normal Affect, Normal Mood
== END 2019-04-06 13:00 | disposition home or self-care (01) | DRG 637 ==
LOC: JD.ED 18:07 → JD.ICU 04-04 00:46
PROVIDERS: ADMIT Internal Medicine; ATTEND Internal Medicine
DX: E11.628 Type 2 diabetes mellitus with other skin complications (principal); G93.41 Metabolic encephalopathy; L03.115 Cellulitis of right lower limb; R41.82 Altered mental status, unspecified; F11.20 Opioid dependence, uncomplicated; R47.9 Unspecified speech disturbances; E78.5 Hyperlipidemia, unspecified; R50.9 Fever, unspecified; E11.9 Type 2 diabetes mellitus without complications; G89.4 Chronic pain syndrome; M54.9 Dorsalgia, unspecified; E66.9 Obesity, unspecified; I10 Essential (primary) hypertension; G62.9 Polyneuropathy, unspecified; E03.9 Hypothyroidism, unspecified; M10.9 Gout, unspecified; E78.00 Pure hypercholesterolemia, unspecified; F32.9 Major depressive disorder, single episode, unspecified; E83.42 Hypomagnesemia; Z79.4 Long term (current) use of insulin; Z87.442 Personal history of urinary calculi; Z90.710 Acquired absence of both cervix and uterus; Z90.49 Acquired absence of other specified parts of digestive tract; Z46.2 Encounter for fitting and adjustment of other devices related to nervous system and special senses; Z79.84 Long term (current) use of oral hypoglycemic drugs; Z68.33 Body mass index [BMI] 33.0-33.9, adult; Z79.899 Other long term (current) drug therapy
CPT/HCPCS: 36415; 70450; 71045; 80053; 81001; 82962 ×2; 83605; 84484; 85007; 85027; 87040 ×2; 87086; 93005; 96365; 96375; 99285; A9270; J0696; J2060 ×2; J2310; J7030; J7040; 70544; 70544-26; 70551; 70551-26; 80048; 80061; 83735; 85025; 86140; 97110-GO; 97116-GP; 97162-GP; 97165-GO; 97530-GP; 97535-GO; 99284; J1650; J1815-GY; J3475

== ENCOUNTER 2021-02-23 12:24 | Inpatient (IN) | payer MEDICARE, BC ==
--- NOTE | 2021-02-23 13:16 | EDM.PDOC ---
ED HPI GENERAL MEDICAL PROBLEM - General Chief Complaint: Neuro Symptoms/Deficits Stated Complaint: CONFUSED,HEADACHE,DIZZY Time Seen by Provider: 02/23/21 13:14 - History of Present Illness INITIAL COMMENTS - FREE TEXT/NARRATIVE: 75-year-old female presents the emergency room just not feeling right. According to the patient's she has been a little unsteady on her feet and does not answer questions as quickly as she normally does. Her speech is not altered. The patient denies any weakness. She just states she is not herself. She denies any painful areas. She does not have a cough no chest pain no chest pressure no breathing difficulties or shortness of breath. The patient has had episodes like this secondary to infections in the past. The patient is a diabetic. - Related Data Allergies Allergy/AdvReac Type Severity Reaction Status Date / Time No Known Allergies Allergy Verified 02/23/21 13:02 Home Meds: Home Meds Pregabalin [Lyrica] 200 mg PO TID 07/03/14 [History] metFORMIN [Glucophage] 1,500 mg PO DAILY 07/03/14 [History] Insulin Glarg,Human.Rec.Analog [Lantus] 28 unit SUBCUT QPM 07/04/14 [History] Levothyroxine 75 mg PO DAILY 08/01/17 [History] Metoprolol Tartrate 12.5 mg PO BID 08/01/17 [History] Simvastatin [Zocor] 10 mg PO BEDTIME 08/01/17 [History] allopurinoL [Zyloprim] 100 mg PO DAILY 08/01/17 [History] Folic Acid 0.8 mg PO DAILY 04/03/19 [History] Garlic [Garlic Oil] 1,000 mg PO DAILY 04/03/19 [History] DULoxetine [Cymbalta] 60 mg PO DAILY 04/04/19 [History] Saccharomyces Boulardii [Florastor] 250 mg PO BID #10 capsule 04/06/19 [Rx] cephALEXin [Keflex] 500 mg PO BID #8 capsule 04/06/19 [Rx] fentaNYL [Duragesic] 25 mcg TRDERM ASDIRECTED #0 04/06/19 [Rx] Past Medical History HEENT History: Reports: Impaired Vision Cardiovascular History: Reports: High Cholesterol, Hypertension Genitourinary History: Reports: Renal Calculus Musculoskeletal History: Reports: Gout Neurological History: Reports: Neuropathy, Peripheral Psychiatric History: Reports: Depression Endocrine/Metabolic History: Reports: Diabetes, Type II, Hypothyroidism Hematologic History: Reports: None - Infectious Disease History Infectious Disease History: Reports: Chicken Pox, Measles - Past Surgical History HEENT Surgical History: Reports: Cataract Surgery, Oral Surgery GI Surgical History: Reports: Appendectomy Female Surgical History: Reports: Hysterectomy Musculoskeletal Surgical History: Reports: Other (See Below) Other Musculoskeletal Surgeries/Procedures:: left ankle surgery Social & Family History - Family History Family Medical History: No Pertinent Family History - Caffeine Use Caffeine Use: Reports: Coffee ED ROS GENERAL - Review of Systems Review Of Systems: See Below Constitutional: Reports: No Symptoms. Denies: Fever, Chills HEENT: Reports: No Symptoms Respiratory: Reports: No Symptoms Cardiovascular: Reports: No Symptoms Endocrine: Reports: No Symptoms GI/Abdominal: Reports: No Symptoms : Reports: No Symptoms Musculoskeletal: Reports: No Symptoms Skin: Reports: Other (She was concerned about the possibility of infection underneath her right foot but could not get into see Dr. De La Cruz for this) Psychiatric: Reports: No Symptoms Hematologic/Lymphatic: Reports: No Symptoms ED EXAM, GENERAL - Physical Exam Exam: See Below Exam Limited By: No Limitations General Appearance: Alert, No Apparent Distress Eye Exam: Bilateral Eye: EOMI, Normal Inspection, PERRL Ears: Normal External Exam, Normal Canal, Hearing Grossly Normal, Normal TMs Nose: Normal Inspection, Normal Mucosa, No Blood Throat/Mouth: Normal Inspection, Normal Lips, Normal Teeth, Normal Gums, Normal Oropharynx, Normal Voice, No Airway Compromise Head: Atraumatic, Normocephalic Neck: Normal Inspection, Supple, Non-Tender, Full Range of Motion. No: Lymphadenopathy (L), Lymphadenopathy (R) Respiratory/Chest: No Respiratory Distress, Lungs Clear, Normal Breath Sounds Cardiovascular: Regular Rate, Rhythm, No Edema, No Murmur GI/Abdominal: Normal Bowel Sounds, Soft, Non-Tender Back Exam: Normal Inspection. No: CVA Tenderness (L), CVA Tenderness (R) Extremities: Other (She has a developing cellulitis in her right lower leg and foot this feels quite warm and red. She has a break in the skin underneath her first metatarsal phalangeal joint) Neurological: Alert, Oriented, Normal Cognition, No Motor/Sensory Deficits, Other (This time she seems to be answering questions appropriately and follows directions without difficulty) Lymphatic: No Adenopathy #1 Interpretation EKG Date: 02/23/21 Rhythm: NSR Bernard: Normal P-Wave: Present QRS: Other (Q waves noted in lead III) ST-T: Other (Nondiagnostic changes unchanged from prior study) QT: Normal Comparison: No Change (No significant change from 04/03/2019) EKG Interpretation Comments: Abnormal EKG Course - Vital Signs Last Recorded V/S: Last Vital Signs Temp 37.4 C 02/23/21 12:25 Pulse 68 02/23/21 12:25 Resp 16 02/23/21 12:25 BP 139/57 L 02/23/21 12:25 Pulse Ox 89 L 02/23/21 12:25 - Orders/Labs/Meds Orders: Active Orders 24 hr Category Date Time Status EKG Documentation Completion [RC] STAT Care 02/23/21 13:36 Active Head wo Cont [CT] Stat Exams 02/23/21 13:36 Taken BLOOD CULTURE [MREF] Stat Lab 02/23/21 14:03 Received BLOOD CULTURE [MREF] Stat Lab 02/23/21 14:15 Received Lactated Ringers [Ringers, Lactated] 1,000 ml Med 02/23/21 17:00 Active IV ASDIRECTED Vancomycin 1.5 gm Med 02/23/21 17:15 Active Sodium Chloride 0.9% [Normal Saline] 500 ml IV ONETIME Blood Culture x2 Reflex Set [OM.PC] Stat Oth 02/23/21 13:36 Ordered Medication Orders Lactated Ringer's (Ringers, Lactated) 1,000 mls @ 125 mls/hr IV ASDIRECTED HELENE Last Admin: 02/23/21 18:20 Dose: 125 mls/hr Documented by: KELY Vancomycin HCl 1.5 gm/ Sodium (Chloride) 500 mls @ 333.333 mls/hr IV ONETIME ONE Stop: 02/23/21 18:44 Last Admin: 02/23/21 18:22 Dose: 333.333 mls/hr Documented by: KELY Labs: Laboratory Tests 02/23/21 02/23/21 02/23/21 Range/Units 13:05 13:20 13:20 WBC (3.98-10.04) K/mm3 RBC (3.98-5.22) M/mm3 Hgb (11.2-15.7) gm/dl Hct (34.1-44.9) % MCV (79.4-94.8) fl MCH (25.6-32.2) pg MCHC (32.2-35.5) g/dl RDW Std Deviation (36.4-46.3) fL Plt Count (182-369) K/mm3 MPV (9.4-12.3) fl Neutrophils % (Manual) (40-60) % Band Neutrophils % (0-10) % Lymphocytes % (Manual) (20-40) % Atypical Lymphs % % Monocytes % (Manual) (2-10) % Eosinophils % (Manual) (0.7-5.8) % Basophils % (Manual) (0.1-1.2) Platelet Estimate Plt Morphology Comment RBC Morph Comment PT 11.5 (9.7-12.0) SECONDS INR 1.08 APTT 26.9 (21.7-31.4) SECONDS Sodium 138 (136-145) mEq/L Potassium 4.1 (3.5-5.1) mEq/L Chloride 99 (98-107) mEq/L Carbon Dioxide 29 (21-32) mEq/L Anion Gap 14.1 (5-15) BUN 21 H (7-18) mg/dL Creatinine 1.3 H (0.55-1.02) mg/dL Est Cr Clr Drug Dosing 35.24 mL/min Estimated GFR (MDRD) 40 (>60) mL/min BUN/Creatinine Ratio 16.2 (14-18) Glucose 160 H (70-99) mg/dL POC Glucose (70-99) mg/dL Lactic Acid (0.4-2.0) mmol/L Calcium 8.8 (8.5-10.1) mg/dL Total Bilirubin 0.6 (0.2-1.0) mg/dL AST 12 L (15-37) U/L ALT 18 (14-59) U/L Alkaline Phosphatase 52 (46-116) U/L Troponin I < 0.017 (0.00-0.056) ng/mL Total Protein 7.5 (6.4-8.2) g/dl Albumin 3.4 (3.4-5.0) g/dl Globulin 4.1 gm/dL Albumin/Globulin Ratio 0.8 L (1-2) Urine Color Yellow (Yellow) Urine Appearance Clear (Clear) Urine pH 6.0 (5.0-8.0) Ur Specific [place] 1.025 (1.005-1.030) Urine Protein Trace H (Negative) Urine Glucose (UA) Trace H (Negative) Urine Ketones Negative (Negative) Urine Occult Blood Negative (Negative) Urine Nitrite Negative (Negative) Urine Bilirubin Negative (Negative) Urine Urobilinogen 0.2 (0.2-1.0) Ur Leukocyte Esterase Negative (Negative) Urine RBC 0-5 (0-5) /hpf Urine WBC 0-5 (0-5) /hpf Ur Squamous Epith Cells 5-10 H (0-5) /hpf Urine Bacteria Many H (FEW) /hpf Urine Mucus Many H (FEW) /hpf 02/23/21 02/23/21 02/23/21 Range/Units 13:20 13:22 14:03 WBC 22.53 H (3.98-10.04) K/mm3 RBC 3.98 (3.98-5.22) M/mm3 Hgb 12.2 (11.2-15.7) gm/dl Hct 37.3 (34.1-44.9) % MCV 93.7 (79.4-94.8) fl MCH 30.7 (25.6-32.2) pg MCHC 32.7 (32.2-35.5) g/dl RDW Std Deviation 47.2 H (36.4-46.3) fL Plt Count 207 (182-369) K/mm3 MPV 10.7 (9.4-12.3) fl Neutrophils % (Manual) 64 H (40-60) % Band Neutrophils % 16 H (0-10) % Lymphocytes % (Manual) 13 L (20-40) % Atypical Lymphs % 0 % Monocytes % (Manual) 6 (2-10) % Eosinophils % (Manual) 0 L (0.7-5.8) % Basophils % (Manual) 1 (0.1-1.2) Platelet Estimate Adequate Plt Morphology Comment Normal RBC Morph Comment Normal PT (9.7-12.0) SECONDS INR APTT (21.7-31.4) SECONDS Sodium (136-145) mEq/L Potassium (3.5-5.1) mEq/L Chloride (98-107) mEq/L Carbon Dioxide (21-32) mEq/L Anion Gap (5-15) BUN (7-18) mg/dL Creatinine (0.55-1.02) mg/dL Est Cr Clr Drug Dosing mL/min Estimated GFR (MDRD) (>60) mL/min BUN/Creatinine Ratio (14-18) Glucose (70-99) mg/dL POC Glucose 164 H (70-99) mg/dL Lactic Acid 2.0 (0.4-2.0) mmol/L Calcium (8.5-10.1) mg/dL Total Bilirubin (0.2-1.0) mg/dL AST (15-37) U/L ALT (14-59) U/L Alkaline Phosphatase (46-116) U/L Troponin I (0.00-0.056) ng/mL Total Protein (6.4-8.2) g/dl Albumin (3.4-5.0) g/dl Globulin gm/dL Albumin/Globulin Ratio (1-2) Urine Color (Yellow) Urine Appearance (Clear) Urine pH (5.0-8.0) Ur Specific [place] (1.005-1.030) Urine Protein (Negative) Urine Glucose (UA) (Negative) Urine Ketones (Negative) Urine Occult Blood (Negative) Urine Nitrite (Negative) Urine Bilirubin (Negative) Urine Urobilinogen (0.2-1.0) Ur Leukocyte Esterase (Negative) Urine RBC (0-5) /hpf Urine WBC (0-5) /hpf Ur Squamous Epith Cells (0-5) /hpf Urine Bacteria (FEW) /hpf Urine Mucus (FEW) /hpf Meds: Medications Generic Name Dose Route Start Last Admin Trade Name Freq PRN Reason Stop Dose Admin Lactated Ringer's 1,000 mls @ 125 mls/hr 02/23/21 17:00 02/23/21 18:20 Ringers, Lactated IV 125 mls/hr ASDIRECTED HELENE Administration Vancomycin HCl 1.5 gm/ Sodium 500 mls @ 333.333 mls/hr 02/23/21 17:15 02/23/21 18:22 Chloride IV 02/23/21 18:44 333.333 mls/hr ONETIME ONE Administration Discontinued Medications Generic Name Dose Route Start Last Admin Trade Name Freq PRN Reason Stop Dose Admin Piperacillin Sod/Tazobactam 100 mls @ 25 mls/hr 02/23/21 16:58 02/23/21 17:34 Sod 4.5 gm/ Sodium Chloride IV 02/23/21 20:57 Not Given ONETIME ONE Piperacillin Sod/Tazobactam 100 mls @ 200 mls/hr 02/23/21 17:32 02/23/21 17:35 Sod 4.5 gm/ Sodium Chloride IV 02/23/21 18:01 200 mls/hr ONETIME ONE Administration Vancomycin HCl 1 dose 02/23/21 17:00 Pharmacy To Dose - Vancomycin .XX ASDIRECTED [facility], [facility] - Re-Assessments/Exams Free Text/Narrative Re-Assessment/Exam: 02/23/21 18:[address] was unremarkable for any acute changes chest x-ray no acute changes urinalysis does not suggest an infectious process. X-ray of her right foot show some suspected old erosions at the the base of the proximal phalanx. She is got an obvious cellulitis developing. The patient is started on Zosyn 4.5 g first dose given Case was discussed with Dr. Parkinson, our hospitalist who will assume care. Departure - Departure Time of Disposition: 18:25 Disposition: Admitted As Inpatient 64 Clinical Impression: Cellulitis of right lower leg - Discharge Information Referrals: Vikash Cortez MD [Primary Care Provider] - Forms: ED Department Discharge Sepsis Event Note (ED) - Evaluation Sepsis Screening Result: No Definite Risk - Focused Exam Vital Signs: Vital Signs Temp Pulse Resp BP Pulse Ox 02/23/21 12:25 37.4 C 68 16 139/57 L 89 L - My Orders Last 24 Hours: My Active Orders 02/23/21 13:36 EKG Documentation Completion [RC] STAT Head wo Cont [CT] Stat Blood Culture x2 Reflex Set [OM.PC] Stat 02/23/21 14:03 BLOOD CULTURE [MREF] Stat 02/23/21 14:15 BLOOD CULTURE [MREF] Stat 02/23/21 17:00 Lactated Ringers [Ringers, Lactated] 1,000 ml IV ASDIRECTED 02/23/21 17:15 Vancomycin 1.5 gm Sodium Chloride 0.9% [Normal Saline] 500 ml IV ONETIME - Assessment/Plan Last 24 Hours: My Active Orders 02/23/21 13:36 EKG Documentation Completion [RC] STAT Head wo Cont [CT] Stat Blood Culture x2 Reflex Set [OM.PC] Stat 02/23/21 14:03 BLOOD CULTURE [MREF] Stat 02/23/21 14:15 BLOOD CULTURE [MREF] Stat 02/23/21 17:00 Lactated Ringers [Ringers, Lactated] 1,000 ml IV ASDIRECTED 02/23/21 17:15 Vancomycin 1.5 gm Sodium Chloride 0.9% [Normal Saline] 500 ml IV ONETIME
--- NOTE | 2021-02-23 15:45 | CR ---
Chest: Portable view of the chest was obtained. Comparison: Prior chest x-ray of 04/03/19. Heart size and mediastinum are normal. Lungs are clear with no acute parenchymal change. No acute osseous abnormality is appreciated. Electrostimulating wires are seen within the lower thoracic spine. Impression: 1. Findings as noted above. 2. Nothing acute is seen on portable chest x-ray. Diagnostic code #2
--- NOTE | 2021-02-23 15:46 | CR ---
Right foot: 4 views of the right foot were obtained. Comparison: No prior foot study. Soft tissue swelling is seen. Plantar spur is noted. Small spur is noted at the attachment of the Achilles tendon. Minimal calcification is noted within the distal Achilles tendon. Soft tissue calcifications are seen within the anterior veliz which are felt to be dystrophic. Erosion is identified within the distal corner of the proximal phalanx of the first toe. This is fairly well corticated and most likely is old. Bony structures are osteopenic. Vascular calcification is noted. No acute fracture or dislocation is seen. Impression: 1. Soft tissue swelling, calcaneal spurs and vascular calcification. 2. Slight calcification within the distal Achilles tendon. 3. Erosion involving the distal aspect of the proximal phalanx of the first toe. This is most likely old but if patient has acute symptoms to this area, MRI would then be suggested. Diagnostic code #3
[2021-02-23] MEDS ORDERED: Piperacillin/Tazobactam 4.5 GM in Sodium Chloride 0.9% 100 ML IV ONE ×2 (16:58→17:32)
[2021-02-23] MEDS ORDERED: Lactated Ringers 1,000 ML IV SCH (17:00)
[2021-02-23] MEDS ORDERED: Vancomycin 1.5 GM in Sodium Chloride 0.9% 500 ML IV ONE (17:15)
--- NOTE | 2021-02-23 20:01 | CT ---
Head CT Technique: Multiple axial sections through the brain were obtained. Intravenous contrast was not utilized. Reconstructed coronal and sagittal images were obtained. Comparison: Prior MRI brain of 04/05/[address] study of 04/03/19. Findings: Ventricles along with basal cisterns and sulci over the convexities appear within normal limits for the patient's age. 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 Very minimal areas of diminished density are noted within the periventricular white matter which is most likely due to small vessel ischemic demyelination change. No evidence of intracranial hemorrhage is seen. No midline shift or mass-effect is seen. Bone window settings were reviewed. Visualized mastoid sinuses and paranasal sinuses show nothing acute. No acute calvarial abnormality is appreciated. Impression: 1. Mild senescent change. 2. Nothing acute is seen on noncontrast head CT study. Diagnostic code #2 I agree with preliminary report from [facility], finalized on 02/23/21, 3:58 PM CDT, code 1
--- NOTE | 2021-02-23 20:48 | PCM.HP.2 ---
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 dm fair control. hypertensive cv disease. callouses rt foot. . rule out underlying abscess with xray eval. Onset of Symptoms: Reports: Gradual Symptom Onset Date: 02/09/21 Location: Reports: Lower Extremity, Right Quality: Reports: Stabbing Severity: Moderate Improves with: Reports: Rest Worsens with: Reports: Movement Associated Symptoms: Reports: Confusion, Headaches, Malaise, Other (light headedness and confusion with clear speech last night.). Denies: Fever/Chills, Nausea/Vomiting, Shortness of Breath, Syncope - Related Data Allergies/Adverse Reactions: Allergies Allergy/AdvReac Type Severity Reaction Status Date / Time No Known Allergies Allergy Verified 02/23/21 13:02 Home Medications: Home Meds Pregabalin [Lyrica] 200 mg PO TID 07/03/14 [History] metFORMIN [Glucophage] 1,500 mg PO DAILY 07/03/14 [History] Levothyroxine 75 mg PO DAILY 08/01/17 [History] Metoprolol Tartrate 12.5 mg PO BID 08/01/17 [History] Simvastatin [Zocor] 10 mg PO BEDTIME 08/01/17 [History] allopurinoL [Zyloprim] 100 mg PO DAILY 08/01/17 [History] DULoxetine [Cymbalta] 60 mg PO BID 04/04/19 [History] fentaNYL [Duragesic] 25 mcg TRDERM ASDIRECTED #0 04/06/19 [Rx] Insulin Glargine,Hum.Rec.Anlog [Basaglar Kwikpen U-100] 32 units SUBCUT BEDTIME 02/23/21 [History] oxyCODONE HCl/Acetaminophen [Oxycodone-Acetaminophen 5-325] 1 each PO Q6HR PRN 02/23/21 [History] Past Medical History HEENT History: Reports: Impaired Vision Cardiovascular History: Reports: High Cholesterol, Hypertension Genitourinary History: Reports: Renal Calculus Musculoskeletal History: Reports: Gout Neurological History: Reports: Neuropathy, Peripheral Psychiatric History: Reports: Depression Endocrine/Metabolic History: Reports: Diabetes, Type II, Hypothyroidism Hematologic History: Reports: None - Infectious Disease History Infectious Disease History: Reports: Chicken Pox, Measles - Past Surgical History HEENT Surgical History: Reports: Cataract Surgery, Oral Surgery GI Surgical History: Reports: Appendectomy Female Surgical History: Reports: Hysterectomy Musculoskeletal Surgical History: Reports: Other (See Below) Other Musculoskeletal Surgeries/Procedures:: left ankle surgery Social & Family History - Family History Family Medical History: No Pertinent Family History - Tobacco Use Tobacco Use Status *Q: Never Tobacco User Second Hand Smoke Exposure: No - Caffeine Use Caffeine Use: Reports: Coffee - Recreational Drug Use Recreational Drug Use: No H&P Review of Systems - Review of Systems: Review Of Systems: See Below General: Reports: No Symptoms, Malaise, Weakness HEENT: Reports: No Symptoms Pulmonary: Reports: No Symptoms Cardiovascular: Reports: No Symptoms, Lightheadedness Gastrointestinal: Reports: No Symptoms Genitourinary: Reports: No Symptoms Musculoskeletal: Reports: No Symptoms Skin: Reports: No Symptoms Psychiatric: Reports: No Symptoms Neurological: Reports: Confusion, Weakness Hematologic/Lymphatic: Reports: No Symptoms Immunologic: Reports: No Symptoms Exam - Exam Exam: See Below - Vital Signs Vital Signs: Last Vital Signs Temp 37.5 C 02/23/21 17:15 Pulse 74 02/23/21 17:15 Resp 18 02/23/21 17:15 BP 140/63 02/23/21 17:15 Pulse Ox 97 02/23/21 17:15 Weight: 92.533 kg - Exam General: Alert, Oriented, 4 HEENT: PERRLA, Hearing Intact, Mucosa Moist & Short Pump, Nares Patent, Normal Nasal Septum, Posterior Pharynx Clear, Conjunctiva Clear, EOMI, EACs Clear, TMs Clear Neck: Supple, Trachea Midline, 2 Lungs: Clear to Auscultation, Normal Respiratory Effort Cardiovascular: Regular Rate, Regular Rhythm GI/Abdominal Exam: Normal Bowel Sounds, Soft, Non-Tender, No Organomegaly, No Distention, No Abnormal Bruit, No Mass, Pelvis Stable (Female) Exam: Deferred. No: Normal External Exam, Normal Speculum Exam, Normal Bimanual Exam Rectal (Female) Exam: Normal Exam, Normal Rectal Tone Back Exam: Normal Inspection, Full Range of Motion, NT Extremities: Normal Inspection, Normal Range of Motion, Normal Capillary Refill, Pedal Edema. No: Non-Tender, No Pedal Edema Skin: Warm, Dry, Intact Neurological: Cranial Nerves Intact, Reflexes Equal Bilateral Neuro Extensive - Mental Status: Alert, Oriented x3, Normal Mood/Affect, Normal Cognition Neuro Extensive - Motor, Sensory, Reflexes: CN II-XII Intact, Normal Gait, Normal Reflexes Psychiatric: Alert, Normal Affect, Normal Mood, Other (poor historian ) - Patient Data Lab Results Last 24 hrs: Laboratory Results - last 24 hr 02/23/21 02/23/21 02/23/21 Range/Units 13:05 13:20 13:20 WBC (3.98-10.04) K/mm3 RBC (3.98-5.22) M/mm3 Hgb (11.2-15.7) gm/dl Hct (34.1-44.9) % MCV (79.4-94.8) fl MCH (25.6-32.2) pg MCHC (32.2-35.5) g/dl RDW Std Deviation (36.4-46.3) fL Plt Count (182-369) K/mm3 MPV (9.4-12.3) fl Neutrophils % (Manual) (40-60) % Band Neutrophils % (0-10) % Lymphocytes % (Manual) (20-40) % Atypical Lymphs % % Monocytes % (Manual) (2-10) % Eosinophils % (Manual) (0.7-5.8) % Basophils % (Manual) (0.1-1.2) Platelet Estimate Plt Morphology Comment RBC Morph Comment PT 11.5 (9.7-12.0) SECONDS INR 1.08 APTT 26.9 (21.7-31.4) SECONDS Sodium 138 (136-145) mEq/L Potassium 4.1 (3.5-5.1) mEq/L Chloride 99 (98-107) mEq/L Carbon Dioxide 29 (21-32) mEq/L Anion Gap 14.1 (5-15) BUN 21 H (7-18) mg/dL Creatinine 1.3 H (0.55-1.02) mg/dL Est Cr Clr Drug Dosing 35.24 mL/min Estimated GFR (MDRD) 40 (>60) mL/min BUN/Creatinine Ratio 16.2 (14-18) Glucose 160 H (70-99) mg/dL POC Glucose (70-99) mg/dL Lactic Acid (0.4-2.0) mmol/L Calcium 8.8 (8.5-10.1) mg/dL Total Bilirubin 0.6 (0.2-1.0) mg/dL AST 12 L (15-37) U/L ALT 18 (14-59) U/L Alkaline Phosphatase 52 (46-116) U/L Troponin I < 0.017 (0.00-0.056) ng/mL Total Protein 7.5 (6.4-8.2) g/dl Albumin 3.4 (3.4-5.0) g/dl Globulin 4.1 gm/dL Albumin/Globulin Ratio 0.8 L (1-2) Urine Color Yellow (Yellow) Urine Appearance Clear (Clear) Urine pH 6.0 (5.0-8.0) Ur Specific Colbert 1.025 (1.005-1.030) Urine Protein Trace H (Negative) Urine Glucose (UA) Trace H (Negative) Urine Ketones Negative (Negative) Urine Occult Blood Negative (Negative) Urine Nitrite Negative (Negative) Urine Bilirubin Negative (Negative) Urine Urobilinogen 0.2 (0.2-1.0) Ur Leukocyte Esterase Negative (Negative) Urine RBC 0-5 (0-5) /hpf Urine WBC 0-5 (0-5) /hpf Ur Squamous Epith Cells 5-10 H (0-5) /hpf Urine Bacteria Many H (FEW) /hpf Urine Mucus Many H (FEW) /hpf SARS-CoV-2 RNA (GEORGE) (NEGATIVE) 02/23/21 02/23/21 02/23/21 Range/Units 13:20 13:22 14:03 WBC 22.53 H (3.98-10.04) K/mm3 RBC 3.98 (3.98-5.22) M/mm3 Hgb 12.2 (11.2-15.7) gm/dl Hct 37.3 (34.1-44.9) % MCV 93.7 (79.4-94.8) fl MCH 30.7 (25.6-32.2) pg MCHC 32.7 (32.2-35.5) g/dl RDW Std Deviation 47.2 H (36.4-46.3) fL Plt Count 207 (182-369) K/mm3 MPV 10.7 (9.4-12.3) fl Neutrophils % (Manual) 64 H (40-60) % Band Neutrophils % 16 H (0-10) % Lymphocytes % (Manual) 13 L (20-40) % Atypical Lymphs % 0 % Monocytes % (Manual) 6 (2-10) % Eosinophils % (Manual) 0 L (0.7-5.8) % Basophils % (Manual) 1 (0.1-1.2) Platelet Estimate Adequate Plt Morphology Comment Normal RBC Morph Comment Normal PT (9.7-12.0) SECONDS INR APTT (21.7-31.4) SECONDS Sodium (136-145) mEq/L Potassium (3.5-5.1) mEq/L Chloride (98-107) mEq/L Carbon Dioxide (21-32) mEq/L Anion Gap (5-15) BUN (7-18) mg/dL Creatinine (0.55-1.02) mg/dL Est Cr Clr Drug Dosing mL/min Estimated GFR (MDRD) (>60) mL/min BUN/Creatinine Ratio (14-18) Glucose (70-99) mg/dL POC Glucose 164 H (70-99) mg/dL Lactic Acid 2.0 (0.4-2.0) mmol/L Calcium (8.5-10.1) mg/dL Total Bilirubin (0.2-1.0) mg/dL AST (15-37) U/L ALT (14-59) U/L Alkaline Phosphatase (46-116) U/L Troponin I (0.00-0.056) ng/mL Total Protein (6.4-8.2) g/dl Albumin (3.4-5.0) g/dl Globulin gm/dL Albumin/Globulin Ratio (1-2) Urine Color (Yellow) Urine Appearance (Clear) Urine pH (5.0-8.0) Ur Specific Colbert (1.005-1.030) Urine Protein (Negative) Urine Glucose (UA) (Negative) Urine Ketones (Negative) Urine Occult Blood (Negative) Urine Nitrite (Negative) Urine Bilirubin (Negative) Urine Urobilinogen (0.2-1.0) Ur Leukocyte Esterase (Negative) Urine RBC (0-5) /hpf Urine WBC (0-5) /hpf Ur Squamous Epith Cells (0-5) /hpf Urine Bacteria (FEW) /hpf Urine Mucus (FEW) /hpf SARS-CoV-2 RNA (GEORGE) (NEGATIVE) 02/23/21 Range/Units 19:00 WBC (3.98-10.04) K/mm3 RBC (3.98-5.22) M/mm3 Hgb (11.2-15.7) gm/dl Hct (34.1-44.9) % MCV (79.4-94.8) fl MCH (25.6-32.2) pg MCHC (32.2-35.5) g/dl RDW Std Deviation (36.4-46.3) fL Plt Count (182-369) K/mm3 MPV (9.4-12.3) fl Neutrophils % (Manual) (40-60) % Band Neutrophils % (0-10) % Lymphocytes % (Manual) (20-40) % Atypical Lymphs % % Monocytes % (Manual) (2-10) % Eosinophils % (Manual) (0.7-5.8) % Basophils % (Manual) (0.1-1.2) Platelet Estimate Plt Morphology Comment RBC Morph Comment PT (9.7-12.0) SECONDS INR APTT (21.7-31.4) SECONDS Sodium (136-145) mEq/L Potassium (3.5-5.1) mEq/L Chloride (98-107) mEq/L Carbon Dioxide (21-32) mEq/L Anion Gap (5-15) BUN (7-18) mg/dL Creatinine (0.55-1.02) mg/dL Est Cr Clr Drug Dosing mL/min Estimated GFR (MDRD) (>60) mL/min BUN/Creatinine Ratio (14-18) Glucose (70-99) mg/dL POC Glucose (70-99) mg/dL Lactic Acid (0.4-2.0) mmol/L Calcium (8.5-10.1) mg/dL Total Bilirubin (0.2-1.0) mg/dL AST (15-37) U/L ALT (14-59) U/L Alkaline Phosphatase (46-116) U/L Troponin I (0.00-0.056) ng/mL Total Protein (6.4-8.2) g/dl Albumin (3.4-5.0) g/dl Globulin gm/dL Albumin/Globulin Ratio (1-2) Urine Color (Yellow) Urine Appearance (Clear) Urine pH (5.0-8.0) Ur Specific Colbert (1.005-1.030) Urine Protein (Negative) Urine Glucose (UA) (Negative) Urine Ketones (Negative) Urine Occult Blood (Negative) Urine Nitrite (Negative) Urine Bilirubin (Negative) Urine Urobilinogen (0.2-1.0) Ur Leukocyte Esterase (Negative) Urine RBC (0-5) /hpf Urine WBC (0-5) /hpf Ur Squamous Epith Cells (0-5) /hpf Urine Bacteria (FEW) /hpf Urine Mucus (FEW) /hpf SARS-CoV-2 RNA (GEORGE) Negative (NEGATIVE) Result Diagrams: 02/23/21 13:20 02/23/21 13:20 Sepsis Event Note - Evaluation Sepsis Screening Result: No Definite Risk Possible Source of Sepsis: Skin/Soft Tissue - Focused Exam Vital Signs: Vital Signs Temp Pulse Resp BP Pulse Ox 02/23/21 17:15 37.5 C 74 18 140/63 97 02/23/21 12:25 37.4 C 68 16 139/57 L 89 L Heart Sounds: Distant Capillary Refill, Detail: Greater than (>) 2 Seconds Skin Exam (Focused Sepsis): Short Pump Date Exam was Performed: 02/23/21 - Bedside Monitoring CVP Measures: Less than 8 Bedside Ultrasound Performed: No Passive Leg Raise/Fluid Bolus: Not Performed Date Bedside Monitoring was Performed: 02/23/21 Time Bedside Monitoring was Performed: 20:51 - Problem List (1) Cellulitis and abscess of foot SNOMED Code(s): 730883587, 423341673 ICD Code: L03.119 - CELLULITIS OF UNSPECIFIED PART OF LIMB; L02.619 - CUTANEOUS ABSCESS OF UNSPECIFIED FOOT Status: Acute Priority: Medium Current Visit: Yes Onset Date: ~02/23/21 Problem Details: start rocephin and monitor clinical response. (2) Diabetes 1.5, managed as type 1 SNOMED Code(s): 139812634 ICD Code: E13.9 - OTHER SPECIFIED DIABETES MELLITUS WITHOUT COMPLICATIONS Status: Acute Priority: Medium Current Visit: Yes Onset Date: ~02/23/21 Problem Details: basiglar and metformin/// l.a 2.3 (3) Change in mental status SNOMED Code(s): 583381511 ICD Code: R41.82 - ALTERED MENTAL STATUS, UNSPECIFIED Status: Acute Priority: Low Current Visit: No Onset Date: ~02/23/21 Problem Details: con fusion last nght bad per . b.s checked and okay rang in am 95-130 but denies low bl sugar symptoms Qualifiers: Altered mental status type: disorientation Qualified Code(s): R41.0 - Disorientation, unspecified (4) Chronic pain SNOMED Code(s): 82103722 ICD Code: G89.29 - OTHER CHRONIC PAIN Status: Chronic Priority: Medium Current Visit: No Onset Date: ~02/23/21 Qualifiers: Chronic pain type: chronic pain syndrome Qualified Code(s): G89.4 - Chronic pain syndrome (5) Neuropathy SNOMED Code(s): 603961585 ICD Code: G62.9 - POLYNEUROPATHY, UNSPECIFIED Status: Chronic Priority: Medium Current Visit: No Onset Date: 07/03/14 Problem Details: have p.t assess suspect long-term impairment (6) Opioid dependence with current use SNOMED Code(s): 497940592 ICD Code: F11.20 - OPIOID DEPENDENCE, UNCOMPLICATED Status: Chronic Priority: High Current Visit: No Onset Date: ~02/23/21 Problem Details: may needs slums but denies depression and does not know severity. doesn't how long memory loss goes off and on Problem List Initiated/Reviewed/Updated: Yes Orders Last 24hrs: Active Orders 24 hr Category Date Time Status Admission Status [Patient Status] [ADT] Routine ADT 02/23/21 20:15 Active EKG Documentation Completion [RC] STAT Care 02/23/21 13:36 Active BLOOD CULTURE [MREF] Stat Lab 02/23/21 14:03 Received BLOOD CULTURE [MREF] Stat Lab 02/23/21 14:15 Received Lactated Ringers [Ringers, Lactated] 1,000 ml Med 02/23/21 17:00 Active IV ASDIRECTED Blood Culture x2 Reflex Set [OM.PC] Stat Oth 02/23/21 13:36 Ordered Medication Orders Lactated Ringer's (Ringers, Lactated) 1,000 mls @ 125 mls/hr IV ASDIRECTED HELENE Last Admin: 02/23/21 18:20 Dose: 125 mls/hr Documented by: KELY Assessment/Plan Comment:: 02/23/21 assess: 75 year old female with altered state of conc. last night cellulitis of rt foot. rule out osteo arthritis,gout . diabetes fair control x 22 years . edema related to lower edema /cellulitis and other issues. start rocephin and folow up response. check lactic acid. p.t and ot to see. repeat labs boh - Mortality Measure Prognosis:: Good
[2021-02-23] MEDS ORDERED: Acetaminophen/oxyCODONE 325-5 MG Tab PO PRN (21:08)
[2021-02-23] MEDS ORDERED: fentaNYL 50 MCG/HR Transdermal Patch TRDERM SCH (21:15)
[2021-02-23] MEDS: Insulin Glarg,Human.Rec.Analog 100 Unit/ML SUBCUT SCH (22:17)
[2021-02-23] MEDS: Sodium Chloride 0.9% 1,000 ML IV SCH (23:37)
[2021-02-23] MEDS: cefTRIAXone 1 GM in Sodium Chloride 0.9% 100 ML IV SCH (23:40)
[2021-02-24] MEDS: Levothyroxine 75 MCG Tab PO SCH (06:03)
[2021-02-24] MEDS: Allopurinol 100 MG Tab PO SCH (08:22)
[2021-02-24] MEDS: Metoprolol Tartrate 25 MG Tab PO SCH ×2 (08:22→21:19)
[2021-02-24] MEDS: DULoxetine 30 MG Cap PO SCH ×2 (08:23→21:13)
[2021-02-24] MEDS: fentaNYL 25 MCG/HR Transdermal Patch TRDERM SCH (08:23)
[2021-02-24] MEDS ORDERED: Levothyroxine 75 MCG Tab PO SCH (09:00)
[2021-02-24] MEDS: Pregabalin 75 MG Cap PO SCH ×3 (09:55→21:13)
[2021-02-24] MEDS: Pregabalin 25 MG Cap PO SCH ×3 (09:55→21:13)
[2021-02-24] MEDS ORDERED: Heparin Sodium 5,000 Units/ML Vial SUBCUT SCH (10:15)
--- NOTE | 2021-02-24 11:30 | PCM.PN ---
- General Info Date of Service: 02/24/21 Admission Dx/Problem (Free Text): Admission Diagnosis/Problem Admission Diagnosis/Problem Cellulitis Subjective Update: patient denies chest pain denies SOB not elevating right leg denies fever denies diarrhea - Review of Systems General: Reports: No Symptoms HEENT: Reports: No Symptoms Pulmonary: Reports: No Symptoms Cardiovascular: Reports: No Symptoms Gastrointestinal: Reports: No Symptoms Musculoskeletal: Reports: Joint Swelling Neurological: Reports: No Symptoms Psychiatric: Reports: No Symptoms - Patient Data Vitals - Most Recent: Last Vital Signs Temp 98.2 F 02/24/21 08:15 Pulse 70 02/24/21 08:22 Resp 20 02/24/21 08:15 BP 130/93 H 02/24/21 08:22 Pulse Ox 90 L 02/24/21 08:15 Weight - Most Recent: 229 lb 14.4 oz I&O - Last 24 Hours: Intake & Output 02/23/21 02/24/21 02/24/21 22:59 06:59 14:59 Intake Total 671 Output Total 600 Balance 71 Lab Results Last 24 Hours: Laboratory Results - last 24 hr 02/23/21 02/23/21 02/23/21 Range/Units 13:05 13:20 13:20 WBC (3.98-10.04) K/mm3 RBC (3.98-5.22) M/mm3 Hgb (11.2-15.7) gm/dl Hct (34.1-44.9) % MCV (79.4-94.8) fl MCH (25.6-32.2) pg MCHC (32.2-35.5) g/dl RDW Std Deviation (36.4-46.3) fL Plt Count (182-369) K/mm3 MPV (9.4-12.3) fl Neutrophils % (Manual) (40-60) % Band Neutrophils % (0-10) % Lymphocytes % (Manual) (20-40) % Atypical Lymphs % % Monocytes % (Manual) (2-10) % Eosinophils % (Manual) (0.7-5.8) % Basophils % (Manual) (0.1-1.2) Platelet Estimate Plt Morphology Comment RBC Morph Comment PT 11.5 (9.7-12.0) SECONDS INR 1.08 APTT 26.9 (21.7-31.4) SECONDS Sodium 138 (136-145) mEq/L Potassium 4.1 (3.5-5.1) mEq/L Chloride 99 (98-107) mEq/L Carbon Dioxide 29 (21-32) mEq/L Anion Gap 14.1 (5-15) BUN 21 H (7-18) mg/dL Creatinine 1.3 H (0.55-1.02) mg/dL Est Cr Clr Drug Dosing 35.24 mL/min Estimated GFR (MDRD) 40 (>60) mL/min BUN/Creatinine Ratio 16.2 (14-18) Glucose 160 H (70-99) mg/dL POC Glucose (70-99) mg/dL Lactic Acid (0.4-2.0) mmol/L Calcium 8.8 (8.5-10.1) mg/dL Total Bilirubin 0.6 (0.2-1.0) mg/dL AST 12 L (15-37) U/L ALT 18 (14-59) U/L Alkaline Phosphatase 52 (46-116) U/L Troponin I < 0.017 (0.00-0.056) ng/mL Total Protein 7.5 (6.4-8.2) g/dl Albumin 3.4 (3.4-5.0) g/dl Globulin 4.1 gm/dL Albumin/Globulin Ratio 0.8 L (1-2) Urine Color Yellow (Yellow) Urine Appearance Clear (Clear) Urine pH 6.0 (5.0-8.0) Ur Specific Gravel Switch 1.025 (1.005-1.030) Urine Protein Trace H (Negative) Urine Glucose (UA) Trace H (Negative) Urine Ketones Negative (Negative) Urine Occult Blood Negative (Negative) Urine Nitrite Negative (Negative) Urine Bilirubin Negative (Negative) Urine Urobilinogen 0.2 (0.2-1.0) Ur Leukocyte Esterase Negative (Negative) Urine RBC 0-5 (0-5) /hpf Urine WBC 0-5 (0-5) /hpf Ur Squamous Epith Cells 5-10 H (0-5) /hpf Urine Bacteria Many H (FEW) /hpf Urine Mucus Many H (FEW) /hpf SARS-CoV-2 RNA (GEORGE) (NEGATIVE) 02/23/21 02/23/21 02/23/21 Range/Units 13:20 13:22 14:03 WBC 22.53 H (3.98-10.04) K/mm3 RBC 3.98 (3.98-5.22) M/mm3 Hgb 12.2 (11.2-15.7) gm/dl Hct 37.3 (34.1-44.9) % MCV 93.7 (79.4-94.8) fl MCH 30.7 (25.6-32.2) pg MCHC 32.7 (32.2-35.5) g/dl RDW Std Deviation 47.2 H (36.4-46.3) fL Plt Count 207 (182-369) K/mm3 MPV 10.7 (9.4-12.3) fl Neutrophils % (Manual) 64 H (40-60) % Band Neutrophils % 16 H (0-10) % Lymphocytes % (Manual) 13 L (20-40) % Atypical Lymphs % 0 % Monocytes % (Manual) 6 (2-10) % Eosinophils % (Manual) 0 L (0.7-5.8) % Basophils % (Manual) 1 (0.1-1.2) Platelet Estimate Adequate Plt Morphology Comment Normal RBC Morph Comment Normal PT (9.7-12.0) SECONDS INR APTT (21.7-31.4) SECONDS Sodium (136-145) mEq/L Potassium (3.5-5.1) mEq/L Chloride (98-107) mEq/L Carbon Dioxide (21-32) mEq/L Anion Gap (5-15) BUN (7-18) mg/dL Creatinine (0.55-1.02) mg/dL Est Cr Clr Drug Dosing mL/min Estimated GFR (MDRD) (>60) mL/min BUN/Creatinine Ratio (14-18) Glucose (70-99) mg/dL POC Glucose 164 H (70-99) mg/dL Lactic Acid 2.0 (0.4-2.0) mmol/L Calcium (8.5-10.1) mg/dL Total Bilirubin (0.2-1.0) mg/dL AST (15-37) U/L ALT (14-59) U/L Alkaline Phosphatase (46-116) U/L Troponin I (0.00-0.056) ng/mL Total Protein (6.4-8.2) g/dl Albumin (3.4-5.0) g/dl Globulin gm/dL Albumin/Globulin Ratio (1-2) Urine Color (Yellow) Urine Appearance (Clear) Urine pH (5.0-8.0) Ur Specific Gravel Switch (1.005-1.030) Urine Protein (Negative) Urine Glucose (UA) (Negative) Urine Ketones (Negative) Urine Occult Blood (Negative) Urine Nitrite (Negative) Urine Bilirubin (Negative) Urine Urobilinogen (0.2-1.0) Ur Leukocyte Esterase (Negative) Urine RBC (0-5) /hpf Urine WBC (0-5) /hpf Ur Squamous Epith Cells (0-5) /hpf Urine Bacteria (FEW) /hpf Urine Mucus (FEW) /hpf SARS-CoV-2 RNA (GEORGE) (NEGATIVE) 02/23/21 02/24/21 02/24/21 Range/Units 19:00 06:07 10:55 WBC (3.98-10.04) K/mm3 RBC (3.98-5.22) M/mm3 Hgb (11.2-15.7) gm/dl Hct (34.1-44.9) % MCV (79.4-94.8) fl MCH (25.6-32.2) pg MCHC (32.2-35.5) g/dl RDW Std Deviation (36.4-46.3) fL Plt Count (182-369) K/mm3 MPV (9.4-12.3) fl Neutrophils % (Manual) (40-60) % Band Neutrophils % (0-10) % Lymphocytes % (Manual) (20-40) % Atypical Lymphs % % Monocytes % (Manual) (2-10) % Eosinophils % (Manual) (0.7-5.8) % Basophils % (Manual) (0.1-1.2) Platelet Estimate Plt Morphology Comment RBC Morph Comment PT (9.7-12.0) SECONDS INR APTT (21.7-31.4) SECONDS Sodium (136-145) mEq/L Potassium (3.5-5.1) mEq/L Chloride (98-107) mEq/L Carbon Dioxide (21-32) mEq/L Anion Gap (5-15) BUN (7-18) mg/dL Creatinine (0.55-1.02) mg/dL Est Cr Clr Drug Dosing mL/min Estimated GFR (MDRD) (>60) mL/min BUN/Creatinine Ratio (14-18) Glucose (70-99) mg/dL POC Glucose 127 H 176 H (70-99) mg/dL Lactic Acid (0.4-2.0) mmol/L Calcium (8.5-10.1) mg/dL Total Bilirubin (0.2-1.0) mg/dL AST (15-37) U/L ALT (14-59) U/L Alkaline Phosphatase (46-116) U/L Troponin I (0.00-0.056) ng/mL Total Protein (6.4-8.2) g/dl Albumin (3.4-5.0) g/dl Globulin gm/dL Albumin/Globulin Ratio (1-2) Urine Color (Yellow) Urine Appearance (Clear) Urine pH (5.0-8.0) Ur Specific [place] Switch (1.005-1.030) Urine Protein (Negative) Urine Glucose (UA) (Negative) Urine Ketones (Negative) Urine Occult Blood (Negative) Urine Nitrite (Negative) Urine Bilirubin (Negative) Urine Urobilinogen (0.2-1.0) Ur Leukocyte Esterase (Negative) Urine RBC (0-5) /hpf Urine WBC (0-5) /hpf Ur Squamous Epith Cells (0-5) /hpf Urine Bacteria (FEW) /hpf Urine Mucus (FEW) /hpf SARS-CoV-2 RNA (GEORGE) Negative (NEGATIVE) Med Orders - Current: Current Medications Allopurinol (Allopurinol 100 Mg Tab) 100 mg PO DAILY [facility] Last Admin: 02/24/21 08:22 Dose: 100 mg Documented by: Duloxetine HCl (Duloxetine 30 Mg Cap) 60 mg PO BID [facility] Last Admin: 02/24/21 08:23 Dose: 60 mg Documented by: Fentanyl (Fentanyl 25 Mcg/Hr Transdermal Patch) 25 mcg TRDERM Q72H [facility] Last Admin: 02/24/21 08:23 Dose: 25 mcg Documented by: Heparin Sodium (Porcine) (Heparin Sodium 5,000 Units/Ml Vial) 5,000 units SUBCUT TID [facility] Ceftriaxone Sodium 1 gm/ (Sodium Chloride) 100 mls @ 200 mls/hr IV Q24H [facility] Last Admin: 02/23/21 23:40 Dose: 200 mls/hr Documented by: Sodium Chloride (Normal Saline) 1,000 mls @ 75 mls/hr IV ASDIRECTED [facility] Last Admin: 02/23/21 23:37 Dose: 75 mls/hr Documented by: Insulin Glargine (Insulin Glarg,Human.Rec.Analog 100 Unit/Ml) 32 unit SUBCUT BEDTIME [facility] Last Admin: 02/23/21 22:17 Dose: 32 units Documented by: Levothyroxine Sodium (Levothyroxine 75 Mcg Tab) 75 mcg PO ACBREAKFAST [facility] Last Admin: 02/24/21 06:03 Dose: 75 mcg Documented by: Metoprolol Tartrate (Metoprolol Tartrate 25 Mg Tab) 12.5 mg PO BID [facility] Last Admin: 02/24/21 08:22 Dose: 12.5 mg Documented by: Miscellaneous Information (Remove Fentanyl 25 Mcg Patch) 1 ea TRDERM Q72H [facility] Last Admin: 02/24/21 08:23 Dose: 1 ea Documented by: Oxycodone/Acetaminophen (Acetaminophen/Oxycodone 325-5 Mg Tab) 1 tab PO Q6H PRN PRN Reason: Pain (moderate 4-6) Pregabalin (Pregabalin 75 Mg Cap) 150 mg PO TID [facility] Last Admin: 02/24/21 09:55 Dose: 150 mg Documented by: Pregabalin (Pregabalin 25 Mg Cap) 50 mg PO TID [facility] Last Admin: 02/24/21 09:55 Dose: 50 mg Documented by: Discontinued Medications Fentanyl (Fentanyl 50 Mcg/Hr Transdermal Patch) 25 mcg TRDERM ASDIRECTED [facility] Heparin Sodium (Porcine) (Heparin Sodium 5,000 Units/Ml Vial) 5,000 units SUBCUT Q8H [facility] Piperacillin Sod/Tazobactam (Sod 4.5 gm/ Sodium Chloride) 100 mls @ 25 mls/hr IV ONETIME ONE Stop: 02/23/21 20:57 Last Admin: 02/23/21 17:34 Dose: Not Given Documented by: Lactated Ringer's (Ringers, Lactated) 1,000 mls @ 125 mls/hr IV ASDIRECTED [facility] Last Admin: 02/23/21 18:20 Dose: 125 mls/hr Documented by: Vancomycin HCl 1.5 gm/ Sodium (Chloride) 500 mls @ 333.333 mls/hr IV ONETIME ONE Stop: 02/23/21 18:44 Last Admin: 02/23/21 18:22 Dose: 333.333 mls/hr Documented by: Piperacillin Sod/Tazobactam (Sod 4.5 gm/ Sodium Chloride) 100 mls @ 200 mls/hr IV ONETIME ONE Stop: 02/23/21 18:01 Last Admin: 02/23/21 17:35 Dose: 200 mls/hr Documented by: Insulin Glargine (Insulin Glarg,Human.Rec.Analog 100 Unit/Ml) 32 unit SUBCUT BEDTIME [facility] Levothyroxine Sodium (Levothyroxine 75 Mcg Tab) 75,000 mcg PO DAILY [facility] Vancomycin HCl (Pharmacy To Dose - Vancomycin) 1 dose .XX ASDIRECTED [facility] - Exam General: Alert, Oriented, No Acute Distress HEENT: EOMI, Mucous Membr. Moist/[place] Neck: Supple Lungs: Clear to Auscultation, Normal Respiratory Effort Cardiovascular: Regular Rate, Regular Rhythm GI/Abdominal Exam: Soft, Non-Tender, No Distention Extremities: Other (Right lower extremity and foot with erythema and 2+ edema; warm to touch) Skin: Warm, Dry, Intact Neurological: No New Focal Deficit Psy/Mental Status: Alert, Normal Affect, Normal Mood - Patient Data Lab Results Last 24 hrs: Laboratory Results - last 24 hr 02/23/21 02/23/21 02/23/21 Range/Units 13:05 13:20 13:20 WBC (3.98-10.04) K/mm3 RBC (3.98-5.22) M/mm3 Hgb (11.2-15.7) gm/dl Hct (34.1-44.9) % MCV (79.4-94.8) fl MCH (25.6-32.2) pg MCHC (32.2-35.5) g/dl RDW Std Deviation (36.4-46.3) fL Plt Count (182-369) K/mm3 MPV (9.4-12.3) fl Neutrophils % (Manual) (40-60) % Band Neutrophils % (0-10) % Lymphocytes % (Manual) (20-40) % Atypical Lymphs % % Monocytes % (Manual) (2-10) % Eosinophils % (Manual) (0.7-5.8) % Basophils % (Manual) (0.1-1.2) Platelet Estimate Plt Morphology Comment RBC Morph Comment PT 11.5 (9.7-12.0) SECONDS INR 1.08 APTT 26.9 (21.7-31.4) SECONDS Sodium 138 (136-145) mEq/L Potassium 4.1 (3.5-5.1) mEq/L Chloride 99 (98-107) mEq/L Carbon Dioxide 29 (21-32) mEq/L Anion Gap 14.1 (5-15) BUN 21 H (7-18) mg/dL Creatinine 1.3 H (0.55-1.02) mg/dL Est Cr Clr Drug Dosing 35.24 mL/min Estimated GFR (MDRD) 40 (>60) mL/min BUN/Creatinine Ratio 16.2 (14-18) Glucose 160 H (70-99) mg/dL POC Glucose (70-99) mg/dL Lactic Acid (0.4-2.0) mmol/L Calcium 8.8 (8.5-10.1) mg/dL Total Bilirubin 0.6 (0.2-1.0) mg/dL AST 12 L (15-37) U/L ALT 18 (14-59) U/L Alkaline Phosphatase 52 (46-116) U/L Troponin I < 0.017 (0.00-0.056) ng/mL Total Protein 7.5 (6.4-8.2) g/dl Albumin 3.4 (3.4-5.0) g/dl Globulin 4.1 gm/dL Albumin/Globulin Ratio 0.8 L (1-2) Urine Color Yellow (Yellow) Urine Appearance Clear (Clear) Urine pH 6.0 (5.0-8.0) Ur Specific [place] Switch 1.025 (1.005-1.030) Urine Protein Trace H (Negative) Urine Glucose (UA) Trace H (Negative) Urine Ketones Negative (Negative) Urine Occult Blood Negative (Negative) Urine Nitrite Negative (Negative) Urine Bilirubin Negative (Negative) Urine Urobilinogen 0.2 (0.2-1.0) Ur Leukocyte Esterase Negative (Negative) Urine RBC 0-5 (0-5) /hpf Urine WBC 0-5 (0-5) /hpf Ur Squamous Epith Cells 5-10 H (0-5) /hpf Urine Bacteria Many H (FEW) /hpf Urine Mucus Many H (FEW) /hpf SARS-CoV-2 RNA (GEORGE) (NEGATIVE) 02/23/21 02/23/21 02/23/21 Range/Units 13:20 13:22 14:03 WBC 22.53 H (3.98-10.04) K/mm3 RBC 3.98 (3.98-5.22) M/mm3 Hgb 12.2 (11.2-15.7) gm/dl Hct 37.3 (34.1-44.9) % MCV 93.7 (79.4-94.8) fl MCH 30.7 (25.6-32.2) pg MCHC 32.7 (32.2-35.5) g/dl RDW Std Deviation 47.2 H (36.4-46.3) fL Plt Count 207 (182-369) K/mm3 MPV 10.7 (9.4-12.3) fl Neutrophils % (Manual) 64 H (40-60) % Band Neutrophils % 16 H (0-10) % Lymphocytes % (Manual) 13 L (20-40) % Atypical Lymphs % 0 % Monocytes % (Manual) 6 (2-10) % Eosinophils % (Manual) 0 L (0.7-5.8) % Basophils % (Manual) 1 (0.1-1.2) Platelet Estimate Adequate Plt Morphology Comment Normal RBC Morph Comment Normal PT (9.7-12.0) SECONDS INR APTT (21.7-31.4) SECONDS Sodium (136-145) mEq/L Potassium (3.5-5.1) mEq/L Chloride (98-107) mEq/L Carbon Dioxide (21-32) mEq/L Anion Gap (5-15) BUN (7-18) mg/dL Creatinine (0.55-1.02) mg/dL Est Cr Clr Drug Dosing mL/min Estimated GFR (MDRD) (>60) mL/min BUN/Creatinine Ratio (14-18) Glucose (70-99) mg/dL POC Glucose 164 H (70-99) mg/dL Lactic Acid 2.0 (0.4-2.0) mmol/L Calcium (8.5-10.1) mg/dL Total Bilirubin (0.2-1.0) mg/dL AST (15-37) U/L ALT (14-59) U/L Alkaline Phosphatase (46-116) U/L Troponin I (0.00-0.056) ng/mL Total Protein (6.4-8.2) g/dl Albumin (3.4-5.0) g/dl Globulin gm/dL Albumin/Globulin Ratio (1-2) Urine Color (Yellow) Urine Appearance (Clear) Urine pH (5.0-8.0) Ur Specific [place] Switch (1.005-1.030) Urine Protein (Negative) Urine Glucose (UA) (Negative) Urine Ketones (Negative) Urine Occult Blood (Negative) Urine Nitrite (Negative) Urine Bilirubin (Negative) Urine Urobilinogen (0.2-1.0) Ur Leukocyte Esterase (Negative) Urine RBC (0-5) /hpf Urine WBC (0-5) /hpf Ur Squamous Epith Cells (0-5) /hpf Urine Bacteria (FEW) /hpf Urine Mucus (FEW) /hpf SARS-CoV-2 RNA (GEORGE) (NEGATIVE) 02/23/21 02/24/21 02/24/21 Range/Units 19:00 06:07 10:55 WBC (3.98-10.04) K/mm3 RBC (3.98-5.22) M/mm3 Hgb (11.2-15.7) gm/dl Hct (34.1-44.9) % MCV (79.4-94.8) fl MCH (25.6-32.2) pg MCHC (32.2-35.5) g/dl RDW Std Deviation (36.4-46.3) fL Plt Count (182-369) K/mm3 MPV (9.4-12.3) fl Neutrophils % (Manual) (40-60) % Band Neutrophils % (0-10) % Lymphocytes % (Manual) (20-40) % Atypical Lymphs % % Monocytes % (Manual) (2-10) % Eosinophils % (Manual) (0.7-5.8) % Basophils % (Manual) (0.1-1.2) Platelet Estimate Plt Morphology Comment RBC Morph Comment PT (9.7-12.0) SECONDS INR APTT (21.7-31.4) SECONDS Sodium (136-145) mEq/L Potassium (3.5-5.1) mEq/L Chloride (98-107) mEq/L Carbon Dioxide (21-32) mEq/L Anion Gap (5-15) BUN (7-18) mg/dL Creatinine (0.55-1.02) mg/dL Est Cr Clr Drug Dosing mL/min Estimated GFR (MDRD) (>60) mL/min BUN/Creatinine Ratio (14-18) Glucose (70-99) mg/dL POC Glucose 127 H 176 H (70-99) mg/dL Lactic Acid (0.4-2.0) mmol/L Calcium (8.5-10.1) mg/dL Total Bilirubin (0.2-1.0) mg/dL AST (15-37) U/L ALT (14-59) U/L Alkaline Phosphatase (46-116) U/L Troponin I (0.00-0.056) ng/mL Total Protein (6.4-8.2) g/dl Albumin (3.4-5.0) g/dl Globulin gm/dL Albumin/Globulin Ratio (1-2) Urine Color (Yellow) Urine Appearance (Clear) Urine pH (5.0-8.0) Ur Specific [place] Switch (1.005-1.030) Urine Protein (Negative) Urine Glucose (UA) (Negative) Urine Ketones (Negative) Urine Occult Blood (Negative) Urine Nitrite (Negative) Urine Bilirubin (Negative) Urine Urobilinogen (0.2-1.0) Ur Leukocyte Esterase (Negative) Urine RBC (0-5) /hpf Urine WBC (0-5) /hpf Ur Squamous Epith Cells (0-5) /hpf Urine Bacteria (FEW) /hpf Urine Mucus (FEW) /hpf SARS-CoV-2 RNA (GEORGE) Negative (NEGATIVE) Result Diagrams: 02/23/21 13:20 02/23/21 13:20 Sepsis Event Note - Evaluation Sepsis Screening Result: No Definite Risk - Focused Exam Vital Signs: Vital Signs Temp Pulse Resp BP Pulse Ox 02/24/21 08:22 70 130/93 H 02/24/21 08:15 98.2 F 70 20 130/93 H 90 L 02/24/21 06:04 98.4 F 70 16 127/56 L 91 L 02/24/21 00:21 98.4 F 72 18 127/62 93 L - Problem List Review Problem List Initiated/Reviewed/Updated: Yes - My Orders Last 24 Hours: My Active Orders 02/24/21 09:00 Pregabalin [Lyrica] 150 mg PO TID Pregabalin [Lyrica] 50 mg PO TID 02/24/21 11:02 PT Evaluation and Treatment [CONS] Routine 02/24/21 11:28 Foot w Cont Rt [MR] Routine 02/24/21 15:00 Heparin Sodium 5,000 units SUBCUT TID - Plan Plan:: 02/23/21 assess: 75 year old female with altered state of conc. last night cellulitis of rt foot. rule out osteo arthritis,gout . diabetes fair control x 22 years . edema related to lower edema /cellulitis and other issues. start rocephin and folow up response. check lactic acid. p.t and ot to see. repeat labs boh 02/24/21 This is a 69F presenting right lower extremity and foot cellulitis; started on ceftriaxone 1. cellulitis of right lower extremity and foot 2. Type II DM with peripheral neuropathy 3. Hx of HLD 4. Hx of Gout 5. Hx of HTN 6. Hx of depression 7. Hx of hypothyroidism 8. LUCIANA; Cr 1.3 Plan -check MRI foot to rule out osteomyelitis -venous doppler US of lower extremities to rule out DVT -continue ceftriaxone -elevate leg -hold metformin -PT consult -check a1c -start IVF; hold nephrotoxic agents; repeat BMp iin AM code-Full DVT px-heparin Dispo-anticipated discharge to home 2-3 days
[2021-02-24] MEDS ORDERED: Sodium Chloride 0.9% 10 ML Syringe FLUSH PRN (11:32)
[2021-02-24] MEDS ORDERED: Iopamidol 612 MG/ML 100 ML Bottle IVPUSH ONE (11:32)
[2021-02-24] MEDS: Sodium Chloride 0.9% 1,000 ML IV SCH (12:19)
--- NOTE | 2021-02-24 12:38 | US ---
Bilateral lower extremity deep venous ultrasound: Duplex and color Doppler evaluation was obtained of the right and left common femoral, greater saphenous, superficial femoral, popliteal, posterior tibial and peroneal veins. Findings: Scattered lymph nodes seen within the right inguinal region which, by my estimation, are felt to be within normal limits. Normal phasic flow, augmentation and compression is seen. Impression: 1. No findings of deep venous thrombosis within the right or left lower extremity. Diagnostic code #1
[2021-02-24] MEDS: Heparin Sodium 5,000 Units/ML Vial SUBCUT SCH ×2 (14:09→21:12)
[2021-02-24] MEDS ORDERED: Sodium Chloride 0.9% 1,000 ML IV SCH (17:00)
[2021-02-24] MEDS ORDERED: Insulin Glarg,Human.Rec.Analog 100 Unit/ML SUBCUT SCH (21:00)
[2021-02-24] MEDS: cefTRIAXone 1 GM in Sodium Chloride 0.9% 100 ML IV SCH (21:11)
[2021-02-24] MEDS: Insulin Glarg,Human.Rec.Analog 100 Unit/ML SUBCUT SCH (21:12)
[2021-02-25] MEDS: Sodium Chloride 0.9% 1,000 ML IV SCH (01:16)
[2021-02-25] MEDS: Levothyroxine 75 MCG Tab PO SCH (06:03)
[2021-02-25] MEDS: Pregabalin 25 MG Cap PO SCH ×3 (10:20→21:15)
[2021-02-25] MEDS: Allopurinol 100 MG Tab PO SCH (10:20)
[2021-02-25] MEDS: Pregabalin 75 MG Cap PO SCH ×3 (10:20→21:13)
[2021-02-25] MEDS: DULoxetine 30 MG Cap PO SCH ×2 (10:20→21:13)
[2021-02-25] MEDS: Heparin Sodium 5,000 Units/ML Vial SUBCUT SCH ×3 (10:21→21:20)
[2021-02-25] MEDS: Metoprolol Tartrate 25 MG Tab PO SCH ×2 (10:56→21:17)
[2021-02-25] MEDS ORDERED: Gadobenate Dimeglumine 529 MG/ML 20 ML SDV IVPUSH ONE (12:09)
--- NOTE | 2021-02-25 12:09 | PCM.PN ---
- General Info Date of Service: 02/25/21 Admission Dx/Problem (Free Text): Admission Diagnosis/Problem Admission Diagnosis/Problem Cellulitis Functional Status: Reports: Pain Controlled - Review of Systems General: Reports: No Symptoms HEENT: Reports: No Symptoms Pulmonary: Reports: No Symptoms Cardiovascular: Reports: No Symptoms Gastrointestinal: Reports: No Symptoms Musculoskeletal: Reports: No Symptoms Neurological: Reports: No Symptoms - Patient Data Vitals - Most Recent: Last Vital Signs Temp 97.7 F 02/25/21 10:56 Pulse 55 L 02/25/21 10:56 Resp 16 02/25/21 10:56 BP 156/59 H 02/25/21 10:56 Pulse Ox 91 L 02/25/21 10:56 Weight - Most Recent: 230 lb I&O - Last 24 Hours: Intake & Output 02/24/21 02/25/21 02/25/21 22:59 06:59 14:59 Intake Total 1400 1623 200 Output Total 2550 1500 Balance -1150 123 200 Lab Results Last 24 Hours: Laboratory Results - last 24 hr 02/24/21 02/25/21 02/25/21 Range/Units 17:17 06:10 08:52 WBC 14.79 H (3.98-10.04) K/mm3 RBC 3.87 L (3.98-5.22) M/mm3 Hgb 11.7 (11.2-15.7) gm/dl Hct 36.8 (34.1-44.9) % MCV 95.1 H (79.4-94.8) fl MCH 30.2 (25.6-32.2) pg MCHC 31.8 L (32.2-35.5) g/dl RDW Std Deviation 49.9 H (36.4-46.3) fL Plt Count 208 (182-369) K/mm3 MPV 10.6 (9.4-12.3) fl Neut % (Auto) 72.0 H (34.0-71.1) % Lymph % (Auto) 18.2 L (19.3-51.7) % Christian % (Auto) 7.0 (4.7-12.5) % Eos % (Auto) 2.3 (0.7-5.8) Baso % (Auto) 0.3 (0.1-1.2) % Neut # (Auto) 10.65 H (1.56-6.13) K/mm3 Lymph # (Auto) 2.69 (1.18-3.74) K/mm3 Christian # (Auto) 1.04 H (0.24-0.36) K/mm3 Eos # (Auto) 0.34 (0.04-0.36) K/mm3 Baso # (Auto) 0.04 (0.01-0.08) K/mm3 Sodium (136-145) mEq/L Potassium (3.5-5.1) mEq/L Chloride (98-107) mEq/L Carbon Dioxide (21-32) mEq/L Anion Gap (5-15) BUN (7-18) mg/dL Creatinine (0.55-1.02) mg/dL Est Cr Clr Drug Dosing mL/min Estimated GFR (MDRD) (>60) mL/min BUN/Creatinine Ratio (14-18) Glucose (70-99) mg/dL POC Glucose 141 H 92 (70-99) mg/dL Calcium (8.5-10.1) mg/dL 02/25/21 02/25/21 Range/Units 08:52 10:54 WBC (3.98-10.04) K/mm3 RBC (3.98-5.22) M/mm3 Hgb (11.2-15.7) gm/dl Hct (34.1-44.9) % MCV (79.4-94.8) fl MCH (25.6-32.2) pg MCHC (32.2-35.5) g/dl RDW Std Deviation (36.4-46.3) fL Plt Count (182-369) K/mm3 MPV (9.4-12.3) fl Neut % (Auto) (34.0-71.1) % Lymph % (Auto) (19.3-51.7) % Christian % (Auto) (4.7-12.5) % Eos % (Auto) (0.7-5.8) Baso % (Auto) (0.1-1.2) % Neut # (Auto) (1.56-6.13) K/mm3 Lymph # (Auto) (1.18-3.74) K/mm3 Christian # (Auto) (0.24-0.36) K/mm3 Eos # (Auto) (0.04-0.36) K/mm3 Baso # (Auto) (0.01-0.08) K/mm3 Sodium 142 (136-145) mEq/L Potassium 4.6 (3.5-5.1) mEq/L Chloride 106 (98-107) mEq/L Carbon Dioxide 27 (21-32) mEq/L Anion Gap 13.6 (5-15) BUN 13 (7-18) mg/dL Creatinine 0.9 (0.55-1.02) mg/dL Est Cr Clr Drug Dosing 50.90 mL/min Estimated GFR (MDRD) > 60 (>60) mL/min BUN/Creatinine Ratio 14.4 (14-18) Glucose 129 H (70-99) mg/dL POC Glucose 98 (70-99) mg/dL Calcium 8.6 (8.5-10.1) mg/dL Eyad Results Last 24 Hours: Microbiology 02/23/21 14:15 Blood Culture - Preliminary Blood - Venous - Lab Draw 02/23/21 14:03 Blood Culture - Preliminary Blood - Venous Med Orders - Current: Current Medications Allopurinol (Allopurinol 100 Mg Tab) 100 mg PO DAILY [facility] Last Admin: 02/25/21 10:20 Dose: 100 mg Documented by: Duloxetine HCl (Duloxetine 30 Mg Cap) 60 mg PO BID [facility] Last Admin: 02/25/21 10:20 Dose: 60 mg Documented by: Fentanyl (Fentanyl 25 Mcg/Hr Transdermal Patch) 25 mcg TRDERM Q72H [facility] Last Admin: 02/24/21 08:23 Dose: 25 mcg Documented by: Heparin Sodium (Porcine) (Heparin Sodium 5,000 Units/Ml Vial) 5,000 units S UBCUT TID [facility] Last Admin: 02/25/21 10:21 Dose: 5,000 units Documented by: Ceftriaxone Sodium 1 gm/ (Sodium Chloride) 100 mls @ 200 mls/hr IV Q24H [facility] Last Admin: 02/24/21 21:11 Dose: 200 mls/hr Documented by: Sodium Chloride (Normal Saline) 1,000 mls @ 75 mls/hr IV ASDIRECTED [facility] Last Admin: 02/25/21 01:16 Dose: 75 mls/hr Documented by: Insulin Glargine (Insulin Glarg,Human.Rec.Analog 100 Unit/Ml) 32 unit SUBCUT BEDTIME [facility] Last Admin: 02/24/21 21:12 Dose: 32 units Documented by: Levothyroxine Sodium (Levothyroxine 75 Mcg Tab) 75 mcg PO ACBREAKFAST [facility] Last Admin: 02/25/21 06:03 Dose: 75 mcg Documented by: Metoprolol Tartrate (Metoprolol Tartrate 25 Mg Tab) 12.5 mg PO BID [facility] Last Admin: 02/25/21 10:56 Dose: Not Given Documented by: Miscellaneous Information (Remove Fentanyl 25 Mcg Patch) 1 ea TRDERM Q72H [facility] Last Admin: 02/24/21 08:23 Dose: 1 ea Documented by: Oxycodone/Acetaminophen (Acetaminophen/Oxycodone 325-5 Mg Tab) 1 tab PO Q6H PRN PRN Reason: Pain (moderate 4-6) Pregabalin (Pregabalin 75 Mg Cap) 150 mg PO TID [facility] Last Admin: 02/25/21 10:20 Dose: 150 mg Documented by: Pregabalin (Pregabalin 25 Mg Cap) 50 mg PO TID [facility] Last Admin: 02/25/21 10:20 Dose: 50 mg Documented by: Sodium Chloride (Sodium Chloride 0.9% 10 Ml Syringe) 10 ml FLUSH ONETIME PRN PRN Reason: Keep Vein Open Discontinued Medications Fentanyl (Fentanyl 50 Mcg/Hr Transdermal Patch) 25 mcg TRDERM ASDIRECTED [facility] Heparin Sodium (Porcine) (Heparin Sodium 5,000 Units/Ml Vial) 5,000 units SUBCUT Q8H [facility] Piperacillin Sod/Tazobactam (Sod 4.5 gm/ Sodium Chloride) 100 mls @ 25 mls/hr IV ONETIME ONE Stop: 02/23/21 20:57 Last Admin: 02/23/21 17:34 Dose: Not Given Documented by: Lactated Ringer's (Ringers, Lactated) 1,000 mls @ 125 mls/hr IV ASDIRECTED [facility] Last Admin: 02/23/21 18:20 Dose: 125 mls/hr Documented by: Vancomycin HCl 1.5 gm/ Sodium (Chloride) 500 mls @ 333.333 mls/hr IV ONETIME ONE Stop: 02/23/21 18:44 Last Admin: 02/23/21 18:22 Dose: 333.333 mls/hr Documented by: Piperacillin Sod/Tazobactam (Sod 4.5 gm/ Sodium Chloride) 100 mls @ 200 mls/hr IV ONETIME ONE Stop: 02/23/21 18:01 Last Admin: 02/23/21 17:35 Dose: 200 mls/hr Documented by: Sodium Chloride (Normal Saline) 1,000 mls @ 75 mls/hr IV ASDIRECTED [facility] Insulin Glargine (Insulin Glarg,Human.Rec.Analog 100 Unit/Ml) 32 unit SUBCUT BEDTIME [facility] Levothyroxine Sodium (Levothyroxine 75 Mcg Tab) 75,000 mcg PO DAILY [facility] Vancomycin HCl (Pharmacy To Dose - Vancomycin) 1 dose .XX ASDIRECTED [facility] - Exam General: Alert, Oriented HEENT: EOMI, Mucous Membr. Moist/[place] Neck: Supple Lungs: Clear to Auscultation, Normal Respiratory Effort Cardiovascular: Regular Rate, Regular Rhythm GI/Abdominal Exam: Normal Bowel Sounds, Soft, Non-Tender, No Distention Back Exam: Normal Inspection Extremities: Other (improved erythema/edema of right lower extremity and foot) - Patient Data Lab Results Last 24 hrs: Laboratory Results - last 24 hr 02/24/21 02/25/21 02/25/21 Range/Units 17:17 06:10 08:52 WBC 14.79 H (3.98-10.04) K/mm3 RBC 3.87 L (3.98-5.22) M/mm3 Hgb 11.7 (11.2-15.7) gm/dl Hct 36.8 (34.1-44.9) % MCV 95.1 H (79.4-94.8) fl MCH 30.2 (25.6-32.2) pg MCHC 31.8 L (32.2-35.5) g/dl RDW Std Deviation 49.9 H (36.4-46.3) fL Plt Count 208 (182-369) K/mm3 MPV 10.6 (9.4-12.3) fl Neut % (Auto) 72.0 H (34.0-71.1) % Lymph % (Auto) 18.2 L (19.3-51.7) % Christian % (Auto) 7.0 (4.7-12.5) % Eos % (Auto) 2.3 (0.7-5.8) Baso % (Auto) 0.3 (0.1-1.2) % Neut # (Auto) 10.65 H (1.56-6.13) K/mm3 Lymph # (Auto) 2.69 (1.18-3.74) K/mm3 Christian # (Auto) 1.04 H (0.24-0.36) K/mm3 Eos # (Auto) 0.34 (0.04-0.36) K/mm3 Baso # (Auto) 0.04 (0.01-0.08) K/mm3 Sodium (136-145) mEq/L Potassium (3.5-5.1) mEq/L Chloride (98-107) mEq/L Carbon Dioxide (21-32) mEq/L Anion Gap (5-15) BUN (7-18) mg/dL Creatinine (0.55-1.02) mg/dL Est Cr Clr Drug Dosing mL/min Estimated GFR (MDRD) (>60) mL/min BUN/Creatinine Ratio (14-18) Glucose (70-99) mg/dL POC Glucose 141 H 92 (70-99) mg/dL Calcium (8.5-10.1) mg/dL 02/25/21 02/25/21 Range/Units 08:52 10:54 WBC (3.98-10.04) K/mm3 RBC (3.98-5.22) M/mm3 Hgb (11.2-15.7) gm/dl Hct (34.1-44.9) % MCV (79.4-94.8) fl MCH (25.6-32.2) pg MCHC (32.2-35.5) g/dl RDW Std Deviation (36.4-46.3) fL Plt Count (182-369) K/mm3 MPV (9.4-12.3) fl Neut % (Auto) (34.0-71.1) % Lymph % (Auto) (19.3-51.7) % Christian % (Auto) (4.7-12.5) % Eos % (Auto) (0.7-5.8) Baso % (Auto) (0.1-1.2) % Neut # (Auto) (1.56-6.13) K/mm3 Lymph # (Auto) (1.18-3.74) K/mm3 Christian # (Auto) (0.24-0.36) K/mm3 Eos # (Auto) (0.04-0.36) K/mm3 Baso # (Auto) (0.01-0.08) K/mm3 Sodium 142 (136-145) mEq/L Potassium 4.6 (3.5-5.1) mEq/L Chloride 106 (98-107) mEq/L Carbon Dioxide 27 (21-32) mEq/L Anion Gap 13.6 (5-15) BUN 13 (7-18) mg/dL Creatinine 0.9 (0.55-1.02) mg/dL Est Cr Clr Drug Dosing 50.90 mL/min Estimated GFR (MDRD) > 60 (>60) mL/min BUN/Creatinine Ratio 14.4 (14-18) Glucose 129 H (70-99) mg/dL POC Glucose 98 (70-99) mg/dL Calcium 8.6 (8.5-10.1) mg/dL Result Diagrams: 02/25/21 08:52 02/25/21 08:52 Eyad Results Last 24 hrs: Microbiology 02/23/21 14:15 Blood Culture - Preliminary Blood - Venous - Lab Draw 02/23/21 14:03 Blood Culture - Preliminary Blood - Venous Sepsis Event Note - Evaluation Sepsis Screening Result: No Definite Risk - Focused Exam Vital Signs: Vital Signs Temp Pulse Resp BP Pulse Ox 02/25/21 10:56 97.7 F 55 L 16 156/59 H 91 L 02/25/21 10:17 57 L 134/59 L 94 L 02/25/21 07:40 99.1 F 55 L 16 124/57 L 95 02/25/21 06:07 97.7 F 67 18 128/97 H 95 - Problem List Review Problem List Initiated/Reviewed/Updated: Yes - My Orders Last 24 Hours: My Active Orders 02/24/21 15:00 Heparin Sodium 5,000 units SUBCUT TID 02/25/21 08:00 Foot w wo Cont Rt [MR] Routine 02/25/21 10:49 Consult to Physical Therapy [PT Evaluation and Treatment] [CONS] Routine - Plan Plan:: 02/24/21 This is a 69F presenting right lower extremity and foot cellulitis; started on ceftriaxone 1. cellulitis of right lower extremity and foot 2. Type II DM with peripheral neuropathy 3. Hx of HLD 4. Hx of Gout 5. Hx of HTN 6. Hx of depression 7. Hx of hypothyroidism 8. LUCIANA; Cr 1.3 Plan -check MRI foot to rule out osteomyelitis; unable to be completed till 02/25 -venous doppler US of lower extremities to rule out DVT was negative -continue ceftriaxone -elevate leg -hold metformin -PT consult -check a1c -dc IVF code-Full DVT px-heparin Dispo-anticipated discharge to home tomorrow assuming no evidence of osteomyelitis
[2021-02-25] MEDS ORDERED: Sodium Chloride 0.9% 10 ML Syringe FLUSH SCH (12:15)
--- NOTE | 2021-02-25 12:51 | MR ---
MRI right foot Technique: T1, T1 fat suppressed and T1 fat-suppressed postcontrast sagittal; T2 fat-suppressed; T2-weighted and proton weighted axial as well as postcontrast T1 fat-suppressed coronal; T1, T2 fat-suppressed and T1 fat-suppressed postcontrast axial images were obtained. Comparison: Prior right foot study of 02/23/21. Findings: Diffuse soft tissue edema is seen within the toes as well as surrounding the foot but is most prominent dorsally. Slight bony edema is seen diffusely within the second through fifth toes which shows very minimal enhancement. Findings are felt compatible with minimal diffuse osteomyelitis. Small area of enhancement is seen within an erosion of the distal aspect of the proximal phalanx of the first toe compatible with a small area of more focal osteomyelitis. Metatarsal and tarsal bones as well as visualized hindfoot bones show no edema or enhancement. Plantar fascia is intact. Achilles tendon is intact. Impression: 1. Soft tissue edema as noted above most prominent dorsally which is compatible with diffuse cellulitis. 2. Mild bony edema and mild enhancement within the second through fifth toes compatible with mild osteomyelitis. 3. Small area of enhancement and edema within the distal corner of the proximal phalanx of the first toe compatible with more focal osteomyelitis. Diagnostic code #3
[2021-02-25] MEDS ORDERED: Vancomycin 2 GM in Sodium Chloride 0.9% 500 ML IV ONE (16:00)
[2021-02-25] MEDS: cefTRIAXone 1 GM in Sodium Chloride 0.9% 100 ML IV SCH (21:09)
[2021-02-25] MEDS: Insulin Glarg,Human.Rec.Analog 100 Unit/ML SUBCUT SCH (21:18)
[2021-02-26] MEDS: Levothyroxine 75 MCG Tab PO SCH (06:15)
[2021-02-26] MEDS: Pregabalin 25 MG Cap PO SCH ×3 (08:20→21:14)
[2021-02-26] MEDS: Pregabalin 75 MG Cap PO SCH ×3 (08:20→21:14)
[2021-02-26] MEDS: Metoprolol Tartrate 25 MG Tab PO SCH ×2 (08:20→21:15)
[2021-02-26] MEDS: Heparin Sodium 5,000 Units/ML Vial SUBCUT SCH ×3 (08:21→21:13)
[2021-02-26] MEDS: Allopurinol 100 MG Tab PO SCH (08:21)
[2021-02-26] MEDS: DULoxetine 30 MG Cap PO SCH ×2 (08:22→21:14)
[2021-02-26] MEDS ORDERED: Cefepime 2 GM in Premix Bag 1 BAG IV SCH (12:00)
--- NOTE | 2021-02-26 14:31 | PCM.PN ---
- General Info Date of Service: 02/26/21 Admission Dx/Problem (Free Text): Admission Diagnosis/Problem Admission Diagnosis/Problem Cellulitis Subjective Update: denies chest pain denies sob no nausea or vomiting no diarrhea Functional Status: Reports: Pain Controlled - Review of Systems General: Reports: No Symptoms HEENT: Reports: No Symptoms Pulmonary: Reports: No Symptoms Cardiovascular: Reports: No Symptoms Gastrointestinal: Reports: No Symptoms Genitourinary: Reports: No Symptoms - Patient Data Vitals - Most Recent: Last Vital Signs Temp 97.9 F 02/26/21 11:06 Pulse 55 L 02/26/21 11:06 Resp 16 02/26/21 11:06 BP 137/64 02/26/21 11:06 Pulse Ox 91 L 02/26/21 11:06 Weight - Most Recent: 230 lb I&O - Last 24 Hours: Intake & Output 02/25/21 02/26/21 02/26/21 22:59 06:59 14:59 Intake Total 2924 1700 200 Output Total 1200 2250 Balance 1724 -550 200 Lab Results Last 24 Hours: Laboratory Results - last 24 hr 02/25/21 02/25/21 02/26/21 Range/Units 16:47 20:52 05:42 WBC 13.13 H (3.98-10.04) K/mm3 RBC 3.68 L (3.98-5.22) M/mm3 Hgb 11.0 L (11.2-15.7) gm/dl Hct 34.5 (34.1-44.9) % MCV 93.8 (79.4-94.8) fl MCH 29.9 (25.6-32.2) pg MCHC 31.9 L (32.2-35.5) g/dl RDW Std Deviation 47.1 H (36.4-46.3) fL Plt Count 216 (182-369) K/mm3 MPV 11.1 (9.4-12.3) fl Sodium (136-145) mEq/L Potassium (3.5-5.1) mEq/L Chloride (98-107) mEq/L Carbon Dioxide (21-32) mEq/L Anion Gap (5-15) BUN (7-18) mg/dL Creatinine (0.55-1.02) mg/dL Est Cr Clr Drug Dosing mL/min Estimated GFR (MDRD) (>60) mL/min BUN/Creatinine Ratio (14-18) Glucose (70-99) mg/dL POC Glucose 128 H 140 H (70-99) mg/dL Calcium (8.5-10.1) mg/dL Creatine Kinase (26-192) U/L C-Reactive Protein (<1.0) mg/dL 02/26/21 02/26/21 02/26/21 Range/Units 05:42 06:36 11:05 WBC (3.98-10.04) K/mm3 RBC (3.98-5.22) M/mm3 Hgb (11.2-15.7) gm/dl Hct (34.1-44.9) % MCV (79.4-94.8) fl MCH (25.6-32.2) pg MCHC (32.2-35.5) g/dl RDW Std Deviation (36.4-46.3) fL Plt Count (182-369) K/mm3 MPV (9.4-12.3) fl Sodium 139 (136-145) mEq/L Potassium 4.2 (3.5-5.1) mEq/L Chloride 104 (98-107) mEq/L Carbon Dioxide 26 (21-32) mEq/L Anion Gap 13.2 (5-15) BUN 14 (7-18) mg/dL Creatinine 1.0 (0.55-1.02) mg/dL Est Cr Clr Drug Dosing 45.82 mL/min Estimated GFR (MDRD) 54 (>60) mL/min BUN/Creatinine Ratio 14.0 (14-18) Glucose 118 H (70-99) mg/dL POC Glucose 98 117 H (70-99) mg/dL Calcium 8.2 L (8.5-10.1) mg/dL Creatine Kinase (26-192) U/L C-Reactive Protein (<1.0) mg/dL 02/26/21 Range/Units 12:14 WBC (3.98-10.04) K/mm3 RBC (3.98-5.22) M/mm3 Hgb (11.2-15.7) gm/dl Hct (34.1-44.9) % MCV (79.4-94.8) fl MCH (25.6-32.2) pg MCHC (32.2-35.5) g/dl RDW Std Deviation (36.4-46.3) fL Plt Count (182-369) K/mm3 MPV (9.4-12.3) fl Sodium (136-145) mEq/L Potassium (3.5-5.1) mEq/L Chloride (98-107) mEq/L Carbon Dioxide (21-32) mEq/L Anion Gap (5-15) BUN (7-18) mg/dL Creatinine (0.55-1.02) mg/dL Est Cr Clr Drug Dosing mL/min Estimated GFR (MDRD) (>60) mL/min BUN/Creatinine Ratio (14-18) Glucose (70-99) mg/dL POC Glucose (70-99) mg/dL Calcium (8.5-10.1) mg/dL Creatine Kinase 185 (26-192) U/L C-Reactive Protein 7.8 H* (<1.0) mg/dL Eyad Results Last 24 Hours: Microbiology 02/23/21 14:15 Blood Culture - Preliminary Blood - Venous - Lab Draw 02/23/21 14:03 Blood Culture - Preliminary Blood - Venous Med Orders - Current: Current Medications Allopurinol (Allopurinol 100 Mg Tab) 100 mg PO DAILY [facility] Last Admin: 02/26/21 08:21 Dose: 100 mg Documented by: Duloxetine HCl (Duloxetine 30 Mg Cap) 60 mg PO BID [facility] Last Admin: 02/26/21 08:22 Dose: 60 mg Documented by: Fentanyl (Fentanyl 25 Mcg/Hr Transdermal Patch) 25 mcg TRDERM Q72H [facility] Last Admin: 02/24/21 08:23 Dose: 25 mcg Documented by: Heparin Sodium (Porcine) (Heparin Sodium 5,000 Units/Ml Vial) 5,000 units SUBCUT TID [facility] Last Admin: 02/26/21 08:21 Dose: 5,000 units Documented by: Vancomycin HCl 1 gm/Vancomycin HCl 500 mg/ Sodium Chloride 500 mls @ 250 mls/hr IV Q24H [facility] Cefepime HCl 2 gm/ Premix 50 mls @ 100 mls/hr IV Q24H [facility] Last Admin: 02/26/21 12:34 Dose: 100 mls/hr Documented by: Insulin Glargine (Insulin Glarg,Human.Rec.Analog 100 Unit/Ml) 32 unit SUBCUT BEDTIME [facility] Last Admin: 02/25/21 21:18 Dose: 32 units Documented by: Levothyroxine Sodium (Levothyroxine 75 Mcg Tab) 75 mcg PO ACBREAKFAST [facility] Last Admin: 02/26/21 06:15 Dose: 75 mcg Documented by: Metoprolol Tartrate (Metoprolol Tartrate 25 Mg Tab) 12.5 mg PO BID [facility] Last Admin: 02/26/21 08:20 Dose: 12.5 mg Documented by: Miscellaneous Information (Remove Fentanyl 25 Mcg Patch) 1 ea TRDERM Q72H [facility] Last Admin: 02/24/21 08:23 Dose: 1 ea Documented by: Oxycodone/Acetaminophen (Acetaminophen/Oxycodone 325-5 Mg Tab) 1 tab PO Q6H PRN PRN Reason: Pain (moderate 4-6) Pregabalin (Pregabalin 75 Mg Cap) 150 mg PO TID [facility] Last Admin: 02/26/21 08:20 Dose: 150 mg Documented by: Pregabalin (Pregabalin 25 Mg Cap) 50 mg PO TID [facility] Last Admin: 02/26/21 08:20 Dose: 50 mg Documented by: Sodium Chloride (Sodium Chloride 0.9% 10 Ml Syringe) 10 ml FLUSH ONETIME PRN PRN Reason: Keep Vein Open Vancomycin HCl (Pharmacy To Dose - Vancomycin) 1 dose .XX ASDIRECTED [facility] Discontinued Medications Fentanyl (Fentanyl 50 Mcg/Hr Transdermal Patch) 25 mcg TRDERM ASDIRECTED [facility] Gadobenate Dimeglumine (Gadobenate Dimeglumine 529 Mg/Ml 20 Ml Sdv) 20 ml IVPUSH ONETIME ONE Stop: 02/25/21 12:10 Last Admin: 02/25/21 12:18 Dose: 20 ml Documented by: Heparin Sodium (Porcine) (Heparin Sodium 5,000 Units/Ml Vial) 5,000 units SUBCUT Q8H [facility] Piperacillin Sod/Tazobactam (Sod 4.5 gm/ Sodium Chloride) 100 mls @ 25 mls/hr IV ONETIME ONE Stop: 02/23/21 20:57 Last Admin: 02/23/21 17:34 Dose: Not Given Documented by: Lactated Ringer's (Ringers, Lactated) 1,000 mls @ 125 mls/hr IV ASDIRECTED [facility] Last Admin: 08/08/21 18:20 Dose: 125 mls/hr Documented by: Vancomycin HCl 1.5 gm/ Sodium (Chloride) 500 mls @ 333.333 mls/hr IV ONETIME ONE Stop: 02/23/21 18:44 Last Admin: 02/23/21 18:22 Dose: 333.333 mls/hr Documented by: Piperacillin Sod/Tazobactam (Sod 4.5 gm/ Sodium Chloride) 100 mls @ 200 mls/hr IV ONETIME ONE Stop: 02/23/21 18:01 Last Admin: 02/23/21 17:35 Dose: 200 mls/hr Documented by: Ceftriaxone Sodium 1 gm/ (Sodium Chloride) 100 mls @ 200 mls/hr IV Q24H [facility] Last Admin: 02/25/21 21:09 Dose: 200 mls/hr Documented by: Sodium Chloride (Normal Saline) 1,000 mls @ 75 mls/hr IV ASDIRECTED [facility] Last Admin: 02/25/21 01:16 Dose: 75 mls/hr Documented by: Sodium Chloride (Normal Saline) 1,000 mls @ 75 mls/hr IV ASDIRECTED [facility] Vancomycin HCl 2 gm/ Sodium (Chloride) 500 mls @ 250 mls/hr IV ONETIME ONE Stop: 02/25/21 17:59 Last Admin: 02/25/21 16:01 Dose: 250 mls/hr Documented by: Insulin Glargine (Insulin Glarg,Human.Rec.Analog 100 Unit/Ml) 32 unit SUBCUT BEDTIME [facility] Levothyroxine Sodium (Levothyroxine 75 Mcg Tab) 75,000 mcg PO DAILY [facility] Sodium Chloride (Sodium Chloride 0.9% 10 Ml Syringe) 20 ml FLUSH ASDIRECTED [facility] Stop: 02/25/21 15:00 Last Admin: 02/25/21 12:19 Dose: 20 ml Documented by: Vancomycin HCl (Pharmacy To Dose - Vancomycin) 1 dose .XX ASDIRECTED [facility] - Exam General: Alert, Oriented, No Acute Distress HEENT: EOMI, Mucous Membr. Moist/[place] Neck: Supple Lungs: Clear to Auscultation, Normal Respiratory Effort Cardiovascular: Regular Rate, Regular Rhythm GI/Abdominal Exam: Soft, Non-Tender, No Distention Extremities: Normal Inspection, Other (erythema/edema right lower extremity improving; plantar surface ulceration no discharge) Skin: Warm, Dry Wound/Incisions: No Drainage Neurological: No New Focal Deficit Psy/Mental Status: Alert, Normal Affect - Patient Data Lab Results Last 24 hrs: Laboratory Results - last 24 hr 02/25/21 02/25/21 02/26/21 Range/Units 16:47 20:52 05:42 WBC 13.13 H (3.98-10.04) K/mm3 RBC 3.68 L (3.98-5.22) M/mm3 Hgb 11.0 L (11.2-15.7) gm/dl Hct 34.5 (34.1-44.9) % MCV 93.8 (79.4-94.8) fl MCH 29.9 (25.6-32.2) pg MCHC 31.9 L (32.2-35.5) g/dl RDW Std Deviation 47.1 H (36.4-46.3) fL Plt Count 216 (182-369) K/mm3 MPV 11.1 (9.4-12.3) fl Sodium (136-145) mEq/L Potassium (3.5-5.1) mEq/L Chloride (98-107) mEq/L Carbon Dioxide (21-32) mEq/L Anion Gap (5-15) BUN (7-18) mg/dL Creatinine (0.55-1.02) mg/dL Est Cr Clr Drug Dosing mL/min Estimated GFR (MDRD) (>60) mL/min BUN/Creatinine Ratio (14-18) Glucose (70-99) mg/dL POC Glucose 128 H 140 H (70-99) mg/dL Calcium (8.5-10.1) mg/dL Creatine Kinase (26-192) U/L C-Reactive Protein (<1.0) mg/dL 02/26/21 02/26/21 02/26/21 Range/Units 05:42 06:36 11:05 WBC (3.98-10.04) K/mm3 RBC (3.98-5.22) M/mm3 Hgb (11.2-15.7) gm/dl Hct (34.1-44.9) % MCV (79.4-94.8) fl MCH (25.6-32.2) pg MCHC (32.2-35.5) g/dl RDW Std Deviation (36.4-46.3) fL Plt Count (182-369) K/mm3 MPV (9.4-12.3) fl Sodium 139 (136-145) mEq/L Potassium 4.2 (3.5-5.1) mEq/L Chloride 104 (98-107) mEq/L Carbon Dioxide 26 (21-32) mEq/L Anion Gap 13.2 (5-15) BUN 14 (7-18) mg/dL Creatinine 1.0 (0.55-1.02) mg/dL Est Cr Clr Drug Dosing 45.82 mL/min Estimated GFR (MDRD) 54 (>60) mL/min BUN/Creatinine Ratio 14.0 (14-18) Glucose 118 H (70-99) mg/dL POC Glucose 98 117 H (70-99) mg/dL Calcium 8.2 L (8.5-10.1) mg/dL Creatine Kinase (26-192) U/L C-Reactive Protein (<1.0) mg/dL 02/26/21 Range/Units 12:14 WBC (3.98-10.04) K/mm3 RBC (3.98-5.22) M/mm3 Hgb (11.2-15.7) gm/dl Hct (34.1-44.9) % MCV (79.4-94.8) fl MCH (25.6-32.2) pg MCHC (32.2-35.5) g/dl RDW Std Deviation (36.4-46.3) fL Plt Count (182-369) K/mm3 MPV (9.4-12.3) fl Sodium (136-145) mEq/L Potassium (3.5-5.1) mEq/L Chloride (98-107) mEq/L Carbon Dioxide (21-32) mEq/L Anion Gap (5-15) BUN (7-18) mg/dL Creatinine (0.55-1.02) mg/dL Est Cr Clr Drug Dosing mL/min Estimated GFR (MDRD) (>60) mL/min BUN/Creatinine Ratio (14-18) Glucose (70-99) mg/dL POC Glucose (70-99) mg/dL Calcium (8.5-10.1) mg/dL Creatine Kinase 185 (26-192) U/L C-Reactive Protein 7.8 H* (<1.0) mg/dL Result Diagrams: 02/26/21 05:42 02/26/21 05:42 Eyad Results Last 24 hrs: Microbiology 02/23/21 14:15 Blood Culture - Preliminary Blood - Venous - Lab Draw 02/23/21 14:03 Blood Culture - Preliminary Blood - Venous Imaging Impressions Last 24 hrs: MRI Foot w/wo contrast 1. Soft tissue edema on dorsal surface of right foot 2. Mild bony edema and mild enhancement within the second through fifth toes compatible with mild osteomyelitis 3. Small area of enhancement and edema within the distal corner of the proximal phalanx of the first toe compatible with more focal osteomyelitis Sepsis Event Note - Evaluation Sepsis Screening Result: No Definite Risk - Focused Exam Vital Signs: Vital Signs Temp Pulse Resp BP Pulse Ox 02/26/21 11:06 97.9 F 55 L 16 137/64 91 L 02/26/21 08:20 61 118/57 L 02/26/21 08:19 61 97 02/26/21 07:45 98.1 F 47 L 20 118/57 L 93 L 02/26/21 06:17 98.1 F 55 L 16 105/49 L 90 L - Problem List Review Problem List Initiated/Reviewed/Updated: Yes - My Orders Last 24 Hours: My Active Orders 02/25/21 15:15 Pharmacy to Dose - Vancomycin 1 dose .XX ASDIRECTED 02/26/21 10:56 OT Evaluation and Treatment [CONS] Routine 02/26/21 11:12 Consult to Speech Language Pathology [[employer] Evaluation and Treatment] [CONS] Routine 02/26/21 12:00 Cefepime [Maxipime in D5W 2 GM/50 ML] 2 gm Premix Bag 1 bag IV Q24H 02/26/21 16:00 Vancomycin 1 gm Vancomycin 500 mg Sodium Chloride 0.9% [Normal Saline] 500 ml IV Q24H 02/27/21 06:00 BASIC METABOLIC PANEL,BMP [CHEM] DAILY CBC W/O DIFF,HEMOGRAM [HEME] DAILY 02/28/21 06:00 BASIC METABOLIC PANEL,BMP [CHEM] DAILY CBC W/O DIFF,HEMOGRAM [HEME] DAILY 03/01/21 06:00 BASIC METABOLIC PANEL,BMP [CHEM] DAILY CBC W/O DIFF,HEMOGRAM [HEME] DAILY 03/02/21 06:00 BASIC METABOLIC PANEL,BMP [CHEM] DAILY - Plan Plan:: 02/24/21 This is a 69F presenting right lower extremity and foot cellulitis; started on ceftriaxone. MRI foot showing 1. Soft tissue edema on dorsal surface of right foot 2. Mild bony edema and mild enhancement within the second through fifth toes compatible with mild osteomyelitis 3. Small area of enhancement and edema within the distal corner of the proximal phalanx of the first toe compatible with more focal osteomyelitis; antibiotics transitioned to cefepime and vancomycin 1. cellulitis of right lower extremity and foot+Diabetic Foot ulcer+ osteomyelitis of phalanx of the first toe and second through fifth toes 2. Type II DM with peripheral neuropathy 3. Hx of HLD 4. Hx of Gout 5. Hx of HTN 6. Hx of depression 7. Hx of hypothyroidism 8. LUCIANA; Cr 1.3 Plan -check MRI foot to rule out osteomyelitis completed on 02/25 -venous doppler US of lower extremities to rule out DVT was negative -discontinue ceftriaxone 02/26; start vanco 02/25; cefepime 02/26 -elevate leg -hold metformin -PT and OT consult -f/u blood cx -PICC line wednesday -outpatient podiatry evaluation -Case discussed with [facility]; Dr Rivers; 02/26 -6 weeks of antibiotics at discharge -Daptomycin 6mg/kg daily -cefepime based on renal function; likely 2gm BID -weekly labs; CBC, CMP, CK, CRP code-Full DVT px-heparin Dispo-anticipated discharge Wednesday
[2021-02-26] MEDS: Vancomycin 1 GM, Vancomycin 500 MG in Sodium Chloride 0.9% 500 ML IV SCH (15:31)
[2021-02-26] MEDS: Insulin Glarg,Human.Rec.Analog 100 Unit/ML SUBCUT SCH (21:26)
[2021-02-27] MEDS: Cefepime 2 GM in Premix Bag 1 BAG IV SCH ×3 (00:13→23:18)
[2021-02-27] MEDS: Levothyroxine 75 MCG Tab PO SCH (06:56)
--- NOTE | 2021-02-27 07:31 | PCM.PN ---
- General Info Date of Service: 02/27/21 Admission Dx/Problem (Free Text): Admission Diagnosis/Problem Admission Diagnosis/Problem Cellulitis Subjective Update: Denies N/V/D Denies CP and SOb tolerating diet Functional Status: Reports: Pain Controlled - Review of Systems General: Reports: No Symptoms HEENT: Reports: No Symptoms Pulmonary: Reports: No Symptoms Cardiovascular: Reports: No Symptoms Gastrointestinal: Reports: No Symptoms Musculoskeletal: Reports: No Symptoms - Patient Data Vitals - Most Recent: Last Vital Signs Temp 98.8 F 02/27/21 04:41 Pulse 61 02/27/21 04:41 Resp 20 02/27/21 04:41 BP 139/59 L 02/27/21 04:41 Pulse Ox 93 L 02/27/21 04:41 Weight - Most Recent: 226 lb 9.6 oz I&O - Last 24 Hours: Intake & Output 02/26/21 02/27/21 02/27/21 22:59 06:59 14:59 Intake Total 1850 1650 Output Total 2300 1000 Balance -450 650 Lab Results Last 24 Hours: Laboratory Results - last 24 hr 02/26/21 02/26/21 02/26/21 Range/Units 11:05 12:14 17:17 WBC (3.98-10.04) K/mm3 RBC (3.98-5.22) M/mm3 Hgb (11.2-15.7) gm/dl Hct (34.1-44.9) % MCV (79.4-94.8) fl MCH (25.6-32.2) pg MCHC (32.2-35.5) g/dl RDW Std Deviation (36.4-46.3) fL Plt Count (182-369) K/mm3 MPV (9.4-12.3) fl Sodium (136-145) mEq/L Potassium (3.5-5.1) mEq/L Chloride (98-107) mEq/L Carbon Dioxide (21-32) mEq/L Anion Gap (5-15) BUN (7-18) mg/dL Creatinine (0.55-1.02) mg/dL Est Cr Clr Drug Dosing mL/min Estimated GFR (MDRD) (>60) mL/min BUN/Creatinine Ratio (14-18) Glucose (70-99) mg/dL POC Glucose 117 H 144 H (70-99) mg/dL Calcium (8.5-10.1) mg/dL Creatine Kinase 185 (26-192) U/L C-Reactive Protein 7.8 H* (<1.0) mg/dL 02/26/21 02/27/21 02/27/21 Range/Units 21:03 04:32 04:32 WBC 12.21 H (3.98-10.04) K/mm3 RBC 3.55 L (3.98-5.22) M/mm3 Hgb 10.8 L (11.2-15.7) gm/dl Hct 33.1 L (34.1-44.9) % MCV 93.2 (79.4-94.8) fl MCH 30.4 (25.6-32.2) pg MCHC 32.6 (32.2-35.5) g/dl RDW Std Deviation 47.0 H (36.4-46.3) fL Plt Count 226 (182-369) K/mm3 MPV 10.5 (9.4-12.3) fl Sodium 142 (136-145) mEq/L Potassium 4.1 (3.5-5.1) mEq/L Chloride 106 (98-107) mEq/L Carbon Dioxide 26 (21-32) mEq/L Anion Gap 14.1 (5-15) BUN 13 (7-18) mg/dL Creatinine 1.0 (0.55-1.02) mg/dL Est Cr Clr Drug Dosing 45.82 mL/min Estimated GFR (MDRD) 54 (>60) mL/min BUN/Creatinine Ratio 13.0 L (14-18) Glucose 128 H (70-99) mg/dL POC Glucose 116 H (70-99) mg/dL Calcium 8.4 L (8.5-10.1) mg/dL Creatine Kinase (26-192) U/L C-Reactive Protein (<1.0) mg/dL 02/27/21 02/27/21 Range/Units 04:32 06:54 WBC (3.98-10.04) K/mm3 RBC (3.98-5.22) M/mm3 Hgb (11.2-15.7) gm/dl Hct (34.1-44.9) % MCV (79.4-94.8) fl MCH (25.6-32.2) pg MCHC (32.2-35.5) g/dl RDW Std Deviation (36.4-46.3) fL Plt Count (182-369) K/mm3 MPV (9.4-12.3) fl Sodium (136-145) mEq/L Potassium (3.5-5.1) mEq/L Chloride (98-107) mEq/L Carbon Dioxide (21-32) mEq/L Anion Gap (5-15) BUN (7-18) mg/dL Creatinine (0.55-1.02) mg/dL Est Cr Clr Drug Dosing mL/min Estimated GFR (MDRD) (>60) mL/min BUN/Creatinine Ratio (14-18) Glucose (70-99) mg/dL POC Glucose 117 H (70-99) mg/dL Calcium (8.5-10.1) mg/dL Creatine Kinase (26-192) U/L C-Reactive Protein 7.8 H* (<1.0) mg/dL Med Orders - Current: Current Medications Allopurinol (Allopurinol 100 Mg Tab) 100 mg PO DAILY [facility] Last Admin: 02/26/21 08:21 Dose: 100 mg Documented by: Duloxetine HCl (Duloxetine 30 Mg Cap) 60 mg PO BID [facility] Last Admin: 02/26/21 21:14 Dose: 60 mg Documented by: Fentanyl (Fentanyl 25 Mcg/Hr Transdermal Patch) 25 mcg TRDERM Q72H [facility] Last Admin: 02/24/21 08:23 Dose: 25 mcg Documented by: Heparin Sodium (Porcine) (Heparin Sodium 5,000 Units/Ml Vial) 5,000 units SUBCUT TID [facility] Last Admin: 02/26/21 21:13 Dose: 5,000 units Documented by: Vancomycin HCl 1 gm/Vancomycin HCl 500 mg/ Sodium Chloride 500 mls @ 250 mls/hr IV Q24H [facility] Last Admin: 02/26/21 15:31 Dose: 250 mls/hr Documented by: Cefepime HCl 2 gm/ Premix 50 mls @ 100 mls/hr IV Q12H [facility] Last Admin: 02/27/21 00:13 Dose: 100 mls/hr Documented by: Insulin Glargine (Insulin Glarg,Human.Rec.Analog 100 Unit/Ml) 32 unit SUBCUT BEDTIME [facility] Last Admin: 02/26/21 21:26 Dose: 32 units Documented by: Levothyroxine Sodium (Levothyroxine 75 Mcg Tab) 75 mcg PO ACBREAKFAST [facility] Last Admin: 02/27/21 06:56 Dose: 75 mcg Documented by: Metoprolol Tartrate (Metoprolol Tartrate 25 Mg Tab) 12.5 mg PO BID [facility] Last Admin: 02/26/21 21:15 Dose: Not Given Documented by: Miscellaneous Information (Remove Fentanyl 25 Mcg Patch) 1 ea TRDERM Q72H [facility] Last Admin: 02/24/21 08:23 Dose: 1 ea Documented by: Oxycodone/Acetaminophen (Acetaminophen/Oxycodone 325-5 Mg Tab) 1 tab PO Q6H PRN PRN Reason: Pain (moderate 4-6) Last Admin: 02/26/21 15:33 Dose: 1 tab Documented by: Pregabalin (Pregabalin 75 Mg Cap) 150 mg PO TID [facility] Last Admin: 02/26/21 21:14 Dose: 150 mg Documented by: Pregabalin (Pregabalin 25 Mg Cap) 50 mg PO TID [facility] Last Admin: 02/26/21 21:14 Dose: 50 mg Documented by: Sodium Chloride (Sodium Chloride 0.9% 10 Ml Syringe) 10 ml FLUSH ONETIME PRN PRN Reason: Keep Vein Open Vancomycin HCl (Pharmacy To Dose - Vancomycin) 1 dose .XX ASDIRECTED [facility] Discontinued Medications Fentanyl (Fentanyl 50 Mcg/Hr Transdermal Patch) 25 mcg TRDERM ASDIRECTED [facility] Gadobenate Dimeglumine (Gadobenate Dimeglumine 529 Mg/Ml 20 Ml Sdv) 20 ml IVPUSH ONETIME ONE Stop: 02/25/21 12:10 Last Admin: 02/25/21 12:18 Dose: 20 ml Documented by: Heparin Sodium (Porcine) (Heparin Sodium 5,000 Units/Ml Vial) 5,000 units SUBCUT Q8H [facility] Piperacillin Sod/Tazobactam (Sod 4.5 gm/ Sodium Chloride) 100 mls @ 25 mls/hr IV ONETIME ONE Stop: 02/23/21 20:57 Last Admin: 02/23/21 17:34 Dose: Not Given Documented by: Lactated Ringer's (Ringers, Lactated) 1,000 mls @ 125 mls/hr IV ASDIRECTED [facility] Last Admin: 02/23/21 18:20 Dose: 125 mls/hr Documented by: Vancomycin HCl 1.5 gm/ Sodium (Chloride) 500 mls @ 333.333 mls/hr IV ONETIME ONE Stop: 02/23/21 18:44 Last Admin: 02/23/21 18:22 Dose: 333.333 mls/hr Documented by: Piperacillin Sod/Tazobactam (Sod 4.5 gm/ Sodium Chloride) 100 mls @ 200 mls/hr IV ONETIME ONE Stop: 02/23/21 18:01 Last Admin: 02/23/21 17:35 Dose: 200 mls/hr Documented by: Ceftriaxone Sodium 1 gm/ (Sodium Chloride) 100 mls @ 200 mls/hr IV Q24H [facility] Last Admin: 02/25/21 21:09 Dose: 200 mls/hr Documented by: Sodium Chloride (Normal Saline) 1,000 mls [facility] Admin: 02/25/21 01:16 Dose: 75 mls/hr Documented by: Sodium Chloride (Normal Saline) 1,000 mls @ [facility] Vancomycin HCl 2 gm/ Sodium (Chloride) 500 mls @ 250 mls/hr IV ONETIME ONE Stop: 02/25/21 17:59 Last Admin: 02/25/21 16:01 Dose: 250 mls/hr Documented by: Cefepime HCl 2 gm/ Premix 50 mls @ 100 mls/hr IV Q24H [facility] Last Admin: 02/26/21 12:34 Dose: 100 mls/hr Documented by: Insulin Glargine (Insulin Glarg,Human.Rec.Analog 100 Unit/Ml) 32 unit SUBCUT BEDTIME [facility] Levothyroxine Sodium (Levothyroxine 75 Mcg Tab) 75,000 mcg PO DAILY [facility] Sodium Chloride (Sodium Chloride 0.9% 10 Ml Syringe) 20 [facility] Stop: 02/25/21 15:00 Last Admin: 02/25/21 12:19 Dose: 20 ml Documented by: Vancomycin HCl (Pharmacy To Dose - Vancomycin) 1 dose .XX ASDIRECTED [facility] - Exam General: Alert, Oriented HEENT: EOMI, Mucous Membr. Moist/[place] Neck: Supple Lungs: Clear to Auscultation, Normal Respiratory Effort Cardiovascular: Regular Rate, Regular Rhythm GI/Abdominal Exam: Soft, Non-Tender, No Distention Extremities: Other (Improved right lower extremity edema and erythema) Skin: Warm, Dry Neurological: No New Focal Deficit Psy/Mental Status: Alert, Normal Affect, Normal Mood - Patient Data Lab Results Last 24 hrs: Laboratory Results - last 24 hr 02/26/21 02/26/21 02/26/21 Range/Units 11:05 12:14 17:17 WBC (3.98-10.04) K/mm3 RBC (3.98-5.22) M/mm3 Hgb (11.2-15.7) gm/dl Hct (34.1-44.9) % MCV (79.4-94.8) fl MCH (25.6-32.2) pg MCHC (32.2-35.5) g/dl RDW Std Deviation (36.4-46.3) fL Plt Count (182-369) K/mm3 MPV (9.4-12.3) fl Sodium (136-145) mEq/L Potassium (3.5-5.1) mEq/L Chloride (98-107) mEq/L Carbon Dioxide (21-32) mEq/L Anion Gap (5-15) BUN (7-18) mg/dL Creatinine (0.55-1.02) mg/dL Est Cr Clr Drug Dosing mL/min Estimated GFR (MDRD) (>60) mL/min BUN/Creatinine Ratio (14-18) Glucose (70-99) mg/dL POC Glucose 117 H 144 H (70-99) mg/dL Calcium (8.5-10.1) mg/dL Creatine Kinase 185 (26-192) U/L C-Reactive Protein 7.8 H* (<1.0) mg/dL 02/26/21 02/27/21 02/27/21 Range/Units 21:03 04:32 04:32 WBC 12.21 H (3.98-10.04) K/mm3 RBC 3.55 L (3.98-5.22) M/mm3 Hgb 10.8 L (11.2-15.7) gm/dl Hct 33.1 L (34.1-44.9) % MCV 93.2 (79.4-94.8) fl MCH 30.4 (25.6-32.2) pg MCHC 32.6 (32.2-35.5) g/dl RDW Std Deviation 47.0 H (36.4-46.3) fL Plt Count 226 (182-369) K/mm3 MPV 10.5 (9.4-12.3) fl Sodium 142 (136-145) mEq/L Potassium 4.1 (3.5-5.1) mEq/L Chloride 106 (98-107) mEq/L Carbon Dioxide 26 (21-32) mEq/L Anion Gap 14.1 (5-15) BUN 13 (7-18) mg/dL Creatinine 1.0 (0.55-1.02) mg/dL Est Cr Clr Drug Dosing 45.82 mL/min Estimated GFR (MDRD) 54 (>60) mL/min BUN/Creatinine Ratio 13.0 L (14-18) Glucose 128 H (70-99) mg/dL POC Glucose 116 H (70-99) mg/dL Calcium 8.4 L (8.5-10.1) mg/dL Creatine Kinase (26-192) U/L C-Reactive Protein (<1.0) mg/dL 02/27/21 02/27/21 Range/Units 04:32 06:54 WBC (3.98-10.04) K/mm3 RBC (3.98-5.22) M/mm3 Hgb (11.2-15.7) gm/dl Hct (34.1-44.9) % MCV (79.4-94.8) fl MCH (25.6-32.2) pg MCHC (32.2-35.5) g/dl RDW Std Deviation (36.4-46.3) fL Plt Count (182-369) K/mm3 MPV (9.4-12.3) fl Sodium (136-145) mEq/L Potassium (3.5-5.1) mEq/L Chloride (98-107) mEq/L Carbon Dioxide (21-32) mEq/L Anion Gap (5-15) BUN (7-18) mg/dL Creatinine (0.55-1.02) mg/dL Est Cr Clr Drug Dosing mL/min Estimated GFR (MDRD) (>60) mL/min BUN/Creatinine Ratio (14-18) Glucose (70-99) mg/dL POC Glucose 117 H (70-99) mg/dL Calcium (8.5-10.1) mg/dL Creatine Kinase (26-192) U/L C-Reactive Protein 7.8 H* (<1.0) mg/dL Result Diagrams: 02/27/21 04:32 02/27/21 04:32 Sepsis Event Note - Evaluation Sepsis Screening Result: Possible Sepsis Risk - Focused Exam Vital Signs: Vital Signs Temp Pulse Resp BP Pulse Ox 02/27/21 04:41 98.8 F 61 20 139/59 L 93 L 02/27/21 00:12 99.0 F 64 20 125/74 90 L 02/26/21 21:12 99.1 F 55 L 20 132/71 98 - Problem List Review Problem List Initiated/Reviewed/Updated: Yes - My Orders Last 24 Hours: My Active Orders 02/26/21 10:56 OT Evaluation and Treatment [CONS] Routine 02/26/21 11:12 Consult to Speech Language Pathology [HEALTHCARE ECONOMICS MANAGER Evaluation and Treatment] [CONS] Routine 02/26/21 16:00 Vancomycin 1 gm Vancomycin 500 mg Sodium Chloride 0.9% [Normal Saline] 500 ml IV Q24H 02/27/21 00:00 Cefepime [Maxipime in D5W 2 GM/50 ML] 2 gm Premix Bag 1 bag IV Q12H 02/27/21 06:32 Add On Test [COMM] Routine 02/28/21 06:00 BASIC METABOLIC PANEL,BMP [CHEM] DAILY CBC W/O DIFF,HEMOGRAM [HEME] DAILY 03/01/21 06:00 BASIC METABOLIC PANEL,BMP [CHEM] DAILY CBC W/O DIFF,HEMOGRAM [HEME] DAILY 03/02/21 06:00 BASIC METABOLIC PANEL,BMP [CHEM] DAILY - Plan Plan:: 02/24/21 This is a 69F presenting right lower extremity and foot cellulitis; started on ceftriaxone. MRI foot showing 1. Soft tissue edema on dorsal surface of right foot 2. Mild bony edema and mild enhancement within the second through fifth toes compatible with mild osteomyelitis 3. Small area of enhancement and edema within the distal corner of the proximal phalanx of the first toe compatible wi th more focal osteomyelitis; antibiotics transitioned to cefepime and vancomycin 1. cellulitis of right lower extremity and foot+Diabetic Foot ulcer+ osteomyelitis of phalanx of the first toe and second through fifth toes 2. Type II DM with peripheral neuropathy 3. Hx of HLD 4. Hx of Gout 5. Hx of HTN 6. Hx of depression 7. Hx of hypothyroidism 8. LUCIANA; Cr 1.3 improving to 1.0 Plan -checked MRI foot to rule out osteomyelitis completed on 02/25 -venous doppler US of lower extremities to rule out DVT was negative -discontinue ceftriaxone 02/26; start vanco 02/25; cefepime 02/26 -elevate leg -hold metformin -PT and OT consult -f/u blood cx -PICC line wednesday -outpatient podiatry evaluation -Case discussed with [facility]; Dr Rivers; 02/26 -6 weeks of antibiotics at discharge -Daptomycin 6mg/kg daily -cefepime based on renal function; likely 2gm BID -weekly labs; CBC, CMP, CK, CRP code-Full DVT px-heparin Dispo-anticipated discharge Wednesday
[2021-02-27] MEDS: Heparin Sodium 5,000 Units/ML Vial SUBCUT SCH ×3 (08:41→20:39)
[2021-02-27] MEDS: Allopurinol 100 MG Tab PO SCH (08:42)
[2021-02-27] MEDS: Metoprolol Tartrate 25 MG Tab PO SCH ×2 (08:42→20:43)
[2021-02-27] MEDS: Pregabalin 25 MG Cap PO SCH ×3 (08:43→20:40)
[2021-02-27] MEDS: DULoxetine 30 MG Cap PO SCH ×2 (08:43→20:40)
[2021-02-27] MEDS: Pregabalin 75 MG Cap PO SCH ×3 (08:43→20:40)
[2021-02-27] MEDS: fentaNYL 25 MCG/HR Transdermal Patch TRDERM SCH (08:45)
[2021-02-27] MEDS: Vancomycin 1 GM, Vancomycin 500 MG in Sodium Chloride 0.9% 500 ML IV SCH (15:43)
[2021-02-27] MEDS: Insulin Glarg,Human.Rec.Analog 100 Unit/ML SUBCUT SCH (20:39)
[2021-02-28] MEDS: Levothyroxine 75 MCG Tab PO SCH (06:12)
[2021-02-28] MEDS: Heparin Sodium 5,000 Units/ML Vial SUBCUT SCH ×2 (08:09→15:59)
[2021-02-28] MEDS: Pregabalin 25 MG Cap PO SCH ×2 (08:10→15:59)
[2021-02-28] MEDS: Pregabalin 75 MG Cap PO SCH ×2 (08:10→15:59)
[2021-02-28] MEDS: DULoxetine 30 MG Cap PO SCH (08:10)
[2021-02-28] MEDS: Allopurinol 100 MG Tab PO SCH (08:11)
[2021-02-28] MEDS: Metoprolol Tartrate 25 MG Tab PO SCH (08:11)
--- NOTE | 2021-02-28 11:49 | PCM.DCSUM1 ---
Discharge Summary - Hospital Course HPI Initial Comments: Bari Parkinson History of Present Illness Initial Comments - Free Text/Narative: 75 year old type 1.5 diabetic with rt foot cellulitis and redness. dm fair control. hypertensive cv disease. callouses rt foot. . rule out underlying abscess with xray eval. HOSPITAL COURSE 02/24/21 This is a 69F presenting right lower extremity and foot cellulitis; initially started on ceftriaxone. She underwent MRI foot showing 1. Soft tissue edema on dorsal surface of right foot 2. Mild bony edema and mild enhancement within the second through fifth toes compatible with mild osteomyelitis 3. Small area of enhancement and edema within the distal corner of the proximal phalanx of the first toe compatible with more focal osteomyelitis; antibiotics transitioned to cefepime and vancomycin 1. cellulitis of right lower extremity and foot+Diabetic Foot ulcer+ osteomyelitis of phalanx of the first toe and second through fifth toes 2. Type II DM with peripheral neuropathy 3. Hx of HLD 4. Hx of Gout 5. Hx of HTN 6. Hx of depression 7. Hx of hypothyroidism 8. LUCIANA; Cr 1.3 improving to 1.0 Plan -checked MRI foot to rule out osteomyelitis completed on 02/25 -venous doppler US of lower extremities to rule out DVT was negative -discontinue ceftriaxone 02/26; start vanco 02/25; cefepime 02/26 -elevate leg -hold metformin -PT and OT consult -f/u blood cx -PICC line wednesday -outpatient podiatry evaluation -Case discussed with [facility]; Dr Rivers; 02/26 -6 weeks of antibiotics at discharge -Daptomycin 6mg/kg daily +daily ertapenem -weekly labs; CBC, CMP, CK, CRP Outpatient referral to Podiatry Weekly labs to be forwarded to PCP May consider outpatient Infectious Disease referral Diagnosis: Stroke: No - Discharge Data Discharge Date: 02/28/21 Discharge Disposition: Home, Self-Care 01 Condition: Good - Referral to Home Health Primary Care Physician: Vikash Cortez MD - Patient Summary/Data Consults: Consultations 02/24/21 11:02 PT Evaluation and Treatment [CONS] Routine 02/25/21 10:49 Consult to Physical Therapy [PT Evaluation and Treatment] [CONS] Routine 02/26/21 10:56 OT Evaluation and Treatment [CONS] Routine 02/26/21 11:12 Consult to Speech Language Pathology [WIND ENERGY TECHNICIAN Evaluation and Treatment] [CONS] Routine - Patient Instructions Diet: Usual Diet as Tolerated Notify Provider of: Fever, Increased Pain, Swelling and Redness, Nausea and/or Vomiting - Discharge Plan *PRESCRIPTION DRUG MONITORING PROGRAM REVIEWED*: Not Applicable *COPY OF PRESCRIPTION DRUG MONITORING REPORT IN PATIENT MANISH: Not Applicable Home Medications: Home Meds Pregabalin [Lyrica] 200 mg PO TID 07/03/14 [History] metFORMIN [Glucophage] 1,500 mg PO DAILY 07/03/14 [History] Levothyroxine 75 mcg PO DAILY 08/01/17 [History] Metoprolol Tartrate 12.5 mg PO BID 08/01/17 [History] Simvastatin [Zocor] 10 mg PO BEDTIME 08/01/17 [History] allopurinoL [Zyloprim] 100 mg PO DAILY 08/01/17 [History] DULoxetine [Cymbalta] 60 mg PO BID 04/04/19 [History] fentaNYL [Duragesic] 25 mcg TRDERM ASDIRECTED #0 04/06/19 [Rx] Insulin Glargine,Hum.Rec.Anlog [Basaglar Kwikpen U-100] 32 units SUBCUT BEDTIME 02/23/21 [History] oxyCODONE HCl/Acetaminophen [Oxycodone-Acetaminophen 5-325] 1 each PO Q6HR PRN 02/23/21 [History] Oxygen Therapy Mode: Room Air Patient Handouts: Osteomyelitis, Adult, Sepsis, Self Care, Adult Referrals: Juan J De La Cruz II, DPM [Physician] - 03/04/21 3:00 pm (check in at 2:50) Vikash Cortez MD [Primary Care Provider] - 03/05/21 11:30 am - Discharge Summary/Plan Comment DC Time >30 min.: Yes (45 minutes) Total # of Minutes for Discharge Time: 45 - Patient Data Vitals - Most Recent: Last Vital Signs Temp 97.9 F 02/28/21 07:33 Pulse 53 L 02/28/21 07:33 Resp 16 02/28/21 07:33 BP 130/61 02/28/21 07:33 Pulse Ox 95 02/28/21 07:33 Weight - Most Recent: 223 lb 3.2 oz I&O - Last 24 hours: Intake & Output 02/27/21 02/28/21 02/28/21 22:59 06:59 14:59 Intake Total 2000 1050 200 Output Total 1650 3200 Balance 350 -2150 200 Lab Results - Last 24 hrs: Laboratory Results - last 24 hr 02/27/21 02/28/21 02/28/21 Range/Units 16:44 06:15 06:25 WBC 10.30 H (3.98-10.04) K/mm3 RBC 3.77 L (3.98-5.22) M/mm3 Hgb 11.5 (11.2-15.7) gm/dl Hct 35.5 (34.1-44.9) % MCV 94.2 (79.4-94.8) fl MCH 30.5 (25.6-32.2) pg MCHC 32.4 (32.2-35.5) g/dl RDW Std Deviation 47.2 H (36.4-46.3) fL Plt Count 262 (182-369) K/mm3 MPV 10.4 (9.4-12.3) fl Sodium (136-145) mEq/L Potassium (3.5-5.1) mEq/L Chloride (98-107) mEq/L Carbon Dioxide (21-32) mEq/L Anion Gap (5-15) BUN (7-18) mg/dL Creatinine (0.55-1.02) mg/dL Est Cr Clr Drug Dosing mL/min Estimated GFR (MDRD) (>60) mL/min BUN/Creatinine Ratio (14-18) Glucose (70-99) mg/dL POC Glucose 106 H 112 H (70-99) mg/dL Calcium (8.5-10.1) mg/dL 02/28/21 Range/Units 06:25 WBC (3.98-10.04) K/mm3 RBC (3.98-5.22) M/mm3 Hgb (11.2-15.7) gm/dl Hct (34.1-44.9) % MCV (79.4-94.8) fl MCH (25.6-32.2) pg MCHC (32.2-35.5) g/dl RDW Std Deviation (36.4-46.3) fL Plt Count (182-369) K/mm3 MPV (9.4-12.3) fl Sodium 144 (136-145) mEq/L Potassium 4.4 (3.5-5.1) mEq/L Chloride 107 (98-107) mEq/L Carbon Dioxide 28 (21-32) mEq/L Anion Gap 13.4 (5-15) BUN 13 (7-18) mg/dL Creatinine 0.9 (0.55-1.02) mg/dL Est Cr Clr Drug Dosing 50.90 mL/min Estimated GFR (MDRD) > 60 (>60) mL/min BUN/Creatinine Ratio 14.4 (14-18) Glucose 116 H (70-99) mg/dL POC Glucose (70-99) mg/dL Calcium 8.7 (8.5-10.1) mg/dL Med Orders - Current: Current Medications Allopurinol (Allopurinol 100 Mg Tab) 100 mg PO DAILY [facility] Last Admin: 02/28/21 08:11 Dose: 100 mg Documented by: Duloxetine HCl (Duloxetine 30 Mg Cap) 60 mg PO BID [facility] Last Admin: 02/28/21 08:10 Dose: 60 mg Documented by: Fentanyl (Fentanyl 25 Mcg/Hr Transdermal Patch) 25 mcg TRDERM Q72H [facility] Last Admin: 02/27/21 08:45 Dose: 25 mcg Documented by: Heparin Sodium (Porcine) (Heparin Sodium 5,000 Units/Ml Vial) 5,000 units SUBCUT TID [facility] Last Admin: 02/28/21 08:09 Dose: 5,000 units Documented by: Cefepime HCl 2 gm/ Premix 50 mls @ 100 mls/hr IV Q12H [facility] Last Admin: 02/27/21 23:18 Dose: 100 mls/hr Documented by: Daptomycin 600 mg/ Sodium (Chloride) 50 mls @ 100 mls/hr IV ONETIME ONE Stop: 02/28/21 16:29 Insulin Glargine (Insulin Glarg,Human.Rec.Analog 100 Unit/Ml) 32 unit SUBCUT BEDTIME [facility] Last Admin: 02/27/21 20:39 Dose: 32 units Documented by: Levothyroxine Sodium (Levothyroxine 75 Mcg Tab) 75 mcg PO ACBREAKFAST [facility] Last Admin: 02/28/21 06:12 Dose: 75 mcg Documented by: Metoprolol Tartrate (Metoprolol Tartrate 25 Mg Tab) 12.5 mg PO BID [facility] Last Admin: 02/28/21 08:11 Dose: Not Given Documented by: Miscellaneous Information (Remove Fentanyl 25 Mcg Patch) 1 ea TRDERM Q72H [facility] Last Admin: 02/27/21 08:46 Dose: 1 ea Documented by: Oxycodone/Acetaminophen (Acetaminophen/Oxycodone 325-5 Mg Tab) 1 tab PO Q6H PRN PRN Reason: Pain (moderate 4-6) Last Admin: 02/26/21 15:33 Dose: 1 tab Documented by: Pregabalin (Pregabalin 75 Mg Cap) 150 mg PO TID [facility] Last Admin: 02/28/21 08:10 Dose: 150 mg Documented by: Pregabalin (Pregabalin 25 Mg Cap) 50 mg PO TID [facility] Last Admin: 02/28/21 08:10 Dose: 50 mg Documented by: Sodium Chloride (Sodium Chloride 0.9% 10 Ml Syringe) 10 ml FLUSH ONETIME PRN PRN Reason: Keep Vein Open Discontinued Medications Fentanyl (Fentanyl 50 Mcg/Hr Transdermal Patch) 25 mcg TRDERM ASDIRECTED [facility] Gadobenate Dimeglumine (Gadobenate Dimeglumine 529 Mg/Ml 20 Ml Sdv) 20 ml IVPUSH ONETIME ONE Stop: 02/25/21 12:10 Last Admin: 02/25/21 12:18 Dose: 20 ml Documented by: Heparin Sodium (Porcine) (Heparin Sodium 5,000 Units/Ml Vial) 5,000 units SUBCUT Q8H [facility] Piperacillin Sod/Tazobactam (Sod 4.5 gm/ Sodium Chloride) 100 mls @ 25 mls/hr IV ONETIME ONE Stop: 02/23/21 20:57 Last Admin: 02/23/21 17:34 Dose: Not Given Documented by: Lactated Ringer's (Ringers, Lactated) 1,000 mls @ 125 mls/hr IV ASDIRECTED [facility] Last Admin: 02/23/21 18:20 Dose: 125 mls/hr Documented by: Vancomycin HCl 1.5 gm/ Sodium (Chloride) 500 mls @ 333.333 mls/hr IV ONETIME O NE Stop: 02/23/21 18:44 Last Admin: 02/23/21 18:22 Dose: 333.333 mls/hr Documented by: Piperacillin Sod/Tazobactam (Sod 4.5 gm/ Sodium Chloride) 100 mls @ 200 mls/hr IV ONETIME ONE Stop: 02/23/21 18:01 Last Admin: 02/23/21 17:35 Dose: 200 mls/hr Documented by: Ceftriaxone Sodium 1 gm/ (Sodium Chloride) 100 mls @ 200 mls/hr IV Q24H [facility] Last Admin: 02/25/21 21:09 Dose: 200 mls/hr Documented by: Sodium Chloride (Normal Saline) 1,000 mls @ 75 mls/hr IV ASDIRECTED [facility] Last Admin: 02/25/21 01:16 Dose: 75 mls/hr Documented by: Sodium Chloride (Normal Saline) 1,000 mls @ 75 mls/hr IV ASDIRECTED [facility] Vancomycin HCl 2 gm/ Sodium (Chloride) 500 mls @ 250 mls/hr IV ONETIME ONE Stop: 02/25/21 17:59 Last Admin: 02/25/21 16:01 Dose: 250 mls/hr Documented by: Vancomycin HCl 1 gm/Vancomycin HCl 500 mg/ Sodium Chloride 500 mls @ 250 mls/hr IV Q24H [facility] Last Admin: 02/27/21 15:43 Dose: 250 mls/hr Documented by: Cefepime HCl 2 gm/ Premix 50 mls @ 100 mls/hr IV Q24H [facility] Last Admin: 02/26/21 12:34 Dose: 100 mls/hr Documented by: Insulin Glargine (Insulin Glarg,Human.Rec.Analog 100 Unit/Ml) 32 unit SUBCUT BEDTIME [facility] Levothyroxine Sodium (Levothyroxine 75 Mcg Tab) 75,000 mcg PO DAILY [facility] Sodium Chloride (Sodium Chloride 0.9% 10 Ml Syringe) 20 ml FLUSH ASDIRECTED [facility] Stop: 02/25/21 15:00 Last Admin: 02/25/21 12:19 Dose: 20 ml Documented by: Vancomycin HCl (Pharmacy To Dose - Vancomycin) 1 dose .XX ASDIRECTED [facility] Vancomycin HCl (Pharmacy To Dose - Vancomycin) 1 dose .XX ASDIRECTED [facility] - Exam Physical Findings Comments:: General: Alert, Oriented HEENT: EOMI, Mucous Membr. Moist/[place] Neck: Supple Lungs: Clear to Auscultation, Normal Respiratory Effort Cardiovascular: Regular Rate, Regular Rhythm GI/Abdominal Exam: Soft, Non-Tender, No Distention Extremities: Other (Improved right lower extremity edema and erythema) Skin: Warm, Dry Neurological: No New Focal Deficit Psy/Mental Status: Alert, Normal Affect, Normal Mood Discharge Operative/Procedures - Procedures Performed Operations/Procedure Comment: PICC line placement
--- NOTE | 2021-02-28 13:20 | CR ---
Chest: Portable supine view of the chest was obtained. Study is centered to the mediastinum. Impression: Prior chest x-ray of 02/23/21. Right-sided PICC line is seen. Tip lies within the right atrium. Lungs that are visualized show no acute abnormality. Impression: 1. Tip of PICC line within the right atrium. Diagnostic code #3
--- NOTE | 2021-02-28 13:21 | CR ---
Chest: Portable supine view of the chest was obtained. Comparison: Prior chest x-ray performed earlier on same day (12:39 PM). Tip of PICC line has been withdrawn. Tip lies near the junction of the right atrium and superior vena cava. Lungs show no acute parenchymal change. Electrostimulating wire is noted within the lower thoracic spine. Impression: 1. Slightly low position of PICC line as described above. Diagnostic code #3
--- NOTE | 2021-02-28 13:21 | CR ---
Chest: Portable supine view of the chest was obtained. Comparison: Prior chest x-ray performed earlier on the same day (12:41 PM). PICC line has been withdrawn and now lies within the superior vena cava in satisfactory position. Electrostimulating wires are seen within the thoracic spine. Lungs remain clear. Impression: 1. Satisfactory position of PICC line. Diagnostic code #2
[2021-02-28] MEDS: Cefepime 2 GM in Premix Bag 1 BAG IV SCH (13:27)
--- NOTE | 2021-02-28 13:36 | PCM.PRNOTE ---
- Free Text/Narrative Note: Requested to insert PICC line by attending physician Dr. Daley for continuous IV therapy.. Patient identified, procedure explained, surgical consent signed. VS reviewed. Left arm abducted and placed on the bedside table. Area cleaned . Left antecubital and upper arm area clean with chloroprep. 2 unsuccessful attempts to start a PIV in a sterile fashion on left side. Changed to right side. Right arm abducted and placed on the bedside table. Area cleaned . Right antecubital and upper arm area clean with chloroprep. 2 unsuccessful attempts to start a PIV in a sterile fashion on right side, 3rd attempt successful, good , catheter capped in a sterile fashion. (Basilic vein, 20 g IV catheter puncture, good blood flow observed) Mask, head cover and sterile gown. Time out and pre-procedure checklist performed. Distance from antecubital space to mid-chest measured = 52 cm. Whole body sterile drape used. Cental line components primed with sterile saline. Area re-prepped with chloraprep, guidewire inserted without resistance, skin infiltrated with 1% Lidocaine and cut dilated, Groshong introducer placed without resistance. Central line (Groshong NXT ClearVue PICC 4F REF [id number], LOT [id number] ) inserted up to the marker 50, CXR done. Image showed the catheter deep in the right atrium. Catheter pulled out to the marker 42 at the skin. Series of CXRs showed correct advancement of the catheter tip. Catheter stylet removed and the catheter cut at marker 50. Connectors and HepLock port attached. System flushed with NS easily multiple times, blood return confirmed.. Catheter is secured (42 cm at the skin, 50 ath the catheter hub) with StatLock, sterile dressing with antibiotic impregnated gel placed. Patient tolerated the procedure well. Portable CXR confirms the placement of the PICC tip at SVC junction per radiology. Discharge instructions and PICC care explanation given to the patient. Times : 11:30 - 12:45
[2021-02-28] MEDS ORDERED: DAPTOmycin 600 MG in Sodium Chloride 0.9% 50 ML IV ONE (16:00)
[2021-02-28 16:52] VITALS: BP 144/67; PULSE 53
== END 2021-02-28 17:43 | disposition home or self-care (01) | DRG 638 ==
LOC: JD.ED 12:24 → JD.MS 20:15
PROVIDERS: ADMIT Pediatrics; ATTEND Pediatrics
PROC: 02HV33Z Insertion of Infusion Device into Superior Vena Cava, Percutaneous Approach (ICD-10-PCS; principal; 2021-02-28)
DX: E11.69 Type 2 diabetes mellitus with other specified complication (principal); M86.8X7 Other osteomyelitis, ankle and foot; L03.115 Cellulitis of right lower limb; F11.20 Opioid dependence, uncomplicated; E11.621 Type 2 diabetes mellitus with foot ulcer; E11.42 Type 2 diabetes mellitus with diabetic polyneuropathy; N17.9 Acute kidney failure, unspecified; E78.5 Hyperlipidemia, unspecified; M10.9 Gout, unspecified; I10 Essential (primary) hypertension; F32.9 Major depressive disorder, single episode, unspecified; E03.9 Hypothyroidism, unspecified; H54.7 Unspecified visual loss; E78.00 Pure hypercholesterolemia, unspecified; Z87.442 Personal history of urinary calculi; Z20.822 Contact with and (suspected) exposure to COVID-19; G89.4 Chronic pain syndrome; Z98.49 Cataract extraction status, unspecified eye; Z90.49 Acquired absence of other specified parts of digestive tract; Z90.710 Acquired absence of both cervix and uterus; Z79.4 Long term (current) use of insulin; Z79.899 Other long term (current) drug therapy; Z79.890 Hormone replacement therapy; Z98.890 Other specified postprocedural states
CPT/HCPCS: 36415; 70450; 71045; 73630; 80053; 81001; 82947; 83605; 84484; 85007; 85027; 85610; 85730; 87040 ×2; 93005; 96365; 96366; 96367; 99285; J2543; J3370; J7040; J7120; U0002; 36569; 73720-26-RT; 73720-RT; 80048; 82550; 85025; 86140; 92523-GN; 93010; 93970; 93970-26; 97161-GP; 99100; 99232; 99239; 99284; A9270-GY; A9577; C1751; J0692; J0696; J0878; J1644; J1815-GY; J7030

== ENCOUNTER 2021-07-13 18:19 | Emergency (ER) | payer MEDICARE, BC ==
[2021-07-13 18:57] VITALS: BP 115/86; PULSE 74
[2021-07-13] MEDS ORDERED: Cephalexin 500 MG Cap PO ONE (19:11)
--- NOTE | 2021-07-13 19:16 | EDM.PDOC ---
ED HPI GENERAL MEDICAL PROBLEM - General Chief Complaint: Lower Extremity Injury/Pain Stated Complaint: RT FOOT LACERATION Time Seen by Provider: 07/13/21 19:12 Source of Information: Reports: Patient History Limitations: Reports: Other (Hearing impairment) - History of Present Illness INITIAL COMMENTS - FREE TEXT/NARRATIVE: Patient is a 76-year-old female presented to the emergency room with a chief complaint of right foot redness. She has a past medical history of diabetes and peripheral neuropathy. Patient does not have any sensation in her right foot. She is concerned because her right foot appears to be more red. She had a callus removed several days ago by her outpatient coordinator. Yesterday, she noticed there was a blister that formed and subsequently ruptured. Today, she noticed her foot seem to be more red. She is not experiencing any fevers, vomiting, body aches, fatigue. No interventions performed prior to arrival. Right Foot Pain Score (Numeric/FACES): 3 - Related Data Allergies Allergy/AdvReac Type Severity Reaction Status Date / Time No Known Allergies Allergy Verified 07/13/21 18:57 Home Meds: Home Meds Pregabalin [Lyrica] 200 mg PO TID 07/03/14 [History] metFORMIN [Glucophage] 1,500 mg PO DAILY 07/03/14 [History] Levothyroxine 75 mcg PO DAILY 08/01/17 [History] Metoprolol Tartrate 12.5 mg PO BID 08/01/17 [History] Simvastatin [Zocor] 10 mg PO BEDTIME 08/01/17 [History] allopurinoL [Zyloprim] 100 mg PO DAILY 08/01/17 [History] DULoxetine [Cymbalta] 60 mg PO BID 04/04/19 [History] fentaNYL [Duragesic] 25 mcg TRDERM ASDIRECTED #0 04/06/19 [Rx] Insulin Glargine,Hum.Rec.Anlog [Basaglar Kwikpen U-100] 32 units SUBCUT BEDTIME 02/23/21 [History] oxyCODONE HCl/Acetaminophen [Oxycodone-Acetaminophen 5-325] 1 each PO Q6HR PRN 02/23/21 [History] Past Medical History HEENT History: Reports: Hard of Hearing, Impaired Vision Cardiovascular History: Reports: High Cholesterol, Hypertension Gastrointestinal History: Reports: Chronic Constipation, Other (See Below) Other Gastrointestinal History: started probiotics which helped with constipation Genitourinary History: Reports: Renal Calculus Other Genitourinary History: 40 yrs. ago kidney problem unknown DIRECTOR OF CAREER RESOURCES History: Reports: Musculoskeletal History: Reports: Gout Neurological History: Reports: Migraines, Neuropathy, Peripheral Other Neuro History: migraines stopped after hysterectomy in 1979 Psychiatric History: Reports: Depression, Other (See Below) Other Psychiatric History: admits to some memory impairment- needs time to think of names, etc. Endocrine/Metabolic History: Reports: Diabetes, Type II, Hypothyroidism Hematologic History: Reports: None Dermatologic History: Reports: Cellulitis - Infectious Disease History Infectious Disease History: Reports: Chicken Pox, Measles - Past Surgical History HEENT Surgical History: Reports: Cataract Surgery, Oral Surgery Other HEENT Surgeries/Procedures: has hearing aides at home; glasses on GI Surgical History: Reports: Appendectomy Female Surgical History: Reports: Hysterectomy Musculoskeletal Surgical History: Reports: Other (See Below) Other Musculoskeletal Surgeries/Procedures:: left ankle surgery Social & Family History - Family History Family Medical History: No Pertinent Family History - Tobacco Use Tobacco Use Status *Q: Never Tobacco User Second Hand Smoke Exposure: No - Caffeine Use Caffeine Use: Reports: Coffee - Recreational Drug Use Recreational Drug Use: No Review of Systems - Review of Systems Review Of Systems: Comprehensive ROS is negative, except as noted in HPI. ED EXAM, GENERAL - Physical Exam Exam: See Below Free Text/Narrative:: I have reviewed the triage vital signs Const: Well nourished, well developed, appears stated age Eyes: no conjunctival injection HENT: No signs of trauma or swelling, Neck supple without meningismus CV: Regular Rate Rhythm, Warm, well-perfused extremities RESP: Unlabored respiratory effort MSK: No gross deformities appreciated Skin: Right foot demonstrates ruptured blister on the plantar surface of the forefoot. There is some slight erythema with streaks to the dorsum of the foot but nothing extending to the ankle. There is no fluctuance. No areas of tenderness or crepitus. Neuro: Alert, process development technician II-XII grossly intact. Sensation and motor function of extremities grossly intact. Psych: Appropriate mood and affect. Course - Vital Signs Last Recorded V/S: Last Vital Signs Temp 36.2 C 07/13/21 18:56 Pulse 74 07/13/21 18:56 Resp 15 07/13/21 18:56 BP 115/86 12/26/21 18:56 Pulse Ox 100 07/13/21 18:56 - Orders/Labs/Meds Orders: Active Orders 24 hr Category Date Time Status cephALEXin [Keflex] Med 07/13/21 19:11 Once 500 mg PO ONETIME ONE Departure - Departure Time of Disposition: 19:15 Disposition: Home, Self-Care 01 Clinical Impression: Cellulitis of right foot - Discharge Information Referrals: Vikash Cortez MD [Primary Care Provider] - Additional Instructions: Please follow-up with your primary care physician or outpatient coordinator in the next 48 hours for repeat examination. Sepsis Event Note (ED) - Focused Exam Vital Signs: Vital Signs Temp Pulse Resp BP Pulse Ox 07/13/21 18:56 36.2 C 74 15 115/86 100 - My Orders Last 24 Hours: My Active Orders 07/13/21 19:11 cephALEXin [Keflex] 500 mg PO ONETIME ONE - Assessment/Plan Last 24 Hours: My Active Orders 07/13/21 19:11 cephALEXin [Keflex] 500 mg PO ONETIME ONE Assessment:: Patient is a 76-year-old female presented to the emergency room with a complaint of redness to the right foot. Her exam is concerning for early cellulitis. Given her concomitant diabetes with neuropathy, I believe it is prudent to initiate oral antibiotics. She is not demonstrating any signs of sepsis or systemic infection. Patient be started on antibiotics tonight. I did instruct her to follow-up with her primary care physician in the next 48 hours for repeat examination. All questions were addressed and answered. Return precautions given as usual. Patient agrees with plan of care.
== END 2021-07-13 19:28 | disposition home or self-care (01) ==
LOC: JD.ED 18:19
DX: L03.115 Cellulitis of right lower limb (principal); E11.42 Type 2 diabetes mellitus with diabetic polyneuropathy; E78.00 Pure hypercholesterolemia, unspecified; I10 Essential (primary) hypertension; E03.9 Hypothyroidism, unspecified; M10.9 Gout, unspecified; Z79.84 Long term (current) use of oral hypoglycemic drugs; Z79.899 Other long term (current) drug therapy
CPT/HCPCS: 99283; A9270

== ENCOUNTER 2022-02-06 13:33 | Inpatient (IN) | payer MEDICARE, BC ==
[2022-02-06] MEDS ORDERED: Piperacillin/Tazobactam 4.5 GM in Sodium Chloride 0.9% 100 ML IV ONE ×2 (16:50→17:30)
[2022-02-06] MEDS ORDERED: Vancomycin 1 GM, Vancomycin 500 MG in Sodium Chloride 0.9% 500 ML IV ONE (17:15)
[2022-02-06] MEDS ORDERED: Ondansetron 4 MG Tab.DIS PO PRN (17:59)
[2022-02-06] MEDS ORDERED: Zolpidem 5 MG Tab PO PRN (17:59)
[2022-02-06] MEDS ORDERED: Acetaminophen 325 MG Tab PO PRN (17:59)
[2022-02-06] MEDS ORDERED: Sodium Chloride 0.9% 1,000 ML IV SCH (18:00)
[2022-02-06] MEDS ORDERED: Enoxaparin 40 MG/0.4 ML Syringe SUBCUT SCH (18:15)
[2022-02-06] MEDS ORDERED: fentaNYL 50 MCG/HR Transdermal Patch TRDERM SCH (18:15)
[2022-02-06] MEDS: Pravastatin 20 MG Tab PO SCH (21:16)
[2022-02-06] MEDS: DULoxetine 30 MG Cap PO SCH (21:16)
[2022-02-06] MEDS: Insulin Glargine,Human Rec. Analog 100 Units/ML 3 ML Pen SUBCUT SCH (21:16)
[2022-02-06] MEDS: Metoprolol Tartrate 25 MG Tab PO SCH (21:19)
[2022-02-06] MEDS: Pregabalin 25 MG Cap PO SCH (21:20)
[2022-02-06] MEDS: Pregabalin 75 MG Cap PO SCH (21:21)
[2022-02-06] MEDS: Enoxaparin 40 MG/0.4 ML Syringe SUBCUT SCH (21:21)
[2022-02-07] MEDS ORDERED: Piperacillin/Tazobactam 3.375 GM in Sodium Chloride 0.9% 100 ML IV SCH ×2
[2022-02-07] MEDS ORDERED: Piperacillin/Tazobactam 4.5 GM in Sodium Chloride 0.9% 100 ML IV SCH (02:00)
[2022-02-07] MEDS: Piperacillin/Tazobactam 4.5 GM in Sodium Chloride 0.9% 100 ML IV SCH ×3 (02:55→18:15)
[2022-02-07] MEDS: Levothyroxine 75 MCG Tab PO SCH (05:49)
[2022-02-07] MEDS: Metoprolol Tartrate 25 MG Tab PO SCH ×2 (08:00→21:28)
[2022-02-07] MEDS: Pregabalin 75 MG Cap PO SCH ×3 (08:03→21:30)
[2022-02-07] MEDS: Allopurinol 100 MG Tab PO SCH (08:04)
[2022-02-07] MEDS: Pregabalin 25 MG Cap PO SCH ×3 (08:04→21:30)
[2022-02-07] MEDS: DULoxetine 30 MG Cap PO SCH ×2 (08:04→21:23)
[2022-02-07] MEDS ORDERED: metFORMIN 500 MG Tab PO SCH (09:00)
[2022-02-07] MEDS: Vancomycin 1.5 GM in Sodium Chloride 0.9% 500 ML IV SCH (15:14)
[2022-02-07] MEDS ORDERED: Vancomycin 1 GM, Vancomycin 500 MG in Sodium Chloride 0.9% 500 ML IV SCH (16:00)
[2022-02-07] MEDS: oxyCODONE 5 MG Tab PO PRN ×2 (16:29→21:31)
[2022-02-07] MEDS: Insulin Glargine,Human Rec. Analog 100 Units/ML 3 ML Pen SUBCUT SCH (21:27)
[2022-02-07] MEDS: Enoxaparin 40 MG/0.4 ML Syringe SUBCUT SCH (21:30)
[2022-02-07] MEDS: Pravastatin 20 MG Tab PO SCH (21:31)
[2022-02-08] MEDS: Piperacillin/Tazobactam 4.5 GM in Sodium Chloride 0.9% 100 ML IV SCH ×3 (02:55→17:14)
[2022-02-08] MEDS: Levothyroxine 75 MCG Tab PO SCH (06:32)
[2022-02-08] MEDS ORDERED: fentaNYL 25 MCG/HR Transdermal Patch TOP SCH (09:00)
[2022-02-08] MEDS ORDERED: Piperacillin/Tazobactam 4.5 GM Vial ONE (09:08)
[2022-02-08] MEDS: Allopurinol 100 MG Tab PO SCH (09:26)
[2022-02-08] MEDS: Pregabalin 75 MG Cap PO SCH ×3 (09:26→20:12)
[2022-02-08] MEDS: Pregabalin 25 MG Cap PO SCH ×3 (09:26→20:18)
[2022-02-08] MEDS: DULoxetine 30 MG Cap PO SCH ×2 (09:26→20:12)
[2022-02-08] MEDS: Metoprolol Tartrate 25 MG Tab PO SCH ×2 (09:33→20:15)
[2022-02-08] MEDS: Saccharomyces Boulardii (Probiotic) 250 MG Cap PO SCH ×2 (12:43→17:14)
[2022-02-08] MEDS: Clindamycin Phosphate in D5W 900 MG in Premix Bag 1 BAG IV SCH ×4 (12:43→18:32)
[2022-02-08] MEDS: Vancomycin 1.5 GM in Sodium Chloride 0.9% 500 ML IV SCH (15:01)
[2022-02-08] MEDS: oxyCODONE 5 MG Tab PO PRN ×2 (15:33→20:18)
[2022-02-08] MEDS: Pravastatin 20 MG Tab PO SCH (20:12)
[2022-02-08] MEDS: Insulin Glargine,Human Rec. Analog 100 Units/ML 3 ML Pen SUBCUT SCH (20:35)
[2022-02-08] MEDS: Enoxaparin 40 MG/0.4 ML Syringe SUBCUT SCH (20:36)
[2022-02-09] MEDS: Clindamycin Phosphate in D5W 900 MG in Premix Bag 1 BAG IV SCH ×4 (02:29→11:12)
[2022-02-09] MEDS: Piperacillin/Tazobactam 4.5 GM in Sodium Chloride 0.9% 100 ML IV SCH ×2 (03:27→09:06)
[2022-02-09] MEDS: Saccharomyces Boulardii (Probiotic) 250 MG Cap PO SCH ×2 (06:13→11:11)
[2022-02-09] MEDS: Levothyroxine 75 MCG Tab PO SCH (06:13)
[2022-02-09] MEDS: Pregabalin 25 MG Cap PO SCH ×2 (08:46→15:34)
[2022-02-09] MEDS: Allopurinol 100 MG Tab PO SCH (08:46)
[2022-02-09] MEDS: Pregabalin 75 MG Cap PO SCH ×2 (08:46→15:34)
[2022-02-09] MEDS: DULoxetine 30 MG Cap PO SCH (08:48)
[2022-02-09] MEDS: Metoprolol Tartrate 25 MG Tab PO SCH (08:48)
[2022-02-09 09:08] VITALS: BP 109/74; PULSE 53
[2022-02-09] MEDS ORDERED: Sodium Chloride 0.9% 10 ML Syringe FLUSH SCH (10:30)
[2022-02-09] MEDS ORDERED: Gadobenate Dimeglumine 529 MG/ML 20 ML SDV IVPUSH ONE (10:30)
[2022-02-09 11:28] LABS: HEMOGLOBIN A1C 7.4 %
[2022-02-09] MEDS ORDERED: Furosemide 40 MG/4 ML VIAL IVPUSH ONE (12:41)
[2022-02-09] MEDS ORDERED: VANCOmycin 1.5 GM/300 ML 1.5 GM in Premix Bag 1 BAG IV SCH (16:00)
== END 2022-02-09 17:50 | DRG 871 ==
LOC: JD.ED 13:33 → JD.MS 17:29
PROVIDERS: ADMIT Hospitalist; ATTEND Hospitalist
DX: N39.0 Urinary tract infection, site not specified (principal); A41.9 Sepsis, unspecified organism; G93.41 Metabolic encephalopathy; L03.115 Cellulitis of right lower limb; N30.00 Acute cystitis without hematuria; R65.20 Severe sepsis without septic shock; E66.9 Obesity, unspecified; I10 Essential (primary) hypertension; E03.9 Hypothyroidism, unspecified; E11.621 Type 2 diabetes mellitus with foot ulcer; L97.529 Non-pressure chronic ulcer of other part of left foot with unspecified severity; L97.519 Non-pressure chronic ulcer of other part of right foot with unspecified severity; Z20.822 Contact with and (suspected) exposure to COVID-19; E78.5 Hyperlipidemia, unspecified; H91.10 Presbycusis, unspecified ear; H91.90 Unspecified hearing loss, unspecified ear; H54.7 Unspecified visual loss; E78.00 Pure hypercholesterolemia, unspecified; K59.09 Other constipation; M10.9 Gout, unspecified; G43.909 Migraine, unspecified, not intractable, without status migrainosus; E11.42 Type 2 diabetes mellitus with diabetic polyneuropathy; F32.A Depression, unspecified; Z79.4 Long term (current) use of insulin; Z79.890 Hormone replacement therapy; Z79.899 Other long term (current) drug therapy; Z87.440 Personal history of urinary (tract) infections; Z86.19 Personal history of other infectious and parasitic diseases; Z98.49 Cataract extraction status, unspecified eye; Z90.710 Acquired absence of both cervix and uterus; Z68.35 Body mass index [BMI] 35.0-35.9, adult
CPT/HCPCS: 36415; 70450; 71045; 73630; 80053; 81001; 82947; 83605; 84484; 85025; 85610; 85730; 87040 ×2; 87086; 93005; U0002; 73720-26-RT; 73720-RT; 80048; 80202; 83036; 84443; 85027; 86140; 87070; 87077; 87186; 87205; 93010; 96365; 96368; 97162-GP; 97166-GO; 97597-GP; 99222; 99232; 99239; 99284; 99285-25; A9270-GY; A9577; J1650; J1815-GY; J1940; J2543; J3370; J3490; J7030; J7040